=== PATIENT | female | born 1990 | race Caucasian/White ===

== ENCOUNTER 2019-04-11 22:31 | Emergency (ER) | payer BC ==
--- NOTE | 2019-04-11 22:53 | EDM.PDOC ---
ED HPI GENERAL MEDICAL PROBLEM - General Chief Complaint: ENT Problem Stated Complaint: ISSUES WITH RT EAR Time Seen by Provider: 04/11/19 22:51 Source of Information: Reports: Patient - History of Present Illness INITIAL COMMENTS - FREE TEXT/NARRATIVE: HISTORY AND PHYSICAL: History of present illness: []Patient with anxiety presents with a "whooshing sensation in her right ear ", she states that the whooshing sensation makes her panicky and then she notices that her heart rate increases when she is panicking at current she is in no distress She has a history of seasonal allergy and anxiety Review of systems: As per history of present illness and below otherwise all systems reviewed and negative. Past medical history: As per history of present illness and as reviewed below otherwise noncontributory. Surgical history: As per history of present illness and as reviewed below otherwise noncontributory. Social history: No reported history of drug or alcohol abuse. Family history: As per history of present illness and as reviewed below otherwise noncontributory. Physical exam: HEENT: Atraumatic, normocephalic, pupils reactive, negative for conjunctival pallor or scleral icterus, mucous membranes moist, throat clear, neck supple, nontender, trachea midline. Bilateral ear effusion noted Lungs: Clear to auscultation, breath sounds equal bilaterally, chest nontender. Heart: S1S2, regular, negative for clicks, rubs, or JVD. Abdomen: Soft, nondistended, nontender. Negative for masses or hepatosplenomegaly. Negative for costovertebral tenderness. Pelvis: Stable nontender. Genitourinary: Deferred. Rectal: Deferred. Extremities: Atraumatic, negative for cords or calf pain. Neurovascular unremarkable. Neuro: Awake, alert, oriented. Cranial nerves II through XII unremarkable. Cerebellum unremarkable. Motor and sensory unremarkable throughout. Exam nonfocal. Diagnostics: [Clinical ] Therapeutics: [Continue current daily medications Prednisone 10 mg by mouth daily for 5 days ] Impression: [ bilateral ear effusion Seasonal allergies Anxiety ] Definitive disposition and diagnosis as appropriate pending reevaluation and review of above. Bilateral Chest Pain Score (Numeric/FACES): 10 - Related Data Allergies Allergy/AdvReac Type Severity Reaction Status Date / Time No Known Allergies Allergy Verified 04/11/19 22:43 Home Meds: Home Meds Gabapentin [Neurontin] 800 mg PO DAILY 04/11/19 [History] Past Medical History HEENT History: Reports: Other (See Below) Other HEENT History: tinittis Psychiatric History: Reports: Anxiety Social & Family History - Tobacco Use Smoking Status *Q: Former Smoker Used Tobacco, but Quit: Yes Month/Year Tobacco Last Used: 2014 - Recreational Drug Use Recreational Drug Use: No ED ROS GENERAL - Review of Systems Review Of Systems: See Below ED EXAM, GENERAL - Physical Exam Exam: See Below Course - Vital Signs Last Recorded V/S: Last Vital Signs Temp 97.4 F 04/11/19 22:40 Pulse 124 H 04/11/19 22:40 Resp BP 124/86 04/11/19 22:40 Pulse Ox 100 04/11/19 22:40 Departure - Departure Time of Disposition: 22:52 Disposition: Home, Self-Care 01 Condition: Good Clinical Impression: Middle ear effusion - Discharge Information Referrals: PCP,None [Primary Care Provider] - Additional Instructions: The following information is given to patients seen in the emergency department who are being discharged to home. This information is to outline your options for follow-up care. We provide all patients seen in our emergency department with a follow-up referral. The need for follow-up, as well as the timing and circumstances, are variable depending upon the specifics of your emergency department visit. If you don't have a primary care physician on staff, we will provide you with a referral. We always advise you to contact your personal physician following an emergency department visit to inform them of the circumstance of the visit and for follow-up with them and/or the need for any referrals to a consulting specialist. The emergency department will also refer you to a specialist when appropriate. This referral assures that you have the opportunity for follow-up care with a specialist. All of these measure are taken in an effort to provide you with optimal care, which includes your follow-up. Under all circumstances we always encourage you to contact your private physician who remains a resource for coordinating your care. When calling for follow-up care, please make the office aware that this follow-up is from your recent emergency room visit. If for any reason you are refused follow-up, please contact the [facility] emergency department at and asked to speak to the emergency department charge nurse.
== END 2019-04-11 23:16 | disposition home or self-care (01) ==
LOC: MW.ED 22:31
DX: H74.8X3 Other specified disorders of middle ear and mastoid, bilateral (principal); F41.9 Anxiety disorder, unspecified; Z87.891 Personal history of nicotine dependence; Z79.899 Other long term (current) drug therapy
CPT/HCPCS: 99282

== ENCOUNTER 2019-04-12 04:18 | Emergency (ER) | payer BC ==
--- NOTE | 2019-04-12 05:34 | EDM.PDOC ---
ED HPI GENERAL MEDICAL PROBLEM - General Chief Complaint: General Stated Complaint: ISSUE WITH RT EAR Time Seen by Provider: 04/12/19 05:30 Source of Information: Reports: Patient - History of Present Illness INITIAL COMMENTS - FREE TEXT/NARRATIVE: HISTORY AND PHYSICAL: History of present illness: []Patient is in with various complaints, she has a known history of anxiety she is on Effexor for 8 years, over the last 12 months she has stopped some other medications including Seroquel Klonopin and Depakote, her previous provider was Dr. Connolly in [place], she is recently moved to [place] within the last week, and has been having increased symptoms of anxiety and unable to sleep, she does have a fianc at home as well as a 2-year-old child 7-year-old child. All are doing well however she has been dealing with anxiety she has no suicidal homicidal ideation She likely requires medication adjustment or addition we did discuss this in detail I have suggested she follow[facility]up with [facility] and establishing a primary care for slow subtle adjustments she stopped her previous medications that she was sleeping too much resolved on very high doses of Seroquel and Klonopin She currently has no symptoms such as fever nausea vomiting diarrhea constipation chest pain shortness breath headache dizziness or palpitation no bowel or urine symptoms Review of systems: As per history of present illness and below otherwise all systems reviewed and negative. Past medical history: As per history of present illness and as reviewed below otherwise noncontributory. Surgical history: As per history of present illness and as reviewed below otherwise noncontributory. Social history: No reported history of drug or alcohol abuse. Family history: As per history of present illness and as reviewed below otherwise noncontributory. Physical exam: HEENT: Atraumatic, normocephalic, pupils reactive, negative for conjunctival pallor or scleral icterus, mucous membranes moist, throat clear, neck supple, nontender, trachea midline. Lungs: Clear to auscultation, breath sounds equal bilaterally, chest nontender. Heart: S1S2, regular, negative for clicks, rubs, or JVD. Abdomen: Soft, nondistended, nontender. Negative for masses or hepatosplenomegaly. Negative for costovertebral tenderness. Pelvis: Stable nontender. Genitourinary: Deferred. Rectal: Deferred. Extremities: Atraumatic, negative for cords or calf pain. Neurovascular unremarkable. Neuro: Awake, alert, oriented. Cranial nerves II through XII unremarkable. Cerebellum unremarkable. Motor and sensory unremarkable throughout. Exam nonfocal. Diagnostics: [Clinical ] Therapeutics: [None ] Impression: Worried well ] anxiety about health Definitive disposition and diagnosis as appropriate pending reevaluation and review of above. Right Shoulder Pain Score (Numeric/FACES): 5 - Related Data Allergies Allergy/AdvReac Type Severity Reaction Status Date / Time No Known Allergies Allergy Verified 04/12/19 04:35 Home Meds: Home Meds Gabapentin [Neurontin] 800 mg PO DAILY 04/11/19 [History] Past Medical History HEENT History: Reports: Other (See Below) Other HEENT History: tinnitis Psychiatric History: Reports: Anxiety Social & Family History - Tobacco Use Smoking Status *Q: Former Smoker Used Tobacco, but Quit: Yes Month/Year Tobacco Last Used: 2014 - Recreational Drug Use Recreational Drug Use: No ED ROS GENERAL - Review of Systems Review Of Systems: See Below ED EXAM, GENERAL - Physical Exam Exam: See Below Course - Vital Signs Last Recorded V/S: Last Vital Signs Temp 97.9 F 04/12/19 04:26 Pulse 85 04/12/19 04:26 Resp BP 137/84 04/12/19 04:26 Pulse Ox 100 04/12/19 04:26 Departure - Departure Time of Disposition: 05:33 Disposition: Home, Self-Care 01 Condition: Good Clinical Impression: Anxiety about health - Discharge Information Referrals: PCP,None [Primary Care Provider] - Additional Instructions: Information provided for [facility] Continue current medication Follow- and establish primary care provider [facility] [address] [place] [id number] The following information is given to patients seen in the emergency department who are being discharged to home. This information is to outline your options for follow-up care. We provide all patients seen in our emergency department with a follow-up referral. The need for follow-up, as well as the timing and circumstances, are variable depending upon the specifics of your emergency department visit. If you don't have a primary care physician on staff, we will provide you with a referral. We always advise you to contact your personal physician following an emergency department visit to inform them of the circumstance of the visit and for follow-up with them and/or the need for any referrals to a consulting specialist. The emergency department will also refer you to a specialist when appropriate. This referral assures that you have the opportunity for follow-up care with a specialist. All of these measure are taken in an effort to provide you with optimal care, which includes your follow-up. Under all circumstances we always encourage you to contact your private physician who remains a resource for coordinating your care. When calling for follow-up care, please make the office aware that this follow-up is from your recent emergency room visit. If for any reason you are refused follow-up, please contact the [facility] emergency department at and asked to speak to the emergency department charge nurse.
== END 2019-04-12 05:40 | disposition home or self-care (01) ==
LOC: MW.ED 04:18
DX: F41.9 Anxiety disorder, unspecified (principal); Z79.899 Other long term (current) drug therapy; Z87.891 Personal history of nicotine dependence
CPT/HCPCS: 99282

== ENCOUNTER 2019-04-12 21:59 | Emergency (ER) | payer BC ==
--- NOTE | 2019-04-12 22:31 | EDM.PDOC ---
ED HPI GENERAL MEDICAL PROBLEM - General Chief Complaint: ENT Problem Stated Complaint: BUZZING IN EAR Time Seen by Provider: 04/12/19 22:19 - History of Present Illness INITIAL COMMENTS - FREE TEXT/NARRATIVE: HISTORY AND PHYSICAL: History of present illness: Patient is a 28-year-old female who presents with a concern of causing in her right ear she was seen yesterday for this and states she was prescribed steroids for fluid behind her ear. She is extremely anxious and denies dizziness fever chills nausea vomiting or other complaints Review of systems: As per history of present illness and below otherwise all systems reviewed and negative. Past medical history: As per history of present illness and as reviewed below otherwise noncontributory. Surgical history: As per history of present illness and as reviewed below otherwise noncontributory. Social history: No reported history of drug or alcohol abuse. Family history: As per history of present illness and as reviewed below otherwise noncontributory. Physical exam: HEENT: Atraumatic, normocephalic, pupils reactive, negative for conjunctival pallor or scleral icterus, mucous membranes moist, throat clear, neck supple, nontender, trachea midline. Lungs: Clear to auscultation, breath sounds equal bilaterally, chest nontender. Heart: S1S2, regular, negative for clicks, rubs, or JVD. Abdomen: Soft, nondistended, nontender. Negative for masses or hepatosplenomegaly. Negative for costovertebral tenderness. Pelvis: Stable nontender. Genitourinary: Deferred. Rectal: Deferred. Extremities: Atraumatic, negative for cords or calf pain. Neurovascular unremarkable. Neuro: Awake, alert, oriented. Cranial nerves II through XII unremarkable. Cerebellum unremarkable. Motor and sensory unremarkable throughout. Exam nonfocal. Diagnostics: None Therapeutics: None Impression: #1 medical screening exam Definitive disposition and diagnosis as appropriate pending reevaluation and review of above. Right Shoulder Pain Score (Numeric/FACES): 8 - Related Data Allergies Allergy/AdvReac Type Severity Reaction Status Date / Time Iodinated Contrast- Oral and Allergy Hives Verified 04/12/19 22:20 IV Dye Home Meds: Home Meds Gabapentin [Neurontin] 800 mg PO DAILY 04/11/19 [History] Past Medical History HEENT History: Reports: Other (See Below) Other HEENT History: tinnitis Psychiatric History: Reports: Anxiety Social & Family History - Tobacco Use Smoking Status *Q: Former Smoker Used Tobacco, but Quit: Yes Month/Year Tobacco Last Used: 2014 Tobacco Use Comment: pt currently wearing a nicotine patch - Recreational Drug Use Recreational Drug Use: No ED ROS GENERAL - Review of Systems Review Of Systems: ROS reveals no pertinent complaints other than HPI. ED EXAM, GENERAL - Physical Exam Exam: See Below Course - Vital Signs Last Recorded V/S: Last Vital Signs Temp 36.4 C 04/12/19 22:16 Pulse 122 H 04/12/19 22:16 Resp BP 128/89 04/12/19 22:16 Pulse Ox 100 04/12/19 22:16 Departure - Departure Time of Disposition: 22:28 Disposition: Home, Self-Care 01 Condition: Good Clinical Impression: Encounter for medical screening examination - Discharge Information Referrals: PCP,None [Primary Care Provider] - Additional Instructions: The following information is given to patients seen in the emergency department who are being discharged to home. This information is to outline your options for follow-up care. We provide all patients seen in our emergency department with a follow-up referral. The need for follow-up, as well as the timing and circumstances, are variable depending upon the specifics of your emergency department visit. If you don't have a primary care physician on staff, we will provide you with a referral. We always advise you to contact your personal physician following an emergency department visit to inform them of the circumstance of the visit and for follow-up with them and/or the need for any referrals to a consulting specialist. The emergency department will also refer you to a specialist when appropriate. This referral assures that you have the opportunity for followup care with a specialist. All of these measure are taken in an effort to provide you with optimal care, which includes your followup. Under all circumstances we always encourage you to contact your private physician who remains a resource for coordinating your care. When calling for followup care, please make the office aware that this follow-up is from your recent emergency room visit. If for any reason you are refused follow-up, please contact the [facility] emergency department at and asked to speak to the emergency department charge nurse. Follow-up primary medical doctor call ENT as referred to schedule routine appointment return as needed as discussed continue current medications
== END 2019-04-12 22:40 | disposition home or self-care (01) ==
LOC: MW.ED 21:59
DX: Z13.5 Encounter for screening for eye and ear disorders (principal); Z91.041 Radiographic dye allergy status; Z87.891 Personal history of nicotine dependence
CPT/HCPCS: 99283

== ENCOUNTER 2019-04-18 20:08 | Emergency (ER) | payer BC | END 2019-04-18 20:45 | LOC: MW.ED 20:08 | DX: Z53.21 Procedure and treatment not carried out due to patient leaving prior to being seen by health care provider (principal) ==

== ENCOUNTER 2019-05-28 14:09 | Emergency (ER) | payer SELFPAY ==
--- NOTE | 2019-05-28 15:49 | EDM.PDOC ---
ED HPI GENERAL MEDICAL PROBLEM - General Chief Complaint: General Stated Complaint: NOT FEELING WELL Time Seen by Provider: 05/28/19 15:15 Source of Information: Reports: Patient History Limitations: Reports: No Limitations - History of Present Illness INITIAL COMMENTS - FREE TEXT/NARRATIVE: Presents reporting "all over muscle weakness" she states that about 5 AM she woke up and "couldn't move my body" that went away and then she became nervous at lunch and couldn't move her body again. At night her legs twitch, she usually gets chest pain and sleep paralysis while falling asleep at night. She has not had those symptoms during the day and she was slurring her speech due to muscle weakness so she came in. She has a long history of anxiety and psychiatric problems and is been hospitalized in a psychiatric facility numerous times. She has been on Klonopin, Depakote, Seroquel, Effexor and gabapentin. Most recently she was on 3200 mg gabapentin daily and is weaned herself down to 400 mg daily. Other than psychiatric issues she has no past medical problems. She is , sexually active, and on a Mirena for control. - Related Data Allergies Allergy/AdvReac Type Severity Reaction Status Date / Time Iodinated Contrast- Oral and Allergy Hives Verified 05/28/19 14:23 IV Dye Home Meds: Home Meds Gabapentin [Neurontin] 500 mg PO DAILY 04/11/19 [History] Venlafaxine [Effexor] 150 mg PO DAILY 05/28/19 [History] Past Medical History HEENT History: Reports: Other (See Below) Other HEENT History: tinnitis Cardiovascular History: Reports: None Respiratory History: Reports: None Gastrointestinal History: Reports: None Genitourinary History: Reports: None [employer] History: Reports: None Musculoskeletal History: Reports: None Neurological History: Reports: Other (See Below) Other Neuro History: sleep paralysis Psychiatric History: Reports: Anxiety Endocrine/Metabolic History: Reports: None Hematologic History: Reports: None Immunologic History: Reports: None Oncologic (Cancer) History: Reports: None Dermatologic History: Reports: None - Past Surgical History Head Surgeries/Procedures: Reports: None HEENT Surgical History: Reports: None Cardiovascular Surgical History: Reports: None Respiratory Surgical History: Reports: None GI Surgical History: Reports: None Female Surgical History: Reports: None Endocrine Surgical History: Reports: None Neurological Surgical History: Reports: None Musculoskeletal Surgical History: Reports: None Oncologic Surgical History: Reports: None Dermatological Surgical History: Reports: None Social & Family History - Family History Family Medical History: Noncontributory - Tobacco Use Smoking Status *Q: Former Smoker Used Tobacco, but Quit: Yes Month/Year Tobacco Last Used: 3 years - Caffeine Use Caffeine Use: Reports: Coffee - Recreational Drug Use Recreational Drug Use: No ED ROS GENERAL - Review of Systems Review Of Systems: ROS reveals no pertinent complaints other than HPI. ED EXAM, GENERAL - Physical Exam Exam: See Below Exam Limited By: No Limitations General Appearance: Alert, No Apparent Distress Ears: Normal External Exam Nose: Normal Inspection Throat/Mouth: Normal Inspection Head: Atraumatic, Normocephalic Neck: Normal Inspection Respiratory/Chest: No Respiratory Distress, Lungs Clear, Normal Breath Sounds Cardiovascular: Normal Peripheral Pulses, Regular Rate, Rhythm, No Murmur Extremities: Normal Inspection Neurological: Alert, Oriented, CN II-XII Intact, Normal Cognition, Normal Gait, No Motor/Sensory Deficits Psychiatric: Normal Affect, Normal Mood Skin Exam: Warm, Dry, Intact, Normal Color, No Rash Lymphatic: No Adenopathy Course - Vital Signs Last Recorded V/S: Last Vital Signs Temp 36.6 C 05/28/19 14:21 Pulse 103 H 05/28/19 14:21 Resp 18 05/28/19 14:21 BP 131/97 H 05/28/19 14:21 Pulse Ox 100 05/28/19 14:21 Departure - Departure Time of Disposition: 15:53 Disposition: Home, Self-Care 01 Clinical Impression: Anxiety - Discharge Information Referrals: PCP,None [Primary Care Provider] - [facility] [Outside] [facility] [Outside] Additional Instructions: 1. Please follow-up in primary care for your anxiety symptoms.
== END 2019-05-28 16:20 | disposition home or self-care (01) ==
LOC: MW.ED 14:09
DX: F41.9 Anxiety disorder, unspecified (principal); Z91.041 Radiographic dye allergy status; Z79.899 Other long term (current) drug therapy; Z87.891 Personal history of nicotine dependence
CPT/HCPCS: 99283

== ENCOUNTER 2019-06-10 09:53 | Emergency (ER) | payer BC ==
[2019-06-10] MEDS ORDERED: Sodium Chloride 0.9% 1,000 ML IV ONE (10:00)
[2019-06-10] MEDS ORDERED: Sodium Chloride 0.9% 250 ML IV SCH (10:00)
--- NOTE | 2019-06-10 10:04 | EDM.PDOC ---
ED HPI GENERAL MEDICAL PROBLEM - General Chief Complaint: Cardiovascular Problem Stated Complaint: RACING HEART Time Seen by Provider: 06/10/19 09:56 Source of Information: Reports: Patient History Limitations: Reports: No Limitations - History of Present Illness INITIAL COMMENTS - FREE TEXT/NARRATIVE: History of present illness: []Patient has a history of anxiety but this morning states that she feels her heart racing but she does not feel anxious. She has generalized numbness and tingling and some mild shortness of breath which she has when she does have anxiety attacks. After arrival and workup was being processed patient realized she forgot to take her gabapentin this morning. Review of systems: As per history of present illness and below otherwise all systems reviewed and negative. Past medical history: As per history of present illness and as reviewed below otherwise noncontributory. Surgical history: As per history of present illness and as reviewed below otherwise noncontributory. Social history: No reported history of drug or alcohol abuse. Family history: As per history of present illness and as reviewed below otherwise noncontributory. Physical exam: General: Well developed, well nourished in NAD HEENT: Atraumatic, normocephalic, pupils reactive, negative for conjunctival pallor or scleral icterus, mucous membranes moist, throat clear, neck supple, nontender, trachea midline. Lungs: Clear to auscultation, breath sounds equal bilaterally, chest nontender. Heart: S1S2, regular, tachycardic negative for clicks, rubs, or JVD. Abdomen: NABS, Soft, nondistended, nontender. Negative for masses or hepatosplenomegaly. Negative for costovertebral tenderness. Pelvis: Stable nontender. Genitourinary: Deferred. Rectal: Deferred. Extremities: Atraumatic, negative for cords or calf pain. Neurovascular unremarkable. Neuro: Awake, alert, oriented. Cranial nerves II through XII unremarkable. Cerebellum unremarkable. Motor and sensory unremarkable throughout. Exam nonfocal. Skin:warm and dry Diagnostics: CBC, chemistry, TSH, drug screen Therapeutics: IV hydration ED Course: Patient remembered she forgot her Neurontin tablet this morning and took her own pill while in the ED Impression: Anxiety reaction Prescriptions: None Plan: Take meds as directed, follow up with your primary care physician, return to ER if symptoms worsen or change. Definitive disposition and diagnosis as appropriate pending reevaluation and review of above. - Related Data Allergies Allergy/AdvReac Type Severity Reaction Status Date / Time Iodinated Contrast- Oral and Allergy Hives Verified 06/10/19 10:14 IV Dye Home Meds: Home Meds Gabapentin [Neurontin] 500 mg PO DAILY 04/11/19 [History] Venlafaxine [Effexor] 150 mg PO DAILY 05/28/19 [History] Past Medical History HEENT History: Reports: Other (See Below) Other HEENT History: tinnitis Cardiovascular History: Reports: None Respiratory History: Reports: None Gastrointestinal History: Reports: None Genitourinary History: Reports: None OFFICE AIDE History: Reports: None Musculoskeletal History: Reports: None Neurological History: Reports: Other (See Below) Other Neuro History: sleep paralysis Psychiatric History: Reports: Anxiety Endocrine/Metabolic History: Reports: None Hematologic History: Reports: None Immunologic History: Reports: None Oncologic (Cancer) History: Reports: None Dermatologic History: Reports: None - Past Surgical History Head Surgeries/Procedures: Reports: None HEENT Surgical History: Reports: None Cardiovascular Surgical History: Reports: None Respiratory Surgical History: Reports: None GI Surgical History: Reports: None Female Surgical History: Reports: None Endocrine Surgical History: Reports: None Neurological Surgical History: Reports: None Musculoskeletal Surgical History: Reports: None Oncologic Surgical History: Reports: None Dermatological Surgical History: Reports: None Social & Family History - Family History Family Medical History: Noncontributory - Caffeine Use Caffeine Use: Reports: Coffee ED ROS GENERAL - Review of Systems Review Of Systems: See Below ED EXAM, GENERAL - Physical Exam Exam: See Below Course - Vital Signs Last Recorded V/S: Last Vital Signs Temp 98.3 F 06/10/19 10:12 Pulse 108 H 06/10/19 11:20 Resp 18 06/10/19 11:20 BP 124/88 06/10/19 11:20 Pulse Ox 100 06/10/19 11:20 - Orders/Labs/Meds Orders: Active Orders 24 hr Category Date Time Status EKG 12 Lead [EKG Documentation Completion] [RC] STAT Care 06/10/19 10:35 Active HCG QUALITATIVE,URINE [URCHEM] Stat Lab 06/10/19 10:48 Received Saline Lock Insert [OM.PC] Stat Oth 06/10/19 10:21 Ordered Labs: Laboratory Tests 06/10/19 06/10/19 06/10/19 Range/Units 10:05 10:05 10:48 WBC 6.91 (4.0-11.0) K/uL RBC 4.62 (4.30-5.90) M/uL Hgb 13.1 (12.0-16.0) g/dL Hct 38.9 (36.0-46.0) % MCV 84.2 (80.0-98.0) fL MCH 28.4 (27.0-32.0) pg MCHC 33.7 (31.0-37.0) g/dL RDW Std Deviation 40.6 (28.0-62.0) fl RDW Coeff of [place] 13 (11.0-15.0) % Plt Count 278 (150-400) K/uL MPV 9.40 (7.40-12.00) fL Neut % (Auto) 66.0 (48.0-80.0) % Lymph % (Auto) 22.9 (16.0-40.0) % [place] % (Auto) 7.2 (0.0-15.0) % Eos % (Auto) 3.2 (0.0-7.0) % Baso % (Auto) 0.7 (0.0-1.5) % Neut # (Auto) 4.6 (1.4-5.7) K/uL Lymph # (Auto) 1.6 (0.6-2.4) K/uL [place] # (Auto) 0.5 (0.0-0.8) K/uL Eos # (Auto) 0.2 (0.0-0.7) K/uL Baso # (Auto) 0.1 (0.0-0.1) K/uL Nucleated RBC % 0.0 /100WBC Nucleated RBCs # 0 K/uL Sodium 135 L (136-145) mmol/L Potassium 3.3 L (3.5-5.1) mmol/L Chloride 101 (98-107) mmol/L Carbon Dioxide 24.1 (21.0-32.0) mmol/L BUN 12 (7.0-18.0) mg/dL Creatinine 0.9 (0.6-1.0) mg/dL Est Cr Clr Drug Dosing 78.36 mL/min Estimated GFR (MDRD) > 60.0 ml/min Glucose 89 (74-106) mg/dL Calcium 8.9 (8.5-10.1) mg/dL Total Bilirubin 0.2 (0.2-1.0) mg/dL AST 16 (15-37) IU/L ALT 18 (14-63) IU/L Alkaline Phosphatase 79 (46-116) U/L Total Protein 7.3 (6.4-8.2) g/dL Albumin 4.0 (3.4-5.0) g/dL Globulin 3.3 (2.6-4.0) g/dL Albumin/Globulin Ratio 1.2 (0.9-1.6) TSH 3rd Generation 2.80 (0.36-3.74) uIU/mL Urine Color YELLOW Urine Appearance CLEAR Urine pH 6.0 (5.0-8.0) Ur Specific [place] <= 1.005 (1.001-1.035) Urine Protein NEGATIVE (NEGATIVE) mg/dL Urine Glucose (UA) NEGATIVE (NEGATIVE) mg/dL Urine Ketones NEGATIVE (NEGATIVE) mg/dL Urine Occult Blood NEGATIVE (NEGATIVE) Urine Nitrite NEGATIVE (NEGATIVE) Urine Bilirubin NEGATIVE (NEGATIVE) Urine Urobilinogen 0.2 (<2.0) EU/dL Ur Leukocyte Esterase NEGATIVE (NEGATIVE) Urine RBC NONE SEEN (0-2/HPF) Urine WBC 0-1 (0-5/HPF) Ur Epithelial Cells FEW (NONE-FEW) Urine Bacteria FEW (NEGATIVE) Urine Opiates Screen (NEGATIVE) Ur Oxycodone Screen (NEGATIVE) Urine Methadone Screen (NEGATIVE) Ur Barbiturates Screen (NEGATIVE) Ur Phencyclidine Scrn (NEGATIVE) Ur Amphetamine Screen (NEGATIVE) U Methamphetamines Scrn (NEGATIVE) U Benzodiazepines Scrn (NEGATIVE) U Cocaine Metab Screen (NEGATIVE) U Marijuana (THC) Screen (NEGATIVE) 06/10/19 Range/Units 10:48 WBC (4.0-11.0) K/uL RBC (4.30-5.90) M/uL Hgb (12.0-16.0) g/dL Hct (36.0-46.0) % MCV (80.0-98.0) fL MCH (27.0-32.0) pg MCHC (31.0-37.0) g/dL RDW Std Deviation (28.0-62.0) fl RDW Coeff of [place] (11.0-15.0) % Plt Count (150-400) K/uL MPV (7.40-12.00) fL Neut % (Auto) (48.0-80.0) % Lymph % (Auto) (16.0-40.0) % [place] % (Auto) (0.0-15.0) % Eos % (Auto) (0.0-7.0) % Baso % (Auto) (0.0-1.5) % Neut # (Auto) (1.4-5.7) K/uL Lymph # (Auto) (0.6-2.4) K/uL [place] # (Auto) (0.0-0.8) K/uL Eos # (Auto) (0.0-0.7) K/uL Baso # (Auto) (0.0-0.1) K/uL Nucleated RBC % /100WBC Nucleated RBCs # K/uL Sodium (136-145) mmol/L Potassium (3.5-5.1) mmol/L Chloride (98-107) mmol/L Carbon Dioxide (21.0-32.0) mmol/L BUN (7.0-18.0) mg/dL Creatinine (0.6-1.0) mg/dL Est Cr Clr Drug Dosing mL/min Estimated GFR (MDRD) ml/min Glucose (74-106) mg/dL Calcium (8.5-10.1) mg/dL Total Bilirubin (0.2-1.0) mg/dL AST (15-37) IU/L ALT (14-63) IU/L Alkaline Phosphatase (46-116) U/L Total Protein (6.4-8.2) g/dL Albumin (3.4-5.0) g/dL Globulin (2.6-4.0) g/dL Albumin/Globulin Ratio (0.9-1.6) TSH 3rd Generation (0.36-3.74) uIU/mL Urine Color Urine Appearance Urine pH (5.0-8.0) Ur Specific [place] (1.001-1.035) Urine Protein (NEGATIVE) mg/dL Urine Glucose (UA) (NEGATIVE) mg/dL Urine Ketones (NEGATIVE) mg/dL Urine Occult Blood (NEGATIVE) Urine Nitrite (NEGATIVE) Urine Bilirubin (NEGATIVE) Urine Urobilinogen (<2.0) EU/dL Ur Leukocyte Esterase (NEGATIVE) Urine RBC (0-2/HPF) Urine WBC (0-5/HPF) Ur Epithelial Cells (NONE-FEW) Urine Bacteria (NEGATIVE) Urine Opiates Screen NEGATIVE (NEGATIVE) Ur Oxycodone Screen NEGATIVE (NEGATIVE) Urine Methadone Screen NEGATIVE (NEGATIVE) Ur Barbiturates Screen NEGATIVE (NEGATIVE) Ur Phencyclidine Scrn NEGATIVE (NEGATIVE) Ur Amphetamine Screen NEGATIVE (NEGATIVE) U Methamphetamines Scrn NEGATIVE (NEGATIVE) U Benzodiazepines Scrn NEGATIVE (NEGATIVE) U Cocaine Metab Screen NEGATIVE (NEGATIVE) U Marijuana (THC) Screen NEGATIVE (NEGATIVE) Meds: Medications Discontinued Medications Generic Name Dose Route Start Last Admin Trade Name Freq PRN Reason Stop Dose Admin Sodium Chloride 1,000 mls @ 999 mls/hr 06/10/19 10:00 06/10/19 10:08 Normal Saline IV 06/10/19 11:00 999 mls/hr .Bolus ONE Administration Sodium Chloride 10 ml 06/10/19 10:21 Saline Flush FLUSH ASDIRECTED PRN Keep Vein Open Sodium Chloride 2.5 ml 06/10/19 10:21 Saline Flush FLUSH ASDIRECTED PRN Keep Vein Open Departure - Departure Time of Disposition: 11:27 Disposition: Home, Self-Care 01 Condition: Good Clinical Impression: Anxiety reaction Instructions: Generalized Anxiety Disorder, Adult Referrals: PCP,Unknown [Primary Care Provider] - Forms: ED Department Discharge Additional Instructions: The following information is given to patients seen in the emergency department who are being discharged to home. This information is to outline your options for follow-up care. We provide all patients seen in our emergency department with a follow-up referral. The need for follow-up, as well as the timing and circumstances, are variable depending upon the specifics of your emergency department visit. If you don't have a primary care physician on staff, we will provide you with a referral. We always advise you to contact your personal physician following an emergency department visit to inform them of the circumstance of the visit and for follow-up with them and/or the need for any referrals to a consulting specialist. The emergency department will also refer you to a specialist when appropriate. This referral assures that you have the opportunity for follow-up care with a specialist. All of these measure are taken in an effort to provide you with optimal care, which includes your follow-up. Under all circumstances we always encourage you to contact your private physician who remains a resource for coordinating your care. When calling for follow-up care, please make the office aware that this follow-up is from your recent emergency room visit. If for any reason you are refused follow-up, please contact the [facility] Emergency Department at and asked to speak to the emergency department charge nurse. Take meds as directed, follow up with your primary care physician, return to ER if symptoms worsen or change. [facility] [address] [place] [id number] - My Orders Last 24 Hours: My Active Orders 06/10/19 10:21 Saline Lock Insert [OM.PC] Stat 06/10/19 10:35 EKG 12 Lead [EKG Documentation Completion] [RC] STAT 06/10/19 10:48 HCG QUALITATIVE,URINE [URCHEM] Stat - Assessment/Plan Last 24 Hours: My Active Orders 06/10/19 10:21 Saline Lock Insert [OM.PC] Stat 06/10/19 10:35 EKG 12 Lead [EKG Documentation Completion] [RC] STAT 06/10/19 10:48 HCG QUALITATIVE,URINE [URCHEM] Stat
[2019-06-10] MEDS ORDERED: Sodium Chloride 0.9% 10 ML Syringe FLUSH PRN (10:21)
[2019-06-10] MEDS ORDERED: Sodium Chloride 0.9% 2.5 ML Syringe FLUSH PRN (10:21)
[2019-06-10 11:00] LABS: CHLORIDE,CL 101 mmol/L (98-107); SODIUM,NA 135 mmol/L (136-145)
== END 2019-06-10 11:20 | disposition home or self-care (01) ==
LOC: MW.ED 09:53
DX: F41.1 Generalized anxiety disorder (principal); Z91.041 Radiographic dye allergy status; Z79.899 Other long term (current) drug therapy
CPT/HCPCS: 36415; 80053; 80305; 81001; 81025; 84443; 85025; 93005; 96360; 99285; J7040

== ENCOUNTER 2019-10-14 07:08 | Emergency (ER) | payer BC ==
--- NOTE | 2019-10-14 07:26 | EDM.PDOC ---
ED HPI GENERAL MEDICAL PROBLEM - General Chief Complaint: CENTRAL SERVICE TECH Problem Stated Complaint: POSSIBLE MISCARRIAGE- 10 WEEKS Time Seen by Provider: 10/14/19 09:05 - History of Present Illness INITIAL COMMENTS - FREE TEXT/NARRATIVE: HISTORY AND PHYSICAL: History of present illness: Patient's a 28-year-old white female was approximately 10 weeks who had a documented intrauterine at 8 weeks and presents a concern of vaginal bleeding and cramping. She had no dizziness chest pain shortness breath or other concern. There's been no trauma or other reported complaints patient is unsure of her ABO Rh status Review of systems: As per history of present illness and below otherwise all systems reviewed and negative. Past medical history: As per history of present illness and as reviewed below otherwise noncontributory. Surgical history: As per history of present illness and as reviewed below otherwise noncontributory. Social history: No reported history of drug or alcohol abuse. Family history: As per history of present illness and as reviewed below otherwise noncontributory. Physical exam: HEENT: Atraumatic, normocephalic, pupils reactive, negative for conjunctival pallor or scleral icterus, mucous membranes moist, throat clear, neck supple, nontender, trachea midline. Lungs: Clear to auscultation, breath sounds equal bilaterally, chest nontender. Heart: S1S2, regular, negative for clicks, rubs, or JVD. Abdomen: Soft, nondistended, nontender. Negative for masses or hepatosplenomegaly. Negative for costovertebral tenderness. Pelvis: Stable nontender. Genitourinary: Deferred. Rectal: Deferred. Extremities: Atraumatic, negative for cords or calf pain. Neurovascular unremarkable. Neuro: Awake, alert, oriented. Cranial nerves II through XII unremarkable. Cerebellum unremarkable. Motor and sensory unremarkable throughout. Exam nonfocal. Diagnostics: CBC ABO Rh Therapeutics: None Impression: #1 threatened Definitive disposition and diagnosis as appropriate pending reevaluation and review of above. - Related Data Allergies Allergy/AdvReac Type Severity Reaction Status Date / Time Iodinated Contrast Media Allergy Hives Verified 10/14/19 07:12 [Iodinated Contrast- Oral and IV Dye] Home Meds: Home Meds 147/Iron/Folic Acid [Azesco Tablet] 1 each PO DAILY 10/14/19 [History] Past Medical History HEENT History: Reports: Other (See Below) Other HEENT History: tinnitis Cardiovascular History: Reports: None Respiratory History: Reports: None Gastrointestinal History: Reports: None Genitourinary History: Reports: None CENTRAL SERVICE TECH History: Reports: None Musculoskeletal History: Reports: None Neurological History: Reports: Other (See Below) Other Neuro History: sleep paralysis Psychiatric History: Reports: Anxiety Endocrine/Metabolic History: Reports: None Hematologic History: Reports: None Immunologic History: Reports: None Oncologic (Cancer) History: Reports: None Dermatologic History: Reports: None - Infectious Disease History Infectious Disease History: Reports: None - Past Surgical History Head Surgeries/Procedures: Reports: None HEENT Surgical History: Reports: None Cardiovascular Surgical History: Reports: None Respiratory Surgical History: Reports: None GI Surgical History: Reports: None Female Surgical History: Reports: None Endocrine Surgical History: Reports: None Neurological Surgical History: Reports: None Musculoskeletal Surgical History: Reports: None Oncologic Surgical History: Reports: None Dermatological Surgical History: Reports: None Social & Family History - Family History Family Medical History: Noncontributory - Tobacco Use Smoking Status *Q: Never Smoker - Caffeine Use Caffeine Use: Reports: Coffee - Recreational Drug Use Recreational Drug Use: No ED ROS GENERAL - Review of Systems Review Of Systems: Comprehensive ROS is negative, except as noted in HPI. ED EXAM, GENERAL - Physical Exam Exam: See Below (See dictation) Course - Vital Signs Last Recorded V/S: Last Vital Signs Temp 36.4 C 10/14/19 07:12 Pulse 97 10/14/19 07:12 Resp 18 10/14/19 07:12 BP 131/91 H 10/14/19 07:12 Pulse Ox 100 10/14/19 07:12 - Orders/Labs/Meds Labs: Laboratory Tests 10/14/19 10/14/19 10/14/19 Range/Units 07:30 07:38 07:38 WBC 7.19 (4.0-11.0) K/uL RBC 4.03 L (4.30-5.90) M/uL Hgb 11.8 L (12.0-16.0) g/dL Hct 34.6 L (36.0-46.0) % MCV 85.9 (80.0-98.0) fL MCH 29.3 (27.0-32.0) pg MCHC 34.1 (31.0-37.0) g/dL RDW Std Deviation 42.9 (28.0-62.0) fl RDW Coeff of [place] 14 (11.0-15.0) % Plt Count 265 (150-400) K/uL MPV 9.30 (7.40-12.00) fL Neut % (Auto) 69.9 (48.0-80.0) % Lymph % (Auto) 22.7 (16.0-40.0) % [place] % (Auto) 4.5 (0.0-15.0) % Eos % (Auto) 2.6 (0.0-7.0) % Baso % (Auto) 0.3 (0.0-1.5) % Neut # (Auto) 5.0 (1.4-5.7) K/uL Lymph # (Auto) 1.6 (0.6-2.4) K/uL [place] # (Auto) 0.3 (0.0-0.8) K/uL Eos # (Auto) 0.2 (0.0-0.7) K/uL Baso # (Auto) 0.0 (0.0-0.1) K/uL Nucleated RBC % 0.0 /100WBC Nucleated RBCs # 0 K/uL HCG, Quant mIU/mL Urine Color YELLOW Urine Appearance SLT CLOUDY Urine pH 6.0 (5.0-8.0) Ur Specific [place] 1.025 (1.001-1.035) Urine Protein NEGATIVE (NEGATIVE) mg/dL Urine Glucose (UA) NEGATIVE (NEGATIVE) mg/dL Urine Ketones NEGATIVE (NEGATIVE) mg/dL Urine Occult Blood LARGE H (NEGATIVE) Urine Nitrite NEGATIVE (NEGATIVE) Urine Bilirubin NEGATIVE (NEGATIVE) Urine Urobilinogen 0.2 (<2.0) EU/dL Ur Leukocyte Esterase NEGATIVE (NEGATIVE) Urine RBC 3-5 (0-2/HPF) Urine WBC 2-4 (0-5/HPF) Ur Epithelial Cells FEW (NONE-FEW) Amorphous Sediment LIGHT (NEGATIVE) Urine Bacteria 1+ H (NEGATIVE) Urine Mucus NOT SEEN (NONE-MOD) Blood Type O POSITIVE 10/14/19 Range/Units 07:38 WBC (4.0-11.0) K/uL RBC (4.30-5.90) M/uL Hgb (12.0-16.0) g/dL Hct (36.0-46.0) % MCV (80.0-98.0) fL MCH (27.0-32.0) pg MCHC (31.0-37.0) g/dL RDW Std Deviation (28.0-62.0) fl RDW Coeff of [place] (11.0-15.0) % Plt Count (150-400) K/uL MPV (7.40-12.00) fL Neut % (Auto) (48.0-80.0) % Lymph % (Auto) (16.0-40.0) % [place] % (Auto) (0.0-15.0) % Eos % (Auto) (0.0-7.0) % Baso % (Auto) (0.0-1.5) % Neut # (Auto) (1.4-5.7) K/uL Lymph # (Auto) (0.6-2.4) K/uL [place] # (Auto) (0.0-0.8) K/uL Eos # (Auto) (0.0-0.7) K/uL Baso # (Auto) (0.0-0.1) K/uL Nucleated RBC % /100WBC Nucleated RBCs # K/uL HCG, Quant 64723.0 mIU/mL Urine Color Urine Appearance Urine pH (5.0-8.0) Ur Specific [place] (1.001-1.035) Urine Protein (NEGATIVE) mg/dL Urine Glucose (UA) (NEGATIVE) mg/dL Urine Ketones (NEGATIVE) mg/dL Urine Occult Blood (NEGATIVE) Urine Nitrite (NEGATIVE) Urine Bilirubin (NEGATIVE) Urine Urobilinogen (<2.0) EU/dL Ur Leukocyte Esterase (NEGATIVE) Urine RBC (0-2/HPF) Urine WBC (0-5/HPF) Ur Epithelial Cells (NONE-FEW) Amorphous Sediment (NEGATIVE) Urine Bacteria (NEGATIVE) Urine Mucus (NONE-MOD) Blood Type Meds: Medications Discontinued Medications Generic Name Dose Route Start Last Admin Trade Name Freq PRN Reason Stop Dose Admin Acetaminophen 1,000 mg 10/14/19 08:30 10/14/19 08:37 Tylenol Extra Strength PO 10/14/19 08:31 1,000 mg ONETIME ONE Administration Departure - Departure Time of Disposition: 09:06 Disposition: Home, Self-Care 01 Condition: Good Clinical Impression: Threatened , Urinary tract infection - Discharge Information Referrals: PCP,None [Primary Care Provider] - Forms: ED Department Discharge Additional Instructions: The following information is given to patients seen in the emergency department who are being discharged to home. This information is to outline your options for follow-up care. We provide all patients seen in our emergency department with a follow-up referral. The need for follow-up, as well as the timing and circumstances, are variable depending upon the specifics of your emergency department visit. If you don't have a primary care physician on staff, we will provide you with a referral. We always advise you to contact your personal physician following an emergency department visit to inform them of the circumstance of the visit and for follow-up with them and/or the need for any referrals to a consulting specialist. The emergency department will also refer you to a specialist when appropriate. This referral assures that you have the opportunity for followup care with a specialist. All of these measure are taken in an effort to provide you with optimal care, which includes your followup. Under all circumstances we always encourage you to contact your private physician who remains a resource for coordinating your care. When calling for followup care, please make the office aware that this follow-up is from your recent emergency room visit. If for any reason you are refused follow-up, please contact the [facility] emergency department at and asked to speak to the emergency department charge nurse. Vaginal rest as discussed Keflex as prescribed follow-up CENTRAL SERVICE TECH he return as needed as discussed
[2019-10-14] MEDS ORDERED: Acetaminophen 500 MG Tab PO ONE (08:30)
== END 2019-10-14 09:35 | disposition home or self-care (01) ==
LOC: MW.ED 07:08
DX: O20.0 Threatened abortion (principal); O23.41 Unspecified infection of urinary tract in pregnancy, first trimester; Z91.041 Radiographic dye allergy status; Z3A.10 10 weeks gestation of pregnancy
CPT/HCPCS: 36415; 81001; 84702; 85025; 86900; 86901; 99284; A9270; 99283

== ENCOUNTER 2019-12-11 13:11 | Emergency (ER) | payer BC, OTHER ==
--- NOTE | 2019-12-11 14:42 | EDM.PDOC ---
ED [facility] GENERAL MEDICAL PROBLEM - General Chief Complaint: Cardiovascular Problem Stated Complaint: HEART RACING Time Seen by Provider: 12/11/19 14:43 Source of Information: Reports: Patient History Limitations: Reports: No Limitations - History of Present Illness INITIAL COMMENTS - FREE TEXT/NARRATIVE: Patient is a 29-year-old female with a past medical history of anxiety presenting with a chief complaint of feeling anxious and like her heart is racing. Patient states the symptoms have been going on all day. Patient reports life stressors such as custody issues with her current children. Patient states she is approximately 18 weeks and is having anxiety regarding the . Patient denies any physical elements during and states her is going well. Patient denies any lower pelvic pain or bleeding. In addition, patient is not having any chest pain, shortness of breath and does not have any history of pulmonary embolism or DVT. Patient states she used to take Effexor for her anxiety but stopped taking it because of the and has not been able to see a psychiatrist since she has been living out here in [place]. Patient states alleviating factors include moving around and taking her mind off of heart racing. In addition to that documented in the HPI above, the additional ROS was obtained : Constitutional: Denies fevers or chills Eyes: Denies vision changes ENMT: Denies sore throat CV: Denies chest pain Resp: Denies SOB GI: Denies vomiting or diarrhea : Denies painful urination MSK: Denies recent trauma Skin: Denies new rashes Neuro: Denies new numbness or tingling or weakness Endocrine: Denies unexpected weight loss Heme: Denies bleeding disorders I have reviewed the triage vital signs Const: Well nourished, well developed, appears stated age Eyes: PERRL, no conjunctival injection HENT: NCAT, Neck supple without meningismus CV: RRR, Warm, well-perfused extremities RESP: CTAB, Unlabored respiratory effort GI: soft, non-tender, non-distended, no masses MSK: No gross deformities appreciated Skin: Warm, dry. No rashes Neuro: Alert, english and reading instructor II-XII grossly intact. Sensation and motor function of extremities grossly intact. Psych: Appropriate mood and affect Assessment and plan: Patient is a 29-year-old female presenting with anxiety. Patient's mood is stable in the emergency department while she is slightly tearful, she does not display any evidence of psychosis or severe anxiety. Patient had an EKG performed in the emergency department which showed sinus tachycardia. Broad differential diagnosis was considered including pulmonary embolism, pericarditis , infection. However based on her symptoms and exam, it seems that anxiety is much more likely. Patient's heart rate improved to 115-120 after a period of rest and reassurance. Patient given instructions and strict return precautions. All questions addressed and answered. Patient agrees with plan. - Related Data Allergies Allergy/AdvReac Type Severity Reaction Status Date / Time Iodinated Contrast Media Allergy Hives Verified 12/11/19 13:18 [Iodinated Contrast- Oral and IV Dye] Home Meds: Home Meds 147/Iron/Folic Acid [Azesco Tablet] 1 each PO DAILY 10/14/19 [History] Past Medical History HEENT History: Reports: Other (See Below) Other HEENT History: tinnitis Cardiovascular History: Reports: None Respiratory History: Reports: None Gastrointestinal History: Reports: None Genitourinary History: Reports: None PLUG WIRER History: Reports: None Musculoskeletal History: Reports: None Neurological History: Reports: Other (See Below) Other Neuro History: sleep paralysis Psychiatric History: Reports: Anxiety Endocrine/Metabolic History: Reports: None Hematologic History: Reports: None Immunologic History: Reports: None Oncologic (Cancer) History: Reports: None Dermatologic History: Reports: None - Infectious Disease History Infectious Disease History: Reports: None - Past Surgical History Head Surgeries/Procedures: Reports: None HEENT Surgical History: Reports: None Cardiovascular Surgical History: Reports: None Respiratory Surgical History: Reports: None GI Surgical History: Reports: None Female Surgical History: Reports: None Endocrine Surgical History: Reports: None Neurological Surgical History: Reports: None Musculoskeletal Surgical History: Reports: None Oncologic Surgical History: Reports: None Dermatological Surgical History: Reports: None Social & Family History - Family History Family Medical History: Noncontributory - Tobacco Use Smoking Status *Q: Never Smoker Second Hand Smoke Exposure: No - Caffeine Use Caffeine Use: Reports: None - Recreational Drug Use Recreational Drug Use: No ED ROS GENERAL - Review of Systems Review Of Systems: See Below ED EXAM, GENERAL - Physical Exam Exam: See Below Course - Vital Signs Last Recorded V/S: Last Vital Signs Temp 36.4 C 12/11/19 13:18 Pulse 154 H 12/11/19 13:18 Resp 16 12/11/19 13:18 BP 135/81 12/11/19 13:18 Pulse Ox 100 12/11/19 13:18 - Orders/Labs/Meds Orders: Active Orders 24 hr Category Date Time Status EKG Documentation Completion [RC] STAT Care 12/11/19 13:14 Active Departure - Departure Time of Disposition: 14:41 Disposition: Home, Self-Care 01 Clinical Impression: Anxiety Instructions: Living With Anxiety Referrals: Rich Jacobson MD [Primary Care Provider] - Forms: ED Department Discharge Additional Instructions: The following information is given to patients seen in the emergency department who are being discharged to home. This information is to outline your options for follow-up care. We provide all patients seen in our emergency department with a follow-up referral. The need for follow-up, as well as the timing and circumstances, are variable depending upon the specifics of your emergency department visit. If you don't have a primary care physician on staff, we will provide you with a referral. We always advise you to contact your personal physician following an emergency department visit to inform them of the circumstance of the visit and for follow-up with them and/or the need for any referrals to a consulting specialist. The emergency department will also refer you to a specialist when appropriate. This referral assures that you have the opportunity for follow-up care with a specialist. All of these measure are taken in an effort to provide you with optimal care, which includes your follow-up. Under all circumstances we always encourage you to contact your private physician who remains a resource for coordinating your care. When calling for follow-up care, please make the office aware that this follow-up is from your recent emergency room visit. If for any reason you are refused follow-up, please contact the [facility] Emergency Department at and asked to speak to the emergency department charge nurse. Please return to the emergency department immediately if you develop any chest pain, shortness of breath, lightheadedness or if anything feels out of the ordinary for you. Please set up an appointment with your PLUG WIRER as well as with the behavioral health therapist to help discuss your anxiety medications. Sepsis Event Note - Evaluation Sepsis Screening Result: No Definite Risk - Focused Exam Vital Signs: Vital Signs Temp Pulse Resp BP Pulse Ox 12/11/19 13:18 36.4 C 154 H 16 135/81 100 Date Exam was Performed: 12/11/19 Time Exam was Performed: 14:43
== END 2019-12-11 14:58 | disposition home or self-care (01) ==
LOC: MW.ED 13:11
DX: F41.9 Anxiety disorder, unspecified (principal); Z91.041 Radiographic dye allergy status
CPT/HCPCS: 93005; 99283-25

== ENCOUNTER 2020-05-06 21:42 | Inpatient (IN) | payer BC ==
[2020-05-06] MEDS ORDERED: Sodium Chloride 0.9% 10 ML SDV IV PRN (21:51)
[2020-05-06] MEDS ORDERED: Methylergonovine 0.2 MG/1 ML Amp IM PRN (21:51)
[2020-05-06] MEDS ORDERED: Butorphanol 1 MG/ML SDV IVPUSH PRN (21:51)
[2020-05-06] MEDS ORDERED: Sodium Chloride 0.9% 2.5 ML Syringe FLUSH PRN (21:51)
[2020-05-06] MEDS ORDERED: Misoprostol 200 MCG Tab PO PRN (21:51)
[2020-05-06] MEDS ORDERED: Nalbuphine 10 MG/1 ML Vial IVPUSH PRN (21:51)
[2020-05-06] MEDS ORDERED: Tranexamic Acid 1,000 MG in Sodium Chloride 0.9% 100 ML IV PRN (21:51)
[2020-05-06] MEDS ORDERED: Water For Irrigation,Sterile 1,000 ML Container IRR PRN (21:51)
[2020-05-06] MEDS ORDERED: Sodium Chloride 0.9% 10 ML Syringe FLUSH PRN (21:51)
[2020-05-06] MEDS ORDERED: Lidocaine 1% 50 ML MDV INJECT PRN (21:51)
[2020-05-06] MEDS ORDERED: Carboprost Tromethamine 250 MCG/1 ML Amp IM PRN (21:51)
--- NOTE | 2020-05-06 21:59 | PCM.LDHP ---
L&D History of Present Illness - General Date of Service: 05/06/20 Admit Problem/Dx: Patient Status Order with Admit Dx/Problem 05/06/20 21:20 Patient Status [ADT] Routine Admission Diagnosis/Problem Admission Diagnosis/Problem 05/06/20 21:56 presenting at 39 2/7 weeks in active labor, bennett x2-3 minutes. Grossly ruptured. SVE 8 cm, soft, midposition, -1 per nurse report. O+, rubella immune, GBS negative. 05/06/20 21:57 Source of Information: Patient History Limitations: Reports: No Limitations - Related Data Allergies/Adverse Reactions: Allergies Allergy/AdvReac Type Severity Reaction Status Date / Time Iodinated Contrast Media Allergy Hives Verified 05/06/20 21:51 [Iodinated Contrast- Oral and IV Dye] Home Medications: Home Meds 147/Iron/Folic Acid [Azesco Tablet] 1 each PO DAILY 10/14/19 [History] Past Medical History HEENT History: Reports: Other (See Below) Other HEENT History: tinnitis Cardiovascular History: Reports: None Respiratory History: Reports: None Gastrointestinal History: Reports: None Genitourinary History: Reports: None [employer] LAB[employer]ER History: Reports: None Musculoskeletal History: Reports: None Neurological History: Reports: Other (See Below) Other Neuro History: sleep paralysis Psychiatric History: Reports: Anxiety Endocrine/Metabolic History: Reports: None Hematologic History: Reports: None Immunologic History: Reports: None Oncologic (Cancer) History: Reports: None Dermatologic History: Reports: None - Infectious Disease History Infectious Disease History: Reports: None - Past Surgical History Head Surgeries/Procedures: Reports: None HEENT Surgical History: Reports: None Cardiovascular Surgical History: Reports: None Respiratory Surgical History: Reports: None GI Surgical History: Reports: None Female Surgical History: Reports: None Endocrine Surgical History: Reports: None Neurological Surgical History: Reports: None Musculoskeletal Surgical History: Reports: None Oncologic Surgical History: Reports: None Dermatological Surgical History: Reports: None Social & Family History - Family History Family Medical History: Noncontributory - Caffeine Use Caffeine Use: Reports: None H&P Review of Systems - Review of Systems: Review Of Systems: See Below General: Reports: No Symptoms HEENT: Reports: No Symptoms Pulmonary: Reports: No Symptoms Cardiovascular: Reports: No Symptoms Gastrointestinal: Reports: No Symptoms Genitourinary: Reports: No Symptoms Musculoskeletal: Reports: No Symptoms Skin: Reports: No Symptoms Psychiatric: Reports: No Symptoms Neurological: Reports: No Symptoms Hematologic/Lymphatic: Reports: No Symptoms Immunologic: Reports: No Symptoms L&D Exam - Exam Exam: See Below - Vital Signs Weight: 158 lb - OB Specific Contraction Intensity: Moderate Movement: Active Heart Tones: Present Heart Rate (FHR) Variability: Moderate (6-25 bmp) - Yang Score Yang Score Cervix Position: Midposition Yang Score Consistency: Soft Yang Score Effacement: >80% Yang Score Dilation: > 5 cm Yang Score Infant's Station: -1 ,0 Yang Score Total: 11 - Exam General: Alert, Oriented, Cooperative Lungs: Normal Respiratory Effort Cardiovascular: Regular Rate, Regular Rhythm GI/Abdominal Exam: Soft, Non-Tender Rectal Exam: Deferred Genitourinary: Deferred Back Exam: Normal Inspection, Full Range of Motion Extremities: Normal Inspection, Normal Range of Motion, Non-Tender, Normal Capillary Refill Skin: Warm, Dry, Intact Psychiatric: Alert, Normal Affect, Normal Mood - Problem List (1) Supervision of normal IUP (intrauterine ) in multigravida SNOMED Code(s): 853300267, 115189103, 358185081 ICD Code: Z34.80 - ENCOUNTER FOR SUPRVSN OF NORMAL , UNSP TRIMESTER Status: Acute Priority: High Current Visit: Yes Qualifiers: Trimester: third trimester Qualified Code(s): Z34.83 - Encounter for supervision of other normal , third trimester Problem List Initiated/Reviewed/Updated: Yes Orders Last 24hrs: Active Orders 24 hr Category Date Time Status Patient Status [ADT] Routine ADT 05/06/20 21:20 Active Heart Tones [RC] CONTINUOUS Care 05/06/20 21:51 Active Non Stress Test [RC] PER UNIT ROUTINE Care 05/06/20 21:51 Active May Shower [RC] ASDIRECTED Care 05/06/20 21:51 Active Notify Provider [RC] PRN Care 05/06/20 21:51 Active Up ad Gema [RC] ASDIRECTED Care 05/06/20 21:51 Active Vaginal Exam [RC] PRN Care 05/06/20 21:51 Active Vital Signs [RC] PER UNIT ROUTINE Care 05/06/20 21:51 Active CBC W/O DIFF,HEMOGRAM [HEME] Routine Lab 05/06/20 21:51 Ordered RPR (SYPHILIS SERO) W/ RFLX [REF] Routine Lab 05/06/20 21:51 Ordered TYPE AND SCREEN [BBK] Routine Lab 05/06/20 21:51 Ordered Butorphanol [Stadol] Med 05/06/20 21:51 Ordered 1 mg IVPUSH Q1H PRN Carboprost Tromethamine [Hemabate DS] Med 05/06/20 21:51 Ordered 250 mcg IM ASDIRECTED PRN Lactated Ringers [Ringers, Lactated] 1,000 ml Med 05/06/20 22:00 Ordered IV ASDIRECTED Lidocaine 1% [Xylocaine 1%] Med 05/06/20 21:51 Ordered 50 ml INJECT ONETIME PRN Methylergonovine [Methergine] Med 05/06/20 21:51 Ordered 0.2 mg IM ASDIRECTED PRN Nalbuphine [Nubain] Med 05/06/20 21:51 Ordered 10 mg IVPUSH Q1H PRN Oxytocin/0.9 % Sodium Chloride [Oxytocin 30 Unit/500 ML Med 05/06/20 22:00 Ordered -NS] 30 unit in 500 ml IV TITRATE Sodium Chloride 0.9% [Normal Saline] Med 05/06/20 21:51 Ordered 10 ml IV ASDIRECTED PRN Sodium Chloride 0.9% [Saline Flush] Med 05/06/20 21:51 Ordered 10 ml FLUSH ASDIRECTED PRN Sodium Chloride 0.9% [Saline Flush] Med 05/06/20 21:51 Ordered 2.5 ml FLUSH ASDIRECTED PRN Tranexamic Acid [Cyklokapron] 1,000 mg Med 05/06/20 21:51 Ordered Sodium Chloride 0.9% [Normal Saline] 100 ml IV ONETIME Water For Irrigation,Sterile [Sterile Water for Med 05/06/20 21:51 Ordered Irrigation] 1,000 ml IRR ASDIRECTED PRN miSOPROStoL [Cytotec] Med 05/06/20 21:51 Ordered 200 mcg PO ONETIME PRN Scalp Electrode [WOMSER] Per Unit Routine Oth 05/06/20 21:51 Ordered Peripheral IV Insertion Adult [OM.PC] Routine Oth 05/06/20 21:51 Ordered Resuscitation Status Routine Resus Stat 05/06/20 21:51 Ordered Medication Orders Butorphanol Tartrate (Stadol) 1 mg IVPUSH Q1H PRN PRN Reason: Pain Carboprost Tromethamine (Hemabate Ds) 250 mcg IM ASDIRECTED PRN PRN Reason: Post Hemorrhage Lactated Ringer's (Ringers, Lactated) 1,000 mls @ 150 mls/hr IV ASDIRECTED MISHA Oxytocin/Sodium Chloride (Oxytocin 30 Unit/500 Ml-Ns) 30 unit in 500 mls @ 500 mls/hr IV TITRATE MISHA Tranexamic Acid 1,000 mg/ (Sodium Chloride) 110 mls @ 660 mls/hr IV ONETIME PRN PRN Reason: Bleeding Lidocaine HCl (Xylocaine 1%) 50 ml INJECT ONETIME PRN PRN Reason: Laceration repair Methylergonovine Maleate (Methergine) 0.2 mg IM ASDIRECTED PRN PRN Reason: Post Hemorrhage Misoprostol (Cytotec) 200 mcg PO ONETIME PRN PRN Reason: Post Hemorrhage Nalbuphine HCl (Nubain) 10 mg IVPUSH Q1H PRN PRN Reason: Pain (severe 7-10) Sodium Chloride (Saline Flush) 10 ml FLUSH ASDIRECTED PRN PRN Reason: Keep Vein Open Sodium Chloride (Saline Flush) 2.5 ml FLUSH ASDIRECTED PRN PRN Reason: Keep Vein Open Sodium Chloride (Normal Saline) 10 ml IV ASDIRECTED PRN PRN Reason: IV Use Sterile Water (Sterile Water For Irrigation) 1,000 ml IRR ASDIRECTED PRN PRN Reason: delivery Assessment/Plan Comment:: A: presenting at 39 2/7 weeks in active labor, bennett x2-3 minutes. SVE 8 cm, soft, midposition, -1 per nurse report. O+, rubella immune, GBS negative. P: Anticipate ; Dr. Jacobson updated.
[2020-05-06] MEDS ORDERED: Oxytocin/0.9 % Sodium Chloride 30 UNIT/500 ML BAG IV SCH (22:00)
[2020-05-06] MEDS ORDERED: Lactated Ringers 1,000 ML IV SCH (22:00)
[2020-05-06] MEDS ORDERED: Lidocaine 1% 50 ML MDV ONE (22:45)
[2020-05-07] MEDS ORDERED: Bisacodyl 10 MG Supp RECTAL PRN (00:10)
[2020-05-07] MEDS ORDERED: Lanolin 100% Cream 7 GM Tube TOP PRN (00:10)
[2020-05-07] MEDS ORDERED: Ibuprofen 400 MG Tab PO PRN (00:10)
[2020-05-07] MEDS ORDERED: Docusate Sodium 100 MG Cap PO PRN (00:10)
[2020-05-07] MEDS ORDERED: Ibuprofen 800 MG Tab PO PRN (00:10)
[2020-05-07] MEDS ORDERED: Witch Hazel Medicated Pads 40/Jar TOP PRN (00:10)
[2020-05-07] MEDS ORDERED: Acetaminophen 500 MG Tab PO PRN ×2 (00:10)
[2020-05-07] MEDS ORDERED: oxyCODONE 5 MG Tab PO PRN (00:10)
--- NOTE | 2020-05-07 00:18 | PCM.DEL ---
L & D Note - General Info Date of Service: 05/07/20 Mother's Due Date: 05/11/20 - Delivery Note Labor: Spontaneous Delivery Outcome: Livebirth Infant Delivery Method: Spontaneous Vaginal Delivery-Single Presentation: Vertex Nuchal Cord: Present, Reduced (x1) Anesthesia Type: None Amniotic Fluid Description: Clear Episiotomy Type: None Laceration: Labial (right labial laceration, not repaired) Placenta: Intact, Spontaneous Cord: 3 Vessels Resuscitation Needed: No Score 1 min: 8 Score 5 min: 9 Second Stage Interventions: Reports: Second Nurse Assessed Progress of Descent, Second Nurse Reviewed Contraction Pattern, Second Nurse Reviewed Heart Tones, Encouragement Given, Pushing Effectively Delivery Comments (Free Text/Narrative):: viable male ; head delivered with good pushing, nuchal x1, reduced easily; shoulders and body followed easily after; baby to mom's abdomen skin-to- skin for assessment, spontaneous cry; APGARs 8/9, weight pending; placenta delivered grossly intact, 3VC, EBL 250 mL; perineum intact; right labial laceration not repaired; pitocin to IVF; fundus firm; mom and baby left in stable condition with nurse at bedside for assessment - General Info Date of Service: 05/07/20 Admission Dx/Problem (Free Text): Patient Status Order with Admit Dx/Problem 05/06/20 21:20 Patient Status [ADT] Routine Admission Diagnosis/Problem Admission Diagnosis/Problem 05/06/20 21:56 presenting at 39 2/7 weeks in active labor, bennett x2-3 minutes. Grossly ruptured. SVE 8 cm, soft, midposition, -1 per nurse report. O+, rubella immune, GBS negative. 05/06/20 21:57 Functional Status: Reports: Pain Controlled - Review of Systems General: Reports: No Symptoms HEENT: Reports: No Symptoms Pulmonary: Reports: No Symptoms Cardiovascular: Reports: No Symptoms Gastrointestinal: Reports: No Symptoms Genitourinary: Reports: No Symptoms Musculoskeletal: Reports: No Symptoms Skin: Reports: No Symptoms Neurological: Reports: No Symptoms Psychiatric: Reports: No Symptoms - Patient Data Weight - Most Recent: 158 lb Lab Results Last 24 Hours: Laboratory Results - last 24 hr 05/06/20 05/06/20 Range/Units 22:05 22:05 WBC 11.16 H (4.0-11.0) K/uL RBC 3.99 L (4.30-5.90) M/uL Hgb 11.1 L (12.0-16.0) g/dL Hct 34.0 L (36.0-46.0) % MCV 85.2 (80.0-98.0) fL MCH 27.8 (27.0-32.0) pg MCHC 32.6 (31.0-37.0) g/dL RDW Std Deviation 41.1 (28.0-62.0) fl RDW Coeff of [place] 13 (11.0-15.0) % Plt Count 280 (150-400) K/uL MPV 10.00 (7.40-12.00) fL Nucleated RBC % 0.0 /100WBC Nucleated RBCs # 0 K/uL Blood Type O POSITIVE Antibody Screen NEGATIVE Med Orders - Current: Current Medications Discontinued Medications Butorphanol Tartrate (Stadol) 1 mg IVPUSH Q1H PRN PRN Reason: Pain Stop: 05/07/20 00:09 Carboprost Tromethamine (Hemabate Ds) 250 mcg IM ASDIRECTED PRN PRN Reason: Post Hemorrhage Lactated Ringer's (Ringers, Lactated) 1,000 mls @ 150 mls/hr IV ASDIRECTED [facility] Last Admin: 05/06/20 22:02 Dose: 150 mls/hr Oxytocin/Sodium Chloride (Oxytocin 30 Unit/500 Ml-Ns) 30 unit in 500 mls @ 500 mls/hr IV TITRATE [facility] Tranexamic Acid 1,000 mg/ (Sodium Chloride) 110 mls @ 660 mls/hr IV ONETIME PRN PRN Reason: Bleeding Lidocaine HCl (Xylocaine 1%) 50 ml INJECT ONETIME PRN PRN Reason: Laceration repair Lidocaine HCl (Xylocaine 1%) Confirm Administered Dose 50 ml .ROUTE .STK-MED ONE Stop: 05/06/20 22:46 Methylergonovine Maleate (Methergine) 0.2 mg IM ASDIRECTED PRN PRN Reason: Post Hemorrhage Misoprostol (Cytotec) 200 mcg PO ONETIME PRN PRN Reason: Post Hemorrhage Nalbuphine HCl (Nubain) 10 mg IVPUSH Q1H PRN PRN Reason: Pain (severe 7-10) Sodium Chloride (Saline Flush) 10 ml FLUSH ASDIRECTED PRN PRN Reason: Keep Vein Open Sodium Chloride (Saline Flush) 2.5 ml FLUSH ASDIRECTED PRN PRN Reason: Keep Vein Open Sodium Chloride (Normal Saline) 10 ml IV ASDIRECTED PRN PRN Reason: IV Use Sterile Water (Sterile Water For Irrigation) 1,000 ml IRR ASDIRECTED PRN PRN Reason: delivery - Exam General: Alert, Oriented, Cooperative, No Acute Distress Lungs: Normal Respiratory Effort Cardiovascular: Regular Rate, Regular Rhythm GI/Abdominal Exam: Soft, Non-Tender (Female) Exam: Normal External Exam (right labial laceration, not repaired) Back Exam: Normal Inspection, Full Range of Motion Extremities: Normal Inspection, Normal Range of Motion, Non-Tender, Normal Capillary Refill Skin: Warm, Dry, Intact Neurological: No New Focal Deficit, Normal Speech, Normal Tone, Sensation Intact Psy/Mental Status: Alert, Normal Affect, Normal Mood - Problem List & Annotations (1) Supervision of normal IUP (intrauterine ) in multigravida SNOMED Code(s): 337599780, 809948390, [id number] Code(s): Z34.80 - ENCOUNTER FOR SUPRVSN OF NORMAL , UNSP TRIMESTER Status: Acute Priority: High Current Visit: Yes Qualifiers: Trimester: third trimester Qualified Code(s): Z34.83 - Encounter for supervision of other normal , third trimester (2) (spontaneous vaginal delivery) SNOMED Code(s): 736650857 Code(s): O80 - ENCOUNTER FOR FULL-TERM UNCOMPLICATED DELIVERY Status: Acute Current Visit: Yes - Problem List Review Problem List Initiated/Reviewed/Updated: Yes - My Orders Last 24 Hours: My Active Orders 05/06/20 21:51 Heart Tones [RC] CONTINUOUS Non Stress Test [RC] PER UNIT ROUTINE Vaginal Exam [RC] PRN Vital Signs [RC] PER UNIT ROUTINE 05/06/20 22:05 RPR (SYPHILIS SERO) W/ RFLX [REF] Routine 05/07/20 00:10 Patient Status [ADT] Routine May Shower [RC] ASDIRECTED Up ad Gema [RC] ASDIRECTED Vital Signs [RC] PER UNIT ROUTINE Acetaminophen [Tylenol Extra Strength] 1,000 mg PO Q4H PRN Acetaminophen [Tylenol Extra Strength] 500 mg PO Q4H PRN Benzocaine/Menthol [Dermoplast Pain Relief 20%-0.5% [place]] 78 gm TOP ASDIRECTED PRN Docusate Sodium [Colace] 100 mg PO BID PRN Ibuprofen [Motrin] 400 mg PO Q4H PRN Ibuprofen [Motrin] 800 mg PO Q6H PRN Lanolin [Lansinoh HPA] See Dose Instructions TOP ASDIRECTED PRN bisacodyL [Dulcolax] 10 mg RECTAL ONETIME PRN oxyCODONE 5 mg PO Q2H PRN witch Gene [Tucks] 1 pad TOP ASDIRECTED PRN Assess Lochia [WOMSER] Per Unit Routine Assess Uterine Involution [WOMSER] Per Unit Routine Peripheral IV Discontinue [OM.PC] Routine Resuscitation Status Routine 05/08/20 05:11 HEMOGLOBIN/HEMATOCRIT,HH [HEME] Timed - Plan Plan:: Admit A: presenting at 39 2/7 weeks in active labor, bennett x2-3 minutes. SVE 8 cm, soft, midposition, -1 per nurse report. O+, rubella immune, GBS negative. P: Anticipate ; Dr. Jacobson updated. Delivery A: viable male ; nuchal x1, reduced easily; shoulders and body followed easily after; baby to mom's abdomen [id number] for assessment, spontaneous cry; APGARs 8/9, weight pending; placenta delivered grossly intact, 3VC, EBL 250 mL; perineum intact; right labial laceration not repaired; pitocin to IVF; fundus firm; mom and baby left in stable condition with nurse at bedside for assessmen P: Routine plan of care; Dr. Jacobson updated.
[2020-05-07] MEDS: Benzocaine/Menthol 20%-0.5% Spray 78 GM Cannister TOP PRN (00:27)
--- NOTE | 2020-05-08 08:50 | PCM.PNPP ---
- General Info Date of Service: 05/07/20 Admission Dx/Problem (Free Text): Patient Status Order with Admit Dx/Problem 05/06/20 21:20 Patient Status [ADT] Routine Admission Diagnosis/Problem Admission Diagnosis/Problem 05/06/20 21:56 presenting at 39 2/7 weeks in active labor, bennett x2-3 minutes. Grossly ruptured. SVE 8 cm, soft, midposition, -1 per nurse report. O+, rubella immune, GBS negative. 05/06/20 21:57 Functional Status: Reports: Pain Controlled - Review of Systems General: Reports: No Symptoms HEENT: Reports: No Symptoms Pulmonary: Reports: No Symptoms Cardiovascular: Reports: No Symptoms Gastrointestinal: Reports: No Symptoms Genitourinary: Reports: Pain (Intermittent moderate uterine cramping), Other ( rubra lochia, no clots. Uterus firm @ U) Musculoskeletal: Reports: No Symptoms Skin: Reports: No Symptoms Neurological: Reports: No Symptoms Psychiatric: Reports: No Symptoms - General Info Date of Service: 05/07/20 - Patient Data Vital Signs - Most Recent: Last Vital Signs Temp 97.7 F 05/08/20 04:55 Pulse 70 05/08/20 04:55 Resp 16 05/08/20 04:55 BP 106/60 05/08/20 04:55 Pulse Ox 98 05/08/20 04:55 Weight - Most Recent: 158 lb Lab Results - Last 24 Hours: Laboratory Results - last 24 hr 05/08/20 Range/Units 05:53 Hgb 10.4 L (12.0-16.0) g/dL Hct 32.0 L (36.0-46.0) % Med Orders - Current: Current Medications Acetaminophen (Tylenol Extra Strength) 500 mg PO Q4H PRN PRN Reason: Pain Acetaminophen (Tylenol Extra Strength) 1,000 mg PO Q4H PRN PRN Reason: Pain Benzocaine/Menthol (Dermoplast Pain Relief 20%-0.5% [place]) 78 gm TOP ASDIRECTED PRN PRN Reason: Perineal Comfort Measure Last Admin: 05/07/20 00:27 Dose: 1 canister Bisacodyl (Dulcolax) 10 mg RECTAL ONETIME PRN PRN Reason: Constipation Docusate Sodium (Colace) 100 mg PO BID PRN PRN Reason: Constipation Emollient Ointment (Lansinoh Hpa) 0 gm TOP ASDIRECTED PRN PRN Reason: Sore Nipples Last Admin: 05/07/20 08:15 Dose: 2 tube Ibuprofen (Motrin) 400 mg PO Q4H PRN PRN Reason: Pain Ibuprofen (Motrin) 800 mg PO Q6H PRN PRN Reason: Pain Oxycodone HCl (Oxycodone) 5 mg PO Q2H PRN PRN Reason: Pain Witch Ruth Ann (Tucks) 1 pad TOP ASDIRECTED PRN PRN Reason: comfort care Last Admin: 05/07/20 00:26 Dose: 1 tub Discontinued Medications Butorphanol Tartrate (Stadol) 1 mg IVPUSH Q1H PRN PRN Reason: Pain Stop: 05/07/20 00:09 Carboprost Tromethamine (Hemabate Ds) 250 mcg IM ASDIRECTED PRN PRN Reason: Post Hemorrhage Lactated Ringer's (Ringers, Lactated) 1,000 mls @ 150 mls/hr IV ASDIRECTED MISHA Last Admin: 05/06/20 22:02 Dose: 150 mls/hr Oxytocin/Sodium Chloride (Oxytocin 30 Unit/500 Ml-Ns) 30 unit in 500 mls @ 500 mls/hr IV TITRATE MISHA Tranexamic Acid 1,000 mg/ (Sodium Chloride) 110 mls @ 660 mls/hr IV ONETIME PRN PRN Reason: Bleeding Lidocaine HCl (Xylocaine 1%) 50 ml INJECT ONETIME PRN PRN Reason: Laceration repair Lidocaine HCl (Xylocaine 1%) Confirm Administered Dose 50 ml .ROUTE .[facility] Stop: 05/06/20 22:46 Methylergonovine Maleate (Methergine) 0.2 mg IM ASDIRECTED PRN PRN Reason: Post Hemorrhage Misoprostol (Cytotec) 200 mcg PO ONETIME PRN PRN Reason: Post Hemorrhage Nalbuphine HCl (Nubain) 10 mg IVPUSH Q1H PRN PRN Reason: Pain (severe 7-10) Sodium Chloride (Saline Flush) 10 ml FLUSH ASDIRECTED PRN PRN Reason: Keep Vein Open Sodium Chloride (Saline Flush) 2.5 ml FLUSH ASDIRECTED PRN PRN Reason: Keep Vein Open Sodium Chloride (Normal Saline) 10 ml IV ASDIRECTED PRN PRN Reason: IV Use Sterile Water (Sterile Water For Irrigation) 1,000 ml IRR ASDIRECTED PRN PRN Reason: delivery - Infant Interaction Disposition, : in Room with Family Infant Interaction: Other (see below) ([place] in bassinet at bedside) Infant Feeding: Breastfed ; Nursed Well, Continues to Breastfeed, Encouraged to Breastfeed Support Person: - Recovery Exam Fundal Tone: Firm Fundal Level: At Umbilicus Fundal Placement: Midline Lochia Amount: Small, Moderate Lochia Color: Rubra/Red Perineum Description: Intact, Minimal Bruising/Swelling Episiotomy/Laceration: None Bladder Status: Voiding Urinary Elimination: Voided - Exam General: Alert, Oriented, Cooperative, No Acute Distress HEENT: Pupils Equal, Pupils Reactive, Mucous Membr. Moist/[place] Neck: Supple Lungs: Clear to Auscultation, Normal Respiratory Effort Cardiovascular: Regular Rate, Regular Rhythm GI/Abdominal Exam: Normal Bowel Sounds, Soft, Non-Tender, No Organomegaly Extremities: Normal Inspection, Normal Range of Motion, Non-Tender, No Pedal Edema, Normal Capillary Refill Skin: Warm, Dry, Intact Wound/Incisions: Healing Well Neurological: No New Focal Deficit Psy/Mental Status: Alert, Normal Affect, Normal Mood - Problem List & Annotations (1) (spontaneous vaginal delivery) SNOMED Code(s): 540369811 Code(s): O80 - ENCOUNTER FOR FULL-TERM UNCOMPLICATED DELIVERY Status: Acute Priority: High Current Visit: Yes (2) Lactating mother SNOMED Code(s): 108319015, 514171187 Code(s): Z39.1 - ENCOUNTER FOR CARE AND EXAMINATION OF LACTATING MOTHER Status: Acute Priority: High Current Visit: Yes - Problem List Review Problem List Initiated/Reviewed/Updated: Yes - Plan Plan:: Priya is a 29 yo PPD0 S/P uncomplicated to term NBF, seen 05/07/2020. O pos, RI, GBS negative. Hemodynamically stable, afebrile. Patient is exclusively well, resting comfortably in bed with in bassinet at the bedside. Patient reports she is eating, voiding, ambulating independently and without difficulty. Patient denies any problems or concerns at this time except moderate intermittent uterine cramping relieved with Tylenol and Ibuprofen. Patient reports moderate rubra lochia with no clots. Continue vaginal plan of care, plan to D/C home in the AM.
--- NOTE | 2020-05-08 08:55 | PCM.DCSUM1 ---
Discharge Summary - Hospital Course Free Text/Narrative:: Priya is a 32 yo PPD1 S/P uncomplicated to term NBM. O pos, RI, GBS negative. Patient is exclusively well, resting comfortably in bed with sleeping quietly in the bassinet. Patient reports she is eating, voiding, ambulating independently and without difficulty. Patient denies any problems or concerns at this time except mild-moderate intermittent uterine cramping, no pain medication necessary for management. Patient reports small rubra lochia with passage of one small clot upon first void after waking, no more clots since then. Patient verbalizes her readiness to be discharged home. Diagnosis: Stroke: No - Discharge Data Discharge Date: 05/08/20 Discharge Disposition: Home, Self-Care 01 Condition: Good - Referral to Home Health Primary Care Physician: PCP None - Discharge Diagnosis/Problem(s) (1) (spontaneous vaginal delivery) SNOMED Code(s): 169697821 ICD Code: O80 - ENCOUNTER FOR FULL-TERM UNCOMPLICATED DELIVERY Status: Acute Priority: High Current Visit: Yes (2) Lactating mother SNOMED Code(s): 093807828, [id number] ICD Code: Z39.1 - ENCOUNTER FOR CARE AND EXAMINATION OF LACTATING MOTHER Status: Acute Priority: High Current Visit: Yes - Patient Instructions Diet: Usual Diet as Tolerated, Regular Diet as Tolerated, Drink 8-10+ Glasses/ Day Activity: As Tolerated, Rest and Relax Today Driving: May Drive Today Showering/Bathing: May Shower Showering/Bathing, Other: May utilize sitz baths for comfort of the perineum Notify Provider of: Fever, Increased Pain, Swelling and Redness, Drainage, Nausea and/or Vomiting - Discharge Plan *PRESCRIPTION DRUG MONITORING PROGRAM REVIEWED*: No *COPY OF PRESCRIPTION DRUG MONITORING REPORT IN PATIENT HEENA: No Home Medications: Home Meds 147/Iron/Folic Acid [Azesco Tablet] 1 each PO DAILY 10/14/19 [History] Acetaminophen [Tylenol Extra Strength] 1,000 mg PO Q4H PRN tablet 05/08/20 [Rx] Ibuprofen [Motrin] 800 mg PO Q6H PRN tablet 05/08/20 [Rx] Oxygen Therapy Mode: Room Air Referrals: [facility] [Outside] Consuelo Man CNM [Mid-] - 06/18/20 1:30 pm (For 6 week follow-up) - Discharge Summary/Plan Comment DC Time >30 min.: Yes Discharge Summary/Plan Comment: Priya is a 32 yo PPD1 S/P uncomplicated to term NBM. O pos, RI, GBS negative. Hemodynamically stable, afebrile. Patient is exclusively well, resting comfortably in bed with sleeping quietly in the bassinet. Patient reports she is eating, voiding, ambulating independently and without difficulty. Patient denies any problems or concerns at this time except mild-moderate intermittent uterine cramping, no pain medication necessary for management, plans to take OTC ibuprofen and acetaminophen as needed, does not desires prescription at this time. Patient reports small rubra lochia with passage of one small clot upon first void after waking, no more clots since then. Patient verbalizes her readiness to be discharged home. OK to D/C home today. See discharge plan and new orders. - General Info Date of Service: 05/08/20 Admission Dx/Problem (Free Text: Patient Status Order with Admit Dx/Problem 05/06/20 21:20 Patient Status [ADT] Routine Admission Diagnosis/Problem Admission Diagnosis/Problem 05/06/20 21:56 presenting at 39 2/7 weeks in active labor, bennett x2-3 minutes. Grossly ruptured. SVE 8 cm, soft, midposition, -1 per nurse report. O+, rubella immune, GBS negative. 05/06/20 21:57 Functional Status: Reports: Pain Controlled - Review of Systems General: Reports: No Symptoms HEENT: Reports: No Symptoms Pulmonary: Reports: No Symptoms Cardiovascular: Reports: No Symptoms Gastrointestinal: Reports: No Symptoms Genitourinary: Reports: Pain (Intermittent mild to moderate uterine cramping), Other (Small rubra lochia, no clots currently.) Musculoskeletal: Reports: No Symptoms Skin: Reports: No Symptoms Neurological: Reports: No Symptoms Psychiatric: Reports: No Symptoms - Patient Data Vitals - Most Recent: Last Vital Signs Temp 97.7 F 05/08/20 04:55 Pulse 70 05/08/20 04:55 Resp 16 05/08/20 04:55 BP 106/60 05/08/20 04:55 Pulse Ox 98 05/08/20 04:55 Weight - Most Recent: 158 lb Lab Results - Last 24 hrs: Laboratory Results - last 24 hr 05/08/20 Range/Units 05:53 Hgb 10.4 L (12.0-16.0) g/dL Hct 32.0 L (36.0-46.0) % Med Orders - Current: Current Medications Acetaminophen (Tylenol Extra Strength) 500 mg PO Q4H PRN PRN Reason: Pain Acetaminophen (Tylenol Extra Strength) 1,000 mg PO Q4H PRN PRN Reason: Pain Benzocaine/Menthol (Dermoplast Pain Relief 20%-0.5% [place]) 78 gm TOP ASDIRECTED PRN PRN Reason: Perineal Comfort Measure Last Admin: 05/07/20 00:27 Dose: 1 canister Bisacodyl (Dulcolax) 10 mg RECTAL ONETIME PRN PRN Reason: Constipation Docusate Sodium (Colace) 100 mg PO BID PRN PRN Reason: Constipation Emollient Ointment (Lansinoh Hpa) 0 gm TOP ASDIRECTED PRN PRN Reason: Sore Nipples Last Admin: 05/07/20 08:15 Dose: 2 tube Ibuprofen (Motrin) 400 mg PO Q4H PRN PRN Reason: Pain Ibuprofen (Motrin) 800 mg PO Q6H PRN PRN Reason: Pain Oxycodone HCl (Oxycodone) 5 mg PO Q2H PRN PRN Reason: Pain Witch Ruth Ann (Tucks) 1 pad TOP ASDIRECTED PRN PRN Reason: comfort care Last Admin: 05/07/20 00:26 Dose: 1 tub Discontinued Medications Butorphanol Tartrate (Stadol) 1 mg IVPUSH Q1H PRN PRN Reason: Pain Stop: 05/07/20 00:09 Carboprost Tromethamine (Hemabate Ds) 250 mcg IM ASDIRECTED PRN PRN Reason: Post Hemorrhage Lactated Ringer's (Ringers, Lactated) 1,000 mls @ 150 mls/hr IV ASDIRECTED MISHA Last Admin: 05/06/20 22:02 Dose: 150 mls/hr Oxytocin/Sodium Chloride (Oxytocin 30 Unit/500 Ml-Ns) 30 unit in 500 mls @ 500 mls/hr IV TITRATE MISHA Tranexamic Acid 1,000 mg/ (Sodium Chloride) 110 mls @ 660 mls/hr IV ONETIME PRN PRN Reason: Bleeding Lidocaine HCl (Xylocaine 1%) 50 ml INJECT ONETIME PRN PRN Reason: Laceration repair Lidocaine HCl (Xylocaine 1%) Confirm Administered Dose 50 ml .ROUTE .[facility] ONE Stop: 05/06/20 22:46 Methylergonovine Maleate (Methergine) 0.2 mg IM ASDIRECTED PRN PRN Reason: Post Hemorrhage Misoprostol (Cytotec) 200 mcg PO ONETIME PRN PRN Reason: Post Hemorrhage Nalbuphine HCl (Nubain) 10 mg IVPUSH Q1H PRN PRN Reason: Pain (severe 7-10) Sodium Chloride (Saline Flush) 10 ml FLUSH ASDIRECTED PRN PRN Reason: Keep Vein Open Sodium Chloride (Saline Flush) 2.5 ml FLUSH ASDIRECTED PRN PRN Reason: Keep Vein Open Sodium Chloride (Normal Saline) 10 ml IV ASDIRECTED PRN PRN Reason: IV Use Sterile Water (Sterile Water For Irrigation) 1,000 ml IRR ASDIRECTED PRN PRN Reason: delivery - Exam General: Reports: Alert, Oriented, Cooperative, No Acute Distress HEENT: Reports: Pupils Equal, Pupils Reactive, Mucous Membr. Moist/[place] Neck: Reports: Supple Lungs: Reports: Clear to Auscultation, Normal Respiratory Effort Cardiovascular: Reports: Regular Rate, Regular Rhythm GI/Abdominal Exam: Normal Bowel Sounds, Soft, Non-Tender, No Organomegaly, No Distention (Female) Exam: Normal External Exam, Enlarged Uterus ( uterus, firm @ U), Vaginal Bleeding (Scant rubra lochia, no clots) Rectal (Female) Exam: Deferred Back Exam: Reports: Normal Inspection, Full Range of Motion Extremities: Normal Inspection, Normal Range of Motion, Non-Tender, No Pedal Edema, Normal Capillary Refill Skin: Reports: Warm, Dry, Intact Neurological: Reports: No New Focal Deficit Psy/Mental Status: Reports: Alert, Normal Affect, Normal Mood
[2020-05-08] MEDS: Benzocaine/Menthol 20%-0.5% Spray 78 GM Cannister TOP PRN (13:29)
== END 2020-05-08 13:35 | disposition home or self-care (01) | DRG 560 ==
LOC: MW.OBCHECK 21:42 → MW.OB 21:46 → MW.OBCHECK 21:51 → MW.OB 21:51 → OBSVTOIN 05-07 00:10 → MW.OB 05-07 02:48
PROVIDERS: ADMIT Obstetrics & Gynecology; ATTEND Obstetrics & Gynecology
PROC: 10E0XZZ Delivery of Products of Conception, External Approach (ICD-10-PCS; principal; 2020-05-07)
DX: O69.81X0 Labor and delivery complicated by cord around neck, without compression, not applicable or unspecified (principal); Z3A.39 39 weeks gestation of pregnancy; Z37.0 Single live birth
CPT/HCPCS: 36415; 59025; 59409; 85014; 85018; 85027; 86592; 86593; 86850; 86900; 86901; A9270-GY; J7120

== ENCOUNTER 2020-06-18 22:46 | Emergency (ER) | payer BC ==
[2020-06-18] MEDS ORDERED: Sodium Chloride 0.9% 2.5 ML Syringe FLUSH PRN (23:15)
[2020-06-18] MEDS ORDERED: Sodium Chloride 0.9% 10 ML Syringe FLUSH PRN (23:15)
[2020-06-18] MEDS ORDERED: Metoprolol Tartrate 5 MG/5 ML SDV IVPUSH ONE (23:17)
--- NOTE | 2020-06-18 23:46 | EDM.PDOC ---
ED HPI GENERAL MEDICAL PROBLEM - General Chief Complaint: Cardiovascular Problem Stated Complaint: SPOKE WITH NURSE/anxiety Time Seen by Provider: 06/18/20 23:03 - History of Present Illness INITIAL COMMENTS - FREE TEXT/NARRATIVE: History of present illness: [] Patient presents with concerns for palpitations and a fast heart rate. She states that she has had this in the past with multiple palpitations had undergone Holter monitoring but had not been diagnosed with any sort of dysrhythmia. She has been told that this is anxiety related. She denies having any recent energy drinks supplements or caffeine several days ago when she had drank some caffeine she did have an increase in her PVCs but she stopped because of this. Today she felt her heart do what she calls a flip-flop and then had a sustained fast heart rate which made her uncomfortable she denies any chest pain no shortness of breath there is been no fever or chills no leg pain or leg swelling nothing seems to make this better or worse. Review of systems: As per history of present illness and below otherwise all systems reviewed and negative. Past medical history: As per history of present illness and as reviewed below otherwise noncontributory. Surgical history: As per history of present illness and as reviewed below otherwise noncontributory. Social history: No reported history of drug or alcohol abuse. Family history: As per history of present illness and as reviewed below otherwise noncontributory. Physical exam: HEENT: Atraumatic, normocephalic, pupils reactive, negative for conjunctival pallor or scleral icterus, mucous membranes moist, throat clear, neck supple, nontender, trachea midline. Lungs: Clear to auscultation, breath sounds equal bilaterally, chest nontender. Heart: S1S2, regular, negative for clicks, rubs, or JVD. Tachycardic in the 140s. Abdomen: Soft, nondistended, nontender. Negative for masses or hepatosplenomegaly. Negative for costovertebral tenderness. Pelvis: Stable nontender. Genitourinary: Deferred. Rectal: Deferred. Extremities: Atraumatic, negative for cords or calf pain. Neurovascular unremarkable. Neuro: Awake, alert, oriented. Cranial nerves II through XII unremarkable. Cerebellum unremarkable. Motor and sensory unremarkable throughout. Exam nonfocal. Psych: She is anxious and squirming in her chair Diagnostics: [] Therapeutics: [] Impression: Sinus tachycardia versus atrial fibrillation with RVR [] Plan: EKG cardiac work-up metoprolol reassess the patient. [] Definitive disposition and diagnosis as appropriate pending reevaluation and review of above. - Related Data Allergies Allergy/AdvReac Type Severity Reaction Status Date / Time Iodinated Contrast Media Allergy Hives Verified 06/18/20 23:07 [Iodinated Contrast- Oral and IV Dye] Home Meds: Home Meds 147/Iron/Folic Acid [Azesco Tablet] 1 each PO DAILY 10/14/19 [History] Acetaminophen [Tylenol Extra Strength] 1,000 mg PO Q4H PRN tablet 05/08/20 [Rx] Ibuprofen [Motrin] 800 mg PO Q6H PRN tablet 05/08/20 [Rx] levonorgestreL [Mirena] 1 insert VAG ASDIRECTED 06/18/20 [History] Propranolol HCl [Propranolol HCl ER] 120 mg PO DAILY #30 cap.sa.24h 06/19/20 [Rx] Past Medical History - Past Health History Medical/Surgical History: Denies Medical/Surgical History HEENT History: Reports: Other (See Below) Other HEENT History: tinnitis Cardiovascular History: Reports: None Respiratory History: Reports: None Gastrointestinal History: Reports: None Genitourinary History: Reports: None CAN CAPPER History: Reports: None Musculoskeletal History: Reports: None Neurological History: Reports: Other (See Below) Other Neuro History: sleep paralysis Psychiatric History: Reports: Anxiety Endocrine/Metabolic History: Reports: None Hematologic History: Reports: None Immunologic History: Reports: None Oncologic (Cancer) History: Reports: None Dermatologic History: Reports: None - Infectious Disease History Infectious Disease History: Reports: None - Past Surgical History Head Surgeries/Procedures: Reports: None HEENT Surgical History: Reports: None Cardiovascular Surgical History: Reports: None Respiratory Surgical History: Reports: None GI Surgical History: Reports: None Female Surgical History: Reports: None Endocrine Surgical History: Reports: None Neurological Surgical History: Reports: None Musculoskeletal Surgical History: Reports: None Oncologic Surgical History: Reports: None Dermatological Surgical History: Reports: None Social & Family History - Family History Family Medical History: Noncontributory - Caffeine Use Caffeine Use: Reports: None ED ROS GENERAL - Review of Systems Review Of Systems: See Below ED EXAM, GENERAL - Physical Exam Exam: See Below Course - Vital Signs Text/Narrative:: One-view portable chest read and interpreted by me no acute cardiopulmonary pathology is evident. Patient responded well to metoprolol there is no major abnormalities on her labs she has a normal TSH we will discharge her home on propranolol and have her follow-up with cardiology. Last Recorded V/S: Last Vital Signs Temp 35.8 C L 06/18/20 23:01 Pulse 86 06/18/20 23:51 Resp 16 06/18/20 23:51 BP 134/72 06/18/20 23:51 Pulse Ox 100 06/18/20 23:51 - Orders/Labs/Meds Orders: Active Orders 24 hr Category Date Time Status EKG 12 Lead [EKG Documentation Completion] [RC] STAT Care 06/18/20 22:54 Active Potassium Chloride Med 06/19/20 00:31 Once 40 meq PO ONETIME ONE Sodium Chloride 0.9% [Saline Flush] Med 06/18/20 23:15 Active 10 ml FLUSH ASDIRECTED PRN Sodium Chloride 0.9% [Saline Flush] Med 06/18/20 23:15 Active 2.5 ml FLUSH ASDIRECTED PRN Saline Lock Insert [OM.PC] Stat Oth 06/18/20 23:15 Ordered Medication Orders Sodium Chloride (Saline Flush) 10 ml FLUSH ASDIRECTED PRN PRN Reason: Keep Vein Open Sodium Chloride (Saline Flush) 2.5 ml FLUSH ASDIRECTED PRN PRN Reason: Keep Vein Open Labs: Laboratory Tests 06/18/20 06/18/20 06/18/20 Range/Units 23:20 23:20 23:38 WBC 9.12 (4.0-11.0) K/uL RBC 4.27 L (4.30-5.90) M/uL Hgb 11.6 L (12.0-16.0) g/dL Hct 35.9 L (36.0-46.0) % MCV 84.1 (80.0-98.0) fL MCH 27.2 (27.0-32.0) pg MCHC 32.3 (31.0-37.0) g/dL RDW Std Deviation 40.2 (28.0-62.0) fl RDW Coeff of [place] 13 (11.0-15.0) % Plt Count 310 (150-400) K/uL MPV 9.00 (7.40-12.00) fL Neut % (Auto) 58.7 (48.0-80.0) % Lymph % (Auto) 30.5 (16.0-40.0) % [place] % (Auto) 5.3 (0.0-15.0) % Eos % (Auto) 5.3 (0.0-7.0) % Baso % (Auto) 0.2 (0.0-1.5) % Neut # (Auto) 5.4 (1.4-5.7) K/uL Lymph # (Auto) 2.8 H (0.6-2.4) K/uL [place] # (Auto) 0.5 (0.0-0.8) K/uL Eos # (Auto) 0.5 (0.0-0.7) K/uL Baso # (Auto) 0.0 (0.0-0.1) K/uL Nucleated RBC % 0.0 /100WBC Nucleated RBCs # 0 K/uL Sodium (136-145) mmol/L Potassium (3.5-5.1) mmol/L Chloride (98-107) mmol/L Carbon Dioxide (21.0-32.0) mmol/L BUN (7.0-18.0) mg/dL Creatinine (0.6-1.0) mg/dL Est Cr Clr Drug Dosing mL/min Estimated GFR (MDRD) ml/min Glucose (74-106) mg/dL Calcium (8.5-10.1) mg/dL Total Bilirubin (0.2-1.0) mg/dL AST (15-37) IU/L ALT (14-63) IU/L Alkaline Phosphatase (46-116) U/L Troponin I (0.000-0.056) ng/mL Total Protein (6.4-8.2) g/dL Albumin (3.4-5.0) g/dL Globulin (2.6-4.0) g/dL Albumin/Globulin Ratio (0.9-1.6) TSH 3rd Generation (0.36-3.74) uIU/mL Urine HCG, Qual NEGATIVE (NEGATIVE) Urine Opiates Screen NEGATIVE (NEGATIVE) Ur Oxycodone Screen NEGATIVE (NEGATIVE) Urine Methadone Screen NEGATIVE (NEGATIVE) Ur Barbiturates Screen NEGATIVE (NEGATIVE) Ur Phencyclidine Scrn NEGATIVE (NEGATIVE) Ur Amphetamine Screen NEGATIVE (NEGATIVE) U Methamphetamines Scrn NEGATIVE (NEGATIVE) U Benzodiazepines Scrn NEGATIVE (NEGATIVE) U Cocaine Metab Screen NEGATIVE (NEGATIVE) U Marijuana (THC) Screen NEGATIVE (NEGATIVE) 06/18/20 Range/Units 23:38 WBC (4.0-11.0) K/uL RBC (4.30-5.90) M/uL Hgb (12.0-16.0) g/dL Hct (36.0-46.0) % MCV (80.0-98.0) fL MCH (27.0-32.0) pg MCHC (31.0-37.0) g/dL RDW Std Deviation (28.0-62.0) fl RDW Coeff of [place] (11.0-15.0) % Plt Count (150-400) K/uL MPV (7.40-12.00) fL Neut % (Auto) (48.0-80.0) % Lymph % (Auto) (16.0-40.0) % [place] % (Auto) (0.0-15.0) % Eos % (Auto) (0.0-7.0) % Baso % (Auto) (0.0-1.5) % Neut # (Auto) (1.4-5.7) K/uL Lymph # (Auto) (0.6-2.4) K/uL [place] # (Auto) (0.0-0.8) K/uL Eos # (Auto) (0.0-0.7) K/uL Baso # (Auto) (0.0-0.1) K/uL Nucleated RBC % /100WBC Nucleated RBCs # K/uL Sodium 138 (136-145) mmol/L Potassium 3.2 L (3.5-5.1) mmol/L Chloride 102 (98-107) mmol/L Carbon Dioxide 26.5 (21.0-32.0) mmol/L BUN 16 (7.0-18.0) mg/dL Creatinine 1.0 (0.6-1.0) mg/dL Est Cr Clr Drug Dosing 69.90 mL/min Estimated GFR (MDRD) > 60.0 ml/min Glucose 126 H (74-106) mg/dL Calcium 8.2 L (8.5-10.1) mg/dL Total Bilirubin 0.2 (0.2-1.0) mg/dL AST 16 (15-37) IU/L ALT 18 (14-63) IU/L Alkaline Phosphatase 125 H (46-116) U/L Troponin I < 0.050 (0.000-0.056) ng/mL Total Protein 7.4 (6.4-8.2) g/dL Albumin 3.7 (3.4-5.0) g/dL Globulin 3.7 (2.6-4.0) g/dL Albumin/Globulin Ratio 1.0 (0.9-1.6) TSH 3rd Generation 4.04 H (0.36-3.74) uIU/mL Urine HCG, Qual (NEGATIVE) Urine Opiates Screen (NEGATIVE) Ur Oxycodone Screen (NEGATIVE) Urine Methadone Screen (NEGATIVE) Ur Barbiturates Screen (NEGATIVE) Ur Phencyclidine Scrn (NEGATIVE) Ur Amphetamine Screen (NEGATIVE) U Methamphetamines Scrn (NEGATIVE) U Benzodiazepines Scrn (NEGATIVE) U Cocaine Metab Screen (NEGATIVE) U Marijuana (THC) Screen (NEGATIVE) Meds: Medications Generic Name Dose Route Start Last Admin Trade Name Freq PRN Reason Stop Dose Admin Sodium Chloride 10 ml 06/18/20 23:15 Saline Flush FLUSH ASDIRECTED PRN Keep Vein Open Sodium Chloride 2.5 ml 06/18/20 23:15 Saline Flush FLUSH ASDIRECTED PRN Keep Vein Open Discontinued Medications Generic Name Dose Route Start Last Admin Trade Name Freq PRN Reason Stop Dose Admin Metoprolol Tartrate 5 mg 06/18/20 23:17 06/18/20 23:35 Lopressor IVPUSH 06/18/20 23:18 5 mg ONETIME ONE Administration Departure - Departure Time of Disposition: 00:32 Disposition: Home, Self-Care 01 Condition: Good Clinical Impression: Palpitations, Tachycardia Instructions: Sinus Tachycardia, Palpitations, [id number] Referrals: PCP,None [Primary Care Provider] - Vickie Gage MD [Physician] - Forms: ED Department Discharge Additional Instructions: The following information is given to patients seen in the emergency department who are being discharged to home. This information is to outline your options for follow-up care. We provide all patients seen in our emergency department with a follow-up referral. The need for follow-up, as well as the timing and circumstances, are variable depending upon the specifics of your emergency department visit. If you don't have a primary care physician on staff, we will provide you with a referral. We always advise you to contact your personal physician following an emergency department visit to inform them of the circumstance of the visit and for follow-up with them and/or the need for any referrals to a consulting specialist. The emergency department will also refer you to a specialist when appropriate. This referral assures that you have the opportunity for follow-up care with a specialist. All of these measure are taken in an effort to provide you with optimal care, which includes your follow-up. Under all circumstances we always encourage you to contact your private physician who remains a resource for coordinating your care. When calling for follow-up care, please make the office aware that this follow-up is from your recent emergency room visit. If for any reason you are refused follow-up, please contact the [facility] Emergency Department at and asked to speak to the emergency department charge nurse. [facility] [address] [place] [address] [address] Sepsis Event Note (ED) - Evaluation Sepsis Screening Result: No Definite Risk - Focused Exam Vital Signs: Vital Signs Temp Pulse Pulse Resp BP BP Pulse Ox 06/18/20 23:51 86 16 134/72 100 06/18/20 23:35 138 H 134/84 06/18/20 23:01 35.8 C L 162 H 21 H 138/77 100 - My Orders Last 24 Hours: My Active Orders 06/18/20 22:54 EKG 12 Lead [EKG Documentation Completion] [RC] STAT 06/18/20 23:15 Sodium Chloride 0.9% [Saline Flush] 10 ml FLUSH ASDIRECTED PRN Sodium Chloride 0.9% [Saline Flush] 2.5 ml FLUSH ASDIRECTED PRN Saline Lock Insert [OM.PC] Stat 06/19/20 00:31 Potassium Chloride 40 meq PO ONETIME ONE - Assessment/Plan Last 24 Hours: My Active Orders 06/18/20 22:54 EKG 12 Lead [EKG Documentation Completion] [RC] STAT 06/18/20 23:15 Sodium Chloride 0.9% [Saline Flush] 10 ml FLUSH ASDIRECTED PRN Sodium Chloride 0.9% [Saline Flush] 2.5 ml FLUSH ASDIRECTED PRN Saline Lock Insert [OM.PC] Stat 06/19/20 00:31 Potassium Chloride 40 meq PO ONETIME ONE
--- NOTE | 2020-06-18 23:57 | CR ---
INDICATION: Tachycardia COMPARISON: None available. FINDINGS: An erect single view of the chest was obtained at 2340 hours. The lungs are clear. No focal or diffuse infiltrates are present. The heart is normal in size. The mediastinum is normal in appearance. The osseous structures are normal in appearance for the patient`s age. IMPRESSION: Normal chest single view. Dictated by Allen Montana MD @ Jun 18 2020 11:53PM Signed by Dr. Allen Montana @ Jun 18 2020 11:56PM
[2020-06-19 00:14] LABS: BLOOD UREA NITROGEN,BUN 16 mg/dL (7.0-18.0); CARBON DIOXIDE,CO2 26.5 mmol/L (21.0-32.0); CHLORIDE,CL 102 mmol/L (98-107); GLUCOSE RANDOM 126 mg/dL (74-106); POTASSIUM,K 3.2 mmol/L (3.5-5.1); SODIUM,NA 138 mmol/L (136-145)
[2020-06-19] MEDS ORDERED: Potassium Chloride 10% 20 MEQ/15 ML Soln 30 ML UD Cup PO ONE (00:31)
== END 2020-06-19 00:52 | disposition home or self-care (01) ==
LOC: MW.ED 22:46
DX: R00.2 Palpitations (principal); R00.0 Tachycardia, unspecified; Z91.041 Radiographic dye allergy status; Z79.899 Other long term (current) drug therapy
CPT/HCPCS: 36415; 71045; 80053; 80305; 81025; 84443; 84484; 85025; 93005; 96374; 99285; A9270; J3490; 99284

== ENCOUNTER 2020-06-20 13:08 | Emergency (ER) | payer BC ==
--- NOTE | 2020-06-20 13:43 | EDM.PDOC ---
ED HPI GENERAL MEDICAL PROBLEM - General Chief Complaint: Medication Administration Time Seen by Provider: 06/20/20 13:26 Source of Information: Reports: Patient History Limitations: Reports: No Limitations - History of Present Illness INITIAL COMMENTS - FREE TEXT/NARRATIVE: HISTORY AND PHYSICAL: History of present illness: Patient is a 29-year-old female who presents to the emergency room requesting a djustment of her new medication. She states 2 days ago she was started on propranolol for tachycardia. She was seen in our emergency room for SVT and her primary care provider had placed a ZIO patch and started her on propranolol ER 120 mg daily. She states she is "very sensitive to medication" and since starting the propranolol yesterday she feels slightly dizzy and "drunk". She is requesting to have this medication decreased until she can get a hold of the phonograph cartridge assembler/primary care provider as she was directed. Patient denies any fever, chills, headache, change in vision, syncope or near syncope. Denies any chest pain, back pain, shortness of breath or cough. Denies any abdominal pain, nausea, vomiting, diarrhea, constipation or dysuria. Has not noted any blood in urine or stool. Patient has been eating and drinking appropriately. Review of systems: As per history of present illness and below otherwise all systems reviewed and negative. Past medical history: As per history of present illness and as reviewed below otherwise noncontributory. Surgical history: As per history of present illness and as reviewed below otherwise noncontributory. Social history: See social history for further information Family history: As per history of present illness and as reviewed below otherwise noncontributory. Physical exam: General: Well-developed and well-nourished 29-year-old female. Alert and oriented. Nontoxic-appearing and in no acute distress. All signs are stable and have been reviewed by me. HEENT: Atraumatic, normocephalic, pupils equal and reactive bilaterally, negative for conjunctival pallor or scleral icterus, mucous membranes moist, TMs normal bilaterally, throat clear, neck supple, nontender, trachea midline. No drooling or trismus noted. No meningeal signs. No hot potato voice noted. Lungs: Clear to auscultation, breath sounds equal bilaterally, chest nontender. Heart: S1S2, regular rate and rhythm without overt murmur Abdomen: Soft, nondistended, nontender. Negative for masses or costovertebral tenderness. Skin: Intact, warm, dry. No lesions or rashes noted. Extremities: Atraumatic, moves all extremities per self without difficulty or deficits, negative for cords or calf pain. Neurovascular unremarkable. Neuro: Awake, alert, oriented. Cranial nerves II through XII unremarkable. Cerebellum unremarkable. Motor and sensory unremarkable throughout. Exam nonfocal. Notes: My physical exam is within normal limits. She states that she has been monitoring her heart rate at home and it has been normal. She has a difficult time describing the "drunk feeling" but believes it is to the high dose of propranolol. She states she did talk with the pharmacist who recommended she lower her dose. I did talk with patient about doing lab work today, she declined stating that she just had lab work done a few days ago. We discussed the need for close follow-up with her primary care provider and phonograph cartridge assembler regarding the medication change. Also reviewed signs and symptoms that would prompt her to return to the emergency room. Supportive care measures were reviewed and discussed. Voices understanding and is agreeable to plan of care. Denies any further questions or concerns at this time. Diagnostics: Declines Therapeutics: None Prescription: Propranolol 80 mg extended release daily Impression: Medication adverse effects Plan: 1. Please talk to your phonograph cartridge assembler on Monday about your concerns with the medication you been prescribed. I will prescribe you a limited amount of propranolol, please take as directed. 2. As we discussed, if you should have worsening symptoms or new symptoms that develop please return to the emergency room for evaluation. 3. Follow-up with your PUMP MACHINE OPERATOR as we discussed. Definitive disposition and diagnosis as appropriate pending reevaluation and review of above. - Related Data Allergies Allergy/AdvReac Type Severity Reaction Status Date / Time Iodinated Contrast Media Allergy Hives Verified 06/20/20 13:25 [Iodinated Contrast- Oral and IV Dye] Home Meds: Home Meds Propranolol HCl [Propranolol HCl ER] 120 mg PO DAILY #30 cap.sa.24h 06/19/20 [Rx] Propranolol [Inderal] 40 mg PO BID 15 Days #30 tab 06/20/20 [Rx] Past Medical History - Past Health History Medical/Surgical History: Denies Medical/Surgical History HEENT History: Reports: Other (See Below) Other HEENT History: tinnitis Cardiovascular History: Reports: Hypertension Other Cardiovascular History: Wearing heart monitor beginning 06/19 Respiratory History: Reports: None Gastrointestinal History: Reports: None Genitourinary History: Reports: None PUMP MACHINE OPERATOR History: Reports: None Musculoskeletal History: Reports: None Neurological History: Reports: Other (See Below) Other Neuro History: sleep paralysis Psychiatric History: Reports: Anxiety Endocrine/Metabolic History: Reports: None Hematologic History: Reports: None Immunologic History: Reports: None Oncologic (Cancer) History: Reports: None Dermatologic History: Reports: None - Infectious Disease History Infectious Disease History: Reports: None - Past Surgical History Head Surgeries/Procedures: Reports: None HEENT Surgical History: Reports: None Cardiovascular Surgical History: Reports: None Respiratory Surgical History: Reports: None GI Surgical History: Reports: None Female Surgical History: Reports: None Endocrine Surgical History: Reports: None Neurological Surgical History: Reports: None Musculoskeletal Surgical History: Reports: None Oncologic Surgical History: Reports: None Dermatological Surgical History: Reports: None Social & Family History - Family History Family Medical History: Noncontributory - Tobacco Use Smoking Status *Q: Never Smoker - Caffeine Use Caffeine Use: Reports: None - Recreational Drug Use Recreational Drug Use: No ED ROS GENERAL - Review of Systems Review Of Systems: Comprehensive ROS is negative, except as noted in HPI. ED EXAM, GENERAL - Physical Exam Exam: See Below (See dictation) Course - Vital Signs Last Recorded V/S: Last Vital Signs Temp 97.6 F 06/20/20 13:25 Pulse 70 06/20/20 13:25 Resp 18 06/20/20 13:25 BP 133/86 06/20/20 13:25 Pulse Ox 98 06/20/20 13:25 Departure - Departure Time of Disposition: 13:42 Disposition: Home, Self-Care 01 Clinical Impression: Medication adverse effect Qualifiers: Encounter type: initial encounter Qualified Code(s): T50.905A - Adverse effect of unspecified drugs, medicaments and biological substances, initial encounter - Discharge Information Prescriptions: Propranolol [Inderal] 40 mg PO BID 15 Days #30 tab Instructions: Propranolol tablets Referrals: PCP,None [Primary Care Provider] - Forms: ED Department Discharge Additional Instructions: The following information is given to patients seen in the emergency department who are being discharged to home. This information is to outline your options for follow-up care. We provide all patients seen in our emergency department with a follow-up referral. The need for follow-up, as well as the timing and circumstances, are variable depending upon the specifics of your emergency department visit. If you don't have a primary care physician on staff, we will provide you with a referral. We always advise you to contact your personal physician following an emergency department visit to inform them of the circumstance of the visit and for follow-up with them and/or the need for any referrals to a consulting specialist. The emergency department will also refer you to a specialist when appropriate. This referral assures that you have the opportunity for follow-up care with a sp ecialist. All of these measure are taken in an effort to provide you with optimal care, which includes your follow-up. Under all circumstances we always encourage you to contact your private physicia n who remains a resource for coordinating your care. When calling for follow-up care, please make the office aware that this follow-up is from your recent emergency room visit. If for any reason you are refused follow-up, please contact the [facility] Emergency Department at and asked to speak to the emergency department charge nurse. [facility] [address] [place] [address] [place] [address] Thank you for choosing the [facility] emergency department in [place] for your medical needs today. It was a pleasure caring for you. You were seen in the emergency department for adverse medication effects. 1. Please talk to your phonograph cartridge assembler on Monday about your concerns with the medication you been prescribed. I will prescribe you a limited amount of propranolol, please take as directed. 2. As we discussed, if you should have worsening symptoms or new symptoms that develop please return to the emergency room for evaluation. 3. Follow-up with your PUMP MACHINE OPERATOR as we discussed. Sepsis Event Note (ED) - Evaluation Sepsis Screening Result: No Definite Risk - Focused Exam Vital Signs: Vital Signs Temp Pulse Resp BP Pulse Ox 06/20/20 13:25 97.6 F 70 18 133/86 98
== END 2020-06-20 13:49 | disposition home or self-care (01) ==
LOC: MW.ED 13:08
DX: R42 Dizziness and giddiness (principal); T39.315A Adverse effect of propionic acid derivatives, initial encounter; I10 Essential (primary) hypertension; Z91.041 Radiographic dye allergy status
CPT/HCPCS: 99283

== ENCOUNTER 2020-06-28 18:58 | Emergency (ER) | payer BC ==
[2020-06-28] MEDS ORDERED: Sodium Chloride 0.9% 2.5 ML Syringe FLUSH PRN (19:21)
[2020-06-28] MEDS ORDERED: Sodium Chloride 0.9% 10 ML Syringe FLUSH PRN (19:21)
--- NOTE | 2020-06-28 19:30 | EDM.PDOC ---
ED HPI GENERAL MEDICAL PROBLEM - General Chief Complaint: Allergic Reaction Stated Complaint: MEDICATION REACTION Time Seen by Provider: 06/28/20 19:05 - History of Present Illness INITIAL COMMENTS - FREE TEXT/NARRATIVE: History of present illness: [] She feels weak. She is lightheaded when she stands. She has vertigo with things seeming to spin when she moves her head. Vomited 30 times today according to her. She has a slow heart rate around 50. Said that the baby on the of this month. Came in for feeling stoned and palpitations on the of this month and her heart rate was 150. She was started on propanolol ER 120 mg a day. The next day she came in and said she was having a reaction - felt weak - this was converted to 60 mg of ER once a day. At times she has felt better and felt worse. She has not had the extreme fast heart rate since. She has been alternating holding her propanolol with taking the 60 mg. She also has a couple of days and last few days taken the 120 mg because she was told the parking meter attendant recommended that dose. She began to have lightheadedness, weakness, dizziness, and vomiting 30 timestoday. She also reports loose stool, no abdominal or chest. Her lips feel cold. Her heart rates have been 50. Was here 18 June 2020 and the emergency physician documented her palpitations and started her on the propanolol. She came back 19 June 2020. Her dose was changed. threego she felt stoned and she took a full dose of propanolol that day and the next day. Then her heart rate was down to 60 but she felt better yesterday at the full 120 mg of the ER and at 9 AM she took that again today. Then at 2 p.m. she began to have her symptoms today. They are constant since. The patient had a percutaneous heart monitor patch placed which she kept for 4 days before she began to have some skin burning in the area and blistering. She took the patch off and it has not been sent in for reading. She has had a total of 3 episodes of tachycardia with palpitations that she knows of. One was last summer when she stopped gabapentin. 1 was also last summer before she began to have a fever while she was . The other one was on the of this month. Patient stopped smoking 5 years ago. She had a Mirena needed IUD placed the morning before heart rate jumped up to 150. Review of systems: As per history of present illness and below otherwise all systems reviewed and negative. Past medical history: As per history of present illness and as reviewed below otherwise noncontributory. Surgical history: As per history of present illness and as reviewed below otherwise noncontributory. Social history: No reported history of drug or alcohol abuse. Family history: As per history of present illness and as reviewed below otherwise noncontributory. Physical exam: Constitutional - well developed, well-nourished and in no acute distress HEENT - normocephalic, no evidence of trauma - external nose and mouth normal - no mass in neck and no JVD - mucosae moist but slightly pale EYES - full EOM, PERRL, no icterus - no evidence of inflammation, injection, or drainage Respiratory - no respiratory distress, equal bilateral expansion, lungs clear to auscultation and no abnormal lung sounds Cardiovascular - Regular Rhythm with S1 and S2 appreciated and no murmur, gallop or rub. GI - abdomen soft without distension or organomegaly - normal bowel sounds - no guard or rebound Musculoskeletal no gross deformity of long bones or joints - no tenderness, swelling or edema Neurologic - Alert and oriented times four - CN II-XII grossly intact - motor sensory and coordination symmetrically normal Psychiatric - appropriate mood and affect with normal thought content Hematologic - No petechiae or purpura - mucosa appropriate color and sclera not pale - normal nail bed color and refill Integument -pale no rash or evidence of trauma - normal turgor Diagnostics: [] EKG, laboratory, fluid challenge Therapeutics: [] Impression: [] Wave inversions that are new, hyponatremia, potassium is normalized. Plan: Observation and cardiology consult for echocardiogram. Our parking meter attendant is not available for several days. Discussed with Dr. Thomas in [place]. He wanted an echocardiogram and said the patient should be sent up after rule out pulmonary embolus. Discussed with Dr. Su and he agreed most graciously to accept the patient to the emergency department and arrange for the observation. [] Definitive disposition and diagnosis as appropriate pending reevaluation and review of above. - Related Data Allergies Allergy/AdvReac Type Severity Reaction Status Date / Time Iodinated Contrast Media Allergy Hives Verified 06/28/20 19:49 [Iodinated Contrast- Oral and IV Dye] Home Meds: Home Meds Propranolol HCl [Propranolol HCl ER] 120 mg PO DAILY #30 cap.sa.24h 06/19/20 [Rx] Propranolol [Inderal] 40 mg PO BID 15 Days #30 tab 06/20/20 [Rx] Past Medical History - Past Health History Medical/Surgical History: Denies Medical/Surgical History HEENT History: Reports: Other (See Below) Other HEENT History: tinnitis Cardiovascular History: Reports: Hypertension Other Cardiovascular History: Wearing heart monitor beginning 06/19 Respiratory History: Reports: None Gastrointestinal History: Reports: None Genitourinary History: Reports: None ORTHO NURSE History: Reports: None Musculoskeletal History: Reports: None Neurological History: Reports: Other (See Below) Other Neuro History: sleep paralysis Psychiatric History: Reports: Anxiety Endocrine/Metabolic History: Reports: None Hematologic History: Reports: None Immunologic History: Reports: None Oncologic (Cancer) History: Reports: None Dermatologic History: Reports: None - Infectious Disease History Infectious Disease History: Reports: None - Past Surgical History Head Surgeries/Procedures: Reports: None HEENT Surgical History: Reports: None Cardiovascular Surgical History: Reports: None Respiratory Surgical History: Reports: None GI Surgical History: Reports: None Female Surgical History: Reports: None Endocrine Surgical History: Reports: None Neurological Surgical History: Reports: None Musculoskeletal Surgical History: Reports: None Oncologic Surgical History: Reports: None Dermatological Surgical History: Reports: None Social & Family History - Family History Family Medical History: Noncontributory - Caffeine Use Caffeine Use: Reports: None ED ROS ALLERGIC REACTION - Review of Systems Review Of Systems: Comprehensive ROS is negative, except as noted in HPI. ED EXAM GENERAL NO PERIP PULSE - Physical Exam Exam: See Below Text/Narrative:: My physical exam is in the HPI EKG INTERPRETATION EKG Date: 06/28/20 Rhythm: Other (Bradycardia) P-Wave: Present QRS: Normal ST-T: Depressed (Depression with T wave inversion in V1 V2 V3 with a flat T wave in V4 and flat T wave in aVL.) Comparison: Change From Previous EKG (Wave inversions are new when compared to 18 June 2020) EKG Interpretation Comments: Wave inversions which could represent electrolyte imbalance or rate related ischemia. Course - Vital Signs Last Recorded V/S: Last Vital Signs Temp 98.1 F 06/28/20 20:50 Pulse 64 06/28/20 21:09 Resp 18 06/28/20 21:09 BP 127/70 06/28/20 21:09 Pulse Ox 100 06/28/20 21:09 - Orders/Labs/Meds Orders: Active Orders 24 hr Category Date Time Status Cardiac Monitoring [RC] . DIRECTED Care 06/28/20 19:21 Active Sodium Chloride 0.9% [Saline Flush] Med 06/28/20 19:21 Active 10 ml FLUSH ASDIRECTED PRN Sodium Chloride 0.9% [Saline Flush] Med 06/28/20 19:21 Active 2.5 ml FLUSH ASDIRECTED PRN Saline Lock Insert [OM.PC] Stat Oth 06/28/20 19:21 Ordered Medication Orders Sodium Chloride (Saline Flush) 10 ml FLUSH ASDIRECTED PRN PRN Reason: Keep Vein Open Sodium Chloride (Saline Flush) 2.5 ml FLUSH ASDIRECTED PRN PRN Reason: Keep Vein Open Labs: Laboratory Tests 06/28/20 06/28/20 06/28/20 Range/Units 19:27 19:27 19:29 WBC 13.40 H (4.0-11.0) K/uL RBC 4.26 L (4.30-5.90) M/uL Hgb 11.5 L (12.0-16.0) g/dL Hct 35.4 L (36.0-46.0) % MCV 83.1 (80.0-98.0) fL MCH 27.0 (27.0-32.0) pg MCHC 32.5 (31.0-37.0) g/dL RDW Std Deviation 38.6 (28.0-62.0) fl RDW Coeff of [place] 13 (11.0-15.0) % Plt Count 351 (150-400) K/uL MPV 9.30 (7.40-12.00) fL Neut % (Auto) 81.2 H (48.0-80.0) % Lymph % (Auto) 14.0 L (16.0-40.0) % Ware % (Auto) 2.8 (0.0-15.0) % Eos % (Auto) 1.8 (0.0-7.0) % Baso % (Auto) 0.2 (0.0-1.5) % Neut # (Auto) 10.9 H (1.4-5.7) K/uL Lymph # (Auto) 1.9 (0.6-2.4) K/uL Ware # (Auto) 0.4 (0.0-0.8) K/uL Eos # (Auto) 0.2 (0.0-0.7) K/uL Baso # (Auto) 0.0 (0.0-0.1) K/uL Nucleated RBC % 0.0 /100WBC Nucleated RBCs # 0 K/uL D-Dimer, Quantitative 0.25 (0.0-0.50) mg/L FEU Sodium 130 L (136-145) mmol/L Potassium 3.8 (3.5-5.1) mmol/L Chloride 96 L (98-107) mmol/L Carbon Dioxide 21.7 (21.0-32.0) mmol/L BUN 11 (7.0-18.0) mg/dL Creatinine 1.2 H (0.6-1.0) mg/dL Est Cr Clr Drug Dosing 58.25 mL/min Estimated GFR (MDRD) 53.9 ml/min Glucose 130 H (74-106) mg/dL Calcium 8.1 L (8.5-10.1) mg/dL Magnesium 1.9 (1.8-2.4) mg/dL Total Bilirubin 0.3 (0.2-1.0) mg/dL AST 18 (15-37) IU/L ALT 19 (14-63) IU/L Alkaline Phosphatase 114 (46-116) U/L Troponin I < 0.050 (0.000-0.056) ng/mL Total Protein 7.2 (6.4-8.2) g/dL Albumin 3.8 (3.4-5.0) g/dL Globulin 3.4 (2.6-4.0) g/dL Albumin/Globulin Ratio 1.1 (0.9-1.6) Meds: Medications Generic Name Dose Route Start Last Admin Trade Name Freq PRN Reason Stop Dose Admin Sodium Chloride 10 ml 06/28/20 19:21 Saline Flush FLUSH ASDIRECTED PRN Keep Vein Open Sodium Chloride 2.5 ml 06/28/20 19:21 Saline Flush FLUSH ASDIRECTED PRN Keep Vein Open Discontinued Medications Generic Name Dose Route Start Last Admin Trade Name Freq PRN Reason Stop Dose Admin Lactated Ringer's 1,000 mls @ 999 mls/hr 06/28/20 19:31 06/28/20 19:34 Ringers, Lactated IV 06/28/20 20:31 999 mls/hr .BOLUS ONE Administration Departure - Departure Time of Disposition: 21:45 Disposition: DC/Tfer to Acute Hospital 02 Condition: Good Clinical Impression: Palpitations, Vomiting, Hyponatremia, Sinus bradycardia, Adverse reaction to beta-jarett - Discharge Information Referrals: Consuelo Man CNM [Primary Care Provider] - Vickie Gage MD [Physician] - Care Plan Goals: Plan is to have an echocardiogram and cardiology consult which can only be obtained expeditiously if I transfer the patient. Sepsis Event Note (ED) - Focused Exam Vital Signs: Vital Signs Temp Pulse Resp BP Pulse Ox 06/28/20 21:09 64 18 127/70 100 06/28/20 20:50 98.1 F 62 16 118/64 100 06/28/20 20:18 58 L 16 126/83 100 06/28/20 19:49 97.2 F 67 16 134/64 100 06/28/20 19:34 65 14 124/67 100 - My Orders Last 24 Hours: My Active Orders 06/28/20 19:21 Cardiac Monitoring [RC] . DIRECTED Sodium Chloride 0.9% [Saline Flush] 10 ml FLUSH ASDIRECTED PRN Sodium Chloride 0.9% [Saline Flush] 2.5 ml FLUSH ASDIRECTED PRN Saline Lock Insert [OM.PC] Stat - Assessment/Plan Last 24 Hours: My Active Orders 06/28/20 19:21 Cardiac Monitoring [RC] . DIRECTED Sodium Chloride 0.9% [Saline Flush] 10 ml FLUSH ASDIRECTED PRN Sodium Chloride 0.9% [Saline Flush] 2.5 ml FLUSH ASDIRECTED PRN Saline Lock Insert [OM.PC] Stat
[2020-06-28] MEDS ORDERED: Lactated Ringers 1,000 ML IV ONE (19:31)
[2020-06-28 19:58] LABS: BLOOD UREA NITROGEN,BUN 11 mg/dL (7.0-18.0); CARBON DIOXIDE,CO2 21.7 mmol/L (21.0-32.0); CHLORIDE,CL 96 mmol/L (98-107); GLUCOSE RANDOM 130 mg/dL (74-106); POTASSIUM,K 3.8 mmol/L (3.5-5.1); SODIUM,NA 130 mmol/L (136-145)
== END 2020-06-28 22:50 ==
LOC: MW.ED 18:58
DX: R00.1 Bradycardia, unspecified (principal); R00.2 Palpitations; R11.10 Vomiting, unspecified; T44.7X5A Adverse effect of beta-adrenoreceptor antagonists, initial encounter; E87.1 Hypo-osmolality and hyponatremia; I10 Essential (primary) hypertension; Z91.041 Radiographic dye allergy status; Z79.899 Other long term (current) drug therapy
CPT/HCPCS: 36415; 80053; 83735; 84484; 85025; 85379; 93005; 96360; 99285; J7120

== ENCOUNTER 2020-07-07 17:19 | Emergency (ER) | payer BC ==
--- NOTE | 2020-07-07 20:08 | PCM.SN.2 ---
- Free Text/Narrative Note: No physician-patient contact. Refer to relay assembler. Patient did not want to be seen.
== END 2020-07-07 17:33 | disposition left against medical advice (07) ==
LOC: MW.ED 17:19
DX: Z53.21 Procedure and treatment not carried out due to patient leaving prior to being seen by health care provider (principal)

== ENCOUNTER 2020-07-08 03:35 | Emergency (ER) | payer BC ==
[2020-07-08] MEDS ORDERED: Sodium Chloride 0.9% 1,000 ML IV ONE ×2 (03:52→04:49)
[2020-07-08] MEDS ORDERED: Sodium Chloride 0.9% 2.5 ML Syringe FLUSH PRN (03:52)
[2020-07-08] MEDS ORDERED: Sodium Chloride 0.9% 10 ML Syringe FLUSH PRN (03:52)
[2020-07-08] MEDS ORDERED: Ondansetron 4 MG/2 ML SDV IVPUSH ONE (03:54)
[2020-07-08 04:28] LABS: BLOOD UREA NITROGEN,BUN 8 mg/dL (7.0-18.0); CARBON DIOXIDE,CO2 21.6 mmol/L (21.0-32.0); CHLORIDE,CL 92 mmol/L (98-107); GLUCOSE RANDOM 122 mg/dL (74-106); LIPASE 172 U/L (73-393); POTASSIUM,K 3.1 mmol/L (3.5-5.1); SODIUM,NA 127 mmol/L (136-145)
[2020-07-08] MEDS ORDERED: Potassium Chloride 20 MEQ Tab.ER PO ONE (04:50)
[2020-07-08] MEDS ORDERED: metroNIDAZOLE 250 MG Tab PO ONE (06:49)
[2020-07-08] MEDS: Ondansetron 4 MG/2 ML SDV IVPUSH ONE ×2 (06:58→07:07)
--- NOTE | 2020-07-08 07:03 | EDM.PDOC ---
ED HPI GENERAL MEDICAL PROBLEM - General Chief Complaint: Gastrointestinal Problem Stated Complaint: DIARRHEA, VOMITING, C-DIFF SYMPTOMS Time Seen by Provider: 07/08/20 03:47 - History of Present Illness INITIAL COMMENTS - FREE TEXT/NARRATIVE: HISTORY AND PHYSICAL: History of present illness: This is a 29-year-old female who presents the ER today secondary to nausea vomiting and diarrhea for 1 day. Patient reports over the last 24 hours she has had approximately 20 episodes of diarrhea and 15 episodes of emesis. Patient reports that she had low-grade fevers to 100. Patient reports that she took Tylenol approximate 1 hour prior to arrival today. Patient denies any dysuria frequency urgency, cough, URI symptoms. Patient has any melena or bright red blood per rectum. Patient denies any prior sick contacts. Patient reports she recently gave and she has had her first period 1 week ago. Patient reports no other sick family contacts. Patient is not breast-feeding at this time. Patient denies any history of hypertension, diabetes, liver, lung, kidney problems. Patient denies any abdominal or chest surgeries. Patient is 1 para 0. Patient denies any tobacco alcohol or drugs. Patient reports she had a recent admission approximately 1 week ago up at [facility] secondary to a bad reaction to propranolol. Review of systems: As per history of present illness and below otherwise all systems reviewed and negative. Past medical history: As per history of present illness and as reviewed below otherwise noncontributory. Surgical history: As per history of present illness and as reviewed below otherwise noncontributory. Social history: No reported history of drug or alcohol abuse. Family history: As per history of present illness and as reviewed below otherwise noncontributory. Physical exam: Constitutional: Patient is oriented to person, place, and time. Appears well- developed and well-nourished. No distress. HEENT: Dry mucous membranes Head: Normocephalic and atraumatic Eyes: Right eye exhibits no discharge. Left eye exhibits no discharge. No scleral icterus Neck: Normal range of motion. No tracheal deviation present. Cardiovascular: Normal rate and regular rhythm. Pulmonary: Effort normal, no respiratory distress. Abd abd: Soft, nondistended, no rebound/guarding, no psoas or obturator signs, no tenderness at Mcberney's point, no Rodriguez's sign. Pt does not present with an exam that would be consistent with an acute surgical abdomen at this time, nontender to palpation. Musculoskeletal: Normal range of motion Neurologic: Alert and oriented to person, place and time. Skin: [place], warm and dry. Psychiatric: Normal mood and affect. Behavior is normal. Judgment and thought content normal. Nursing note and vital signs have been reviewed Diagnostics: CBC, CMP, urinalysis all within normal limits. Therapeutics: 2 L NSS, Zofran 4 mg IV x2. Flagyl 500 mg p.o. Patient reevaluated multiple times throughout her ER visit. Patient reports t hat she does feel much improved after the IV fluids and Zofran. Assessment and plan: 29-year-old female who presents to the ER today secondary to nausea vomiting diarrhea x1 day. Patient is concerned because she was recently at [facility] and was admitted and had a roommate with an older lady and is concerned that she might have contracted an infection. This occurred approximately 1 week ago. I have discussed with the patient this is unlikely since it is 1 week ago. Given the amount of diarrhea that she has been experiencing and her concerns with recent hospitalizations I have offered to start her on Flagyl 500 mg 3 times daily to empirically treat her for bacterial sources of diarrhea. Patient be discharged home with Zofran. Patient appears clinically euvolemic at this time. Reassessment at the time of disposition demonstrates that the patient is in no acute distress. The patient has remained stable throughout the entire ED visit and is without objective evidence for acute process requiring urgent intervention or hospitalization. The patient is stable for discharge, counseling is provided as documented above, discussed symptomatic treatment and specific conditions for return. I have spoken with the patient/caregive and discussed todays findings, in addition to providing specific details for the plan of care. Questions are answered and there is agreement with the plan. Definitive disposition and diagnosis as appropriate pending reevaluation and review of above. Treatments [employer]FF [employer] OFFICER: Reports: Acetaminophen - Related Data Allergies Allergy/AdvReac Type Severity Reaction Status Date / Time Iodinated Contrast Media Allergy Hives Verified 07/08/20 03:45 [Iodinated Contrast- Oral and IV Dye] Home Meds: Home Meds Ondansetron [Zofran ODT] 4 mg PO Q6H PRN 07/08/20 [History] Ondansetron [Zofran ODT] 4 mg PO Q6H PRN #12 tab.dis 07/08/20 [Rx] metroNIDAZOLE [Flagyl] 500 mg PO Q8H #21 tab 07/08/20 [Rx] Past Medical History - Past Health History Medical/Surgical History: Denies Medical/Surgical History HEENT History: Reports: Other (See Below) Other HEENT History: tinnitis Cardiovascular History: Reports: Hypertension Other Cardiovascular History: Wearing heart monitor beginning 06/19 Respiratory History: Reports: None Gastrointestinal History: Reports: None Genitourinary History: Reports: None PLAN REP History: Reports: None Musculoskeletal History: Reports: None Neurological History: Reports: Other (See Below) Other Neuro History: sleep paralysis Psychiatric History: Reports: Anxiety Endocrine/Metabolic History: Reports: None Insulin Pump Model and House Moving Supervisor: None Hematologic History: Reports: None Immunologic History: Reports: None Oncologic (Cancer) History: Reports: None Dermatologic History: Reports: None - Infectious Disease History Infectious Disease History: Reports: None - Past Surgical History Head Surgeries/Procedures: Reports: None HEENT Surgical History: Reports: None Cardiovascular Surgical History: Reports: None Respiratory Surgical History: Reports: None GI Surgical History: Reports: None Female Surgical History: Reports: None Endocrine Surgical History: Reports: None Neurological Surgical History: Reports: None Musculoskeletal Surgical History: Reports: None Oncologic Surgical History: Reports: None Dermatological Surgical History: Reports: None Social & Family History - Family History Family Medical History: Noncontributory - Tobacco Use Smoking Status *Q: Former Smoker Used Tobacco, but Quit: No - Caffeine Use Caffeine Use: Reports: None - Recreational Drug Use Recreational Drug Use: No ED ROS GENERAL - Review of Systems Review Of Systems: Comprehensive ROS is negative, except as noted in HPI. ED EXAM, GENERAL - Physical Exam Exam: See Below Course - Vital Signs Last Recorded V/S: Last Vital Signs Temp 97.3 F 07/08/20 03:47 Pulse 89 07/08/20 05:44 Resp 19 07/08/20 05:44 BP 116/78 07/08/20 05:44 Pulse Ox 99 07/08/20 05:44 - Orders/Labs/Meds Orders: Active Orders 24 hr Category Date Time Status Ondansetron [Zofran] Med 07/08/20 06:52 Once 4 mg IVPUSH ONETIME ONE Sodium Chloride 0.9% [Saline Flush] Med 07/08/20 03:52 Active 10 ml FLUSH ASDIRECTED PRN Sodium Chloride 0.9% [Saline Flush] Med 07/08/20 03:52 Active 2.5 ml FLUSH ASDIRECTED PRN Saline Lock Insert [OM.PC] Stat Oth 07/08/20 03:52 Ordered Medication Orders Sodium Chloride (Saline Flush) 10 ml FLUSH ASDIRECTED PRN PRN Reason: Keep Vein Open Last Admin: 07/08/20 03:58 Dose: 10 ml Documented by: DELILAH Sodium Chloride (Saline Flush) 2.5 ml FLUSH ASDIRECTED PRN PRN Reason: Keep Vein Open Last Admin: 07/08/20 03:58 Dose: 2.5 ml Documented by: DELILAH Labs: Laboratory Tests 07/08/20 07/08/20 07/08/20 Range/Units 03:58 03:58 05:15 WBC 9.54 (4.0-11.0) K/uL RBC 4.57 (4.30-5.90) M/uL Hgb 12.6 (12.0-16.0) g/dL Hct 37.3 (36.0-46.0) % MCV 81.6 (80.0-98.0) fL MCH 27.6 (27.0-32.0) pg MCHC 33.8 (31.0-37.0) g/dL RDW Std Deviation 38.8 (28.0-62.0) fl RDW Coeff of [place] 13 (11.0-15.0) % Plt Count 281 (150-400) K/uL MPV 9.40 (7.40-12.00) fL Neut % (Auto) 85.8 H (48.0-80.0) % Lymph % (Auto) 6.7 L (16.0-40.0) % Lane % (Auto) 6.9 (0.0-15.0) % Eos % (Auto) 0.4 (0.0-7.0) % Baso % (Auto) 0.2 (0.0-1.5) % Neut # (Auto) 8.2 H (1.4-5.7) K/uL Lymph # (Auto) 0.6 (0.6-2.4) K/uL Lane # (Auto) 0.7 (0.0-0.8) K/uL Eos # (Auto) 0.0 (0.0-0.7) K/uL Baso # (Auto) 0.0 (0.0-0.1) K/uL Nucleated RBC % 0.0 /100WBC Nucleated RBCs # 0 K/uL Sodium 127 L (136-145) mmol/L Potassium 3.1 L (3.5-5.1) mmol/L Chloride 92 L (98-107) mmol/L Carbon Dioxide 21.6 (21.0-32.0) mmol/L BUN 8 (7.0-18.0) mg/dL Creatinine 1.0 (0.6-1.0) mg/dL Est Cr Clr Drug Dosing TNP Estimated GFR (MDRD) > 60.0 ml/min Glucose 122 H (74-106) mg/dL Calcium 7.9 L (8.5-10.1) mg/dL Total Bilirubin 0.4 (0.2-1.0) mg/dL AST 25 (15-37) IU/L ALT 26 (14-63) IU/L Alkaline Phosphatase 122 H (46-116) U/L Total Protein 7.6 (6.4-8.2) g/dL Albumin 4.0 (3.4-5.0) g/dL Globulin 3.6 (2.6-4.0) g/dL Albumin/Globulin Ratio 1.1 (0.9-1.6) Lipase 172 (73-393) U/L Urine Color YELLOW Urine Appearance CLEAR Urine pH 5.0 (5.0-8.0) Ur Specific [place] <= 1.005 (1.001-1.035) Urine Protein NEGATIVE (NEGATIVE) mg/dL Urine Glucose (UA) NEGATIVE (NEGATIVE) mg/dL Urine Ketones NEGATIVE (NEGATIVE) mg/dL Urine Occult Blood NEGATIVE (NEGATIVE) Urine Nitrite NEGATIVE (NEGATIVE) Urine Bilirubin NEGATIVE (NEGATIVE) Urine Urobilinogen 0.2 (<2.0) EU/dL Ur Leukocyte Esterase NEGATIVE (NEGATIVE) Urine HCG, Qual (NEGATIVE) 07/08/20 Range/Units 05:15 WBC (4.0-11.0) K/uL RBC (4.30-5.90) M/uL Hgb (12.0-16.0) g/dL Hct (36.0-46.0) % MCV (80.0-98.0) fL MCH (27.0-32.0) pg MCHC (31.0-37.0) g/dL RDW Std Deviation (28.0-62.0) fl RDW Coeff of [place] (11.0-15.0) % Plt Count (150-400) K/uL MPV (7.40-12.00) fL Neut % (Auto) (48.0-80.0) % Lymph % (Auto) (16.0-40.0) % Lane % (Auto) (0.0-15.0) % Eos % (Auto) (0.0-7.0) % Baso % (Auto) (0.0-1.5) % Neut # (Auto) (1.4-5.7) K/uL Lymph # (Auto) (0.6-2.4) K/uL Lane # (Auto) (0.0-0.8) K/uL Eos # (Auto) (0.0-0.7) K/uL Baso # (Auto) (0.0-0.1) K/uL Nucleated RBC % /100WBC Nucleated RBCs # K/uL Sodium (136-145) mmol/L Potassium (3.5-5.1) mmol/L Chloride (98-107) mmol/L Carbon Dioxide (21.0-32.0) mmol/L BUN (7.0-18.0) mg/dL Creatinine (0.6-1.0) mg/dL Est Cr Clr Drug Dosing Estimated GFR (MDRD) ml/min Glucose (74-106) mg/dL Calcium (8.5-10.1) mg/dL Total Bilirubin (0.2-1.0) mg/dL AST (15-37) IU/L ALT (14-63) IU/L Alkaline Phosphatase (46-116) U/L Total Protein (6.4-8.2) g/dL Albumin (3.4-5.0) g/dL Globulin (2.6-4.0) g/dL Albumin/Globulin Ratio (0.9-1.6) Lipase (73-393) U/L Urine Color Urine Appearance Urine pH (5.0-8.0) Ur Specific [place] (1.001-1.035) Urine Protein (NEGATIVE) mg/dL Urine Glucose (UA) (NEGATIVE) mg/dL Urine Ketones (NEGATIVE) mg/dL Urine Occult Blood (NEGATIVE) Urine Nitrite (NEGATIVE) Urine Bilirubin (NEGATIVE) Urine Urobilinogen (<2.0) EU/dL Ur Leukocyte Esterase (NEGATIVE) Urine HCG, Qual NEGATIVE (NEGATIVE) Meds: Medications Generic Name Dose Route Start Last Admin Trade Name Freq PRN Reason Stop Dose Admin Sodium Chloride 10 ml 07/08/20 03:52 07/08/20 03:58 Saline Flush FLUSH 10 ml ASDIRECTED PRN Administration Keep Vein Open Sodium Chloride 2.5 ml 07/08/20 03:52 07/08/20 03:58 Saline Flush FLUSH 2.5 ml ASDIRECTED PRN Administration Keep Vein Open Discontinued Medications Generic Name Dose Route Start Last Admin Trade Name Freq PRN Reason Stop Dose Admin Sodium Chloride 1,000 mls @ 999 mls/hr 07/08/20 03:52 07/08/20 03:58 Normal Saline IV 07/08/20 04:52 999 mls/hr .Bolus ONE Administration Sodium Chloride 1,000 mls @ 999 mls/hr 07/08/20 04:49 07/08/20 04:57 Normal Saline IV 07/08/20 05:49 999 mls/hr .Bolus ONE Administration Metronidazole 500 mg 07/08/20 06:49 Metronidazole PO 07/08/20 06:50 ONETIME ONE Ondansetron HCl 4 mg 07/08/20 03:54 07/08/20 03:58 Zofran IVPUSH 07/08/20 03:55 4 mg ONETIME ONE Administration Potassium Chloride 40 meq 07/08/20 04:50 07/08/20 04:56 Klor-Con M20 PO 07/08/20 04:51 40 meq ONETIME ONE Administration Departure - Departure Time of Disposition: 06:52 Disposition: Home, Self-Care 01 Condition: Good Clinical Impression: Gastroenteritis, Dehydration - Discharge Information Instructions: Dehydration, Adult, [id number], Nausea and Vomiting, Adult, [id number] Referrals: PCP,None [Primary Care Provider] - Additional Instructions: Your seen and evaluated today secondary to your vomiting and diarrhea. Your blood tests revealed that you had dehydration. You were given 2 L of normal saline here in the ED. You will be started on Zofran to assist you with your nausea and vomiting however this will not stop your diarrhea. You will be started on an antibiotic called Flagyl which is to be taking 3 times a day for 7 days to assist with your diarrhea. Please return the ER if you start developing high fevers worsening abdominal pain or any other new or concerning symptoms. Please make an appointment to see your family doctor within 2 to 3 days if your symptoms are not improving. The following information is given to patients seen in the emergency department who are being discharged to home. This information is to outline your options for follow-up care. We provide all patients seen in our emergency department with a follow-up referral. The need for follow-up, as well as the timing and circumstances, are variable depending upon the specifics of your emergency department visit. If you don't have a primary care physician on staff, we will provide you with a referral. We always advise you to contact your personal physician following an emergency department visit to inform them of the circumstance of the visit and for follow-up with them and/or the need for any referrals to a consulting specialist. The emergency department will also refer you to a specialist when appropriate. This referral assures that you have the opportunity for follow-up care with a specialist. All of these measure are taken in an effort to provide you with optimal care, which includes your follow-up. Under all circumstances we always encourage you to contact your private physician who remains a resource for coordinating your care. When calling for follow-up care, please make the office aware that this follow-up is from your recent emergency room visit. If for any reason you are refused follow-up, please contact the Emergency Department at and asked to speak to the emergency department charge nurse. [facility] - Internal Medicine [address] [place] [id number] Sepsis Event Note (ED) - Evaluation Sepsis Screening Result: No Definite Risk - Focused Exam Vital Signs: Vital Signs Temp Pulse Resp BP Pulse Ox 07/08/20 05:44 89 19 116/78 99 07/08/20 05:00 98 19 97 07/08/20 04:44 107 H 18 108/79 98 07/08/20 04:14 102 H 122/74 99 07/08/20 03:47 97.3 F 112 H 18 132/89 98 - My Orders Last 24 Hours: My Active Orders 07/08/20 03:52 Sodium Chloride 0.9% [Saline Flush] 10 ml FLUSH ASDIRECTED PRN Sodium Chloride 0.9% [Saline Flush] 2.5 ml FLUSH ASDIRECTED PRN Saline Lock Insert [OM.PC] Stat 07/08/20 06:52 Ondansetron [Zofran] 4 mg IVPUSH ONETIME ONE - Assessment/Plan Last 24 Hours: My Active Orders 07/08/20 03:52 Sodium Chloride 0.9% [Saline Flush] 10 ml FLUSH ASDIRECTED PRN Sodium Chloride 0.9% [Saline Flush] 2.5 ml FLUSH ASDIRECTED PRN Saline Lock Insert [OM.PC] Stat 07/08/20 06:52 Ondansetron [Zofran] 4 mg IVPUSH ONETIME ONE
== END 2020-07-08 07:14 | disposition home or self-care (01) ==
LOC: MW.ED 03:35
DX: K52.9 Noninfective gastroenteritis and colitis, unspecified (principal); E86.0 Dehydration; I10 Essential (primary) hypertension; Z87.891 Personal history of nicotine dependence; Z91.041 Radiographic dye allergy status
CPT/HCPCS: 36415; 80053; 81003; 81025; 83690; 85025; 96361; 96374; 96376; 99284; A9270; J2405; J7030; 99283

== ENCOUNTER 2020-07-09 02:36 | Emergency (ER) | payer BC ==
[2020-07-09] MEDS ORDERED: Sodium Chloride 0.9% 2.5 ML Syringe FLUSH PRN (03:00)
[2020-07-09] MEDS ORDERED: Sodium Chloride 0.9% 10 ML Syringe FLUSH PRN (03:00)
[2020-07-09] MEDS ORDERED: Sodium Chloride 0.9% 1,000 ML IV ONE (03:00)
[2020-07-09] MEDS ORDERED: metroNIDAZOLE 250 MG Tab PO ONE (03:08)
[2020-07-09 03:43] LABS: CARBON DIOXIDE,CO2 20.9 mmol/L (21.0-32.0); POTASSIUM,K 3.3 mmol/L (3.5-5.1)
--- NOTE | 2020-07-09 05:37 | EDM.PDOC ---
ED HPI GENERAL MEDICAL PROBLEM - General Chief Complaint: Gastrointestinal Problem Stated Complaint: DEHYDRATION, VOMITING, DIARRHEA Time Seen by Provider: 07/09/20 02:45 History Limitations: Reports: Respiratory Distress - History of Present Illness INITIAL COMMENTS - FREE TEXT/NARRATIVE: HISTORY AND PHYSICAL: History of present illness: This is a 29-year-old female who presents the ER today secondary to persistent diarrhea. Patient was seen in the ER yesterday's secondary to the same I was given IV fluids and potassium repletion. Patient was discharged with a prescription for Flagyl secondary to the amount of diarrhea that she was having. Patient was concerned that she might have C. difficile. Patient reports that she had gone to the COVID clinic and had a COVID test and stool tests but has not gotten the results as of yet. She was told he would take 48 hours and today would be the end of the 48-hour period. Patient reports that she is returning to the ER secondary to continuing diarrhea. Patient reports that she was drinking blue Gatorade and blue stool was coming out of her shortly thereafter. Patient reports her vomiting has resolved with the Zofran and is doing much better tolerating p.o.'s. Patient reports that she has had tactile fevers, nausea with no vomiting, no dysuria, frequency, urgency. Mild abdominal cramping. No melena/bright red blood per rectum. No prior episodes of similar bouts of diarrhea. Patient reports that she has not taken the prescription of Flagyl that was prescribed to her because she wanted to wait until she got the stool culture results. Review of systems: As per history of present illness and below otherwise all systems reviewed and negative. Past medical history: As per history of present illness and as reviewed below otherwise noncontributory. Surgical history: As per history of present illness and as reviewed below otherwise noncontributory. Social history: No reported history of drug or alcohol abuse. Family history: As per history of present illness and as reviewed below otherwise noncontributory. Physical exam: Constitutional: Patient is oriented to person, place, and time. Appears well- developed and well-nourished. No distress. HEENT: Moist mucous membranes Head: Normocephalic and atraumatic Eyes: Right eye exhibits no discharge. Left eye exhibits no discharge. No scleral icterus Neck: Normal range of motion. No tracheal deviation present. Cardiovascular: Normal rate and regular rhythm. Pulmonary: Effort normal, no respiratory distress. Abd: Soft, nondistended, no rebound/guarding, no psoas or obturator signs, no tenderness at Mcberney's point, no Rodriguez's sign. Pt does not present with an exam that would be consistent with an acute surgical abdomen at this time. Minimal tenderness to palpation diffusely. Musculoskeletal: Normal range of motion Neurologic: Alert and oriented to person, place and time. Skin: [place], warm and dry. Psychiatric: Normal mood and affect. Behavior is normal. Judgment and thought content normal. Nursing note and vital signs have been reviewed Diagnostics: CBC/CMP within normal limits. Patient's sodium was slightly low. Patient potassium 3.3. Stool cultures and C. difficile ordered and sent. Therapeutics: 1 L NSS Zofran Assessment and plan 29-year-old female who presents the ER today secondary to persistent diarrhea. Patient reports that her nausea and vomiting has resolved but her diarrhea has continued. Patient was concerned about dehydration. Given the amount of diarrhea that she is having, patient was given 1 L of NSS. Patient's labs are unremarkable. Patient exhibits slight hyponatremia. While in the ED, the patient reports that she feels significant improved and that her diarrhea has slowed down significantly. Stool cultures have been sent as well as C. difficile. Patient was encouraged to start her Flagyl as soon as possible. Patient was instructed to follow-up with her primary care physician in 1 to 2 days for reevaluation Reassessment at the time of disposition demonstrates that the patient is in no acute distress. The patient has remained stable throughout the entire ED visit and is without objective evidence for acute process requiring urgent intervention or hospitalization. The patient is stable for discharge, counseling is provided as documented above, discussed symptomatic treatment and specific conditions for return. I have spoken with the patient/caregive and discussed todays findings, in addition to providing specific details for the plan of care. Questions are answered and there is agreement with the plan. abdomen Pain Score (Numeric/FACES): 2 - Related Data Allergies Allergy/AdvReac Type Severity Reaction Status Date / Time Iodinated Contrast Media Allergy Hives Verified 07/09/20 02:58 [Iodinated Contrast- Oral and IV Dye] Home Meds: Home Meds Ondansetron [Zofran ODT] 4 mg PO Q6H PRN 07/08/20 [History] Ondansetron [Zofran ODT] 4 mg PO Q6H PRN #12 tab.dis 07/08/20 [Rx] metroNIDAZOLE [Flagyl] 500 mg PO Q8H #21 tab 07/08/20 [Rx] Past Medical History - Past Health History Medical/Surgical History: Denies Medical/Surgical History HEENT History: Reports: Other (See Below) Other HEENT History: tinnitis Cardiovascular History: Reports: Hypertension Other Cardiovascular History: Wearing heart monitor beginning 06/19 Respiratory History: Reports: None Gastrointestinal History: Reports: None Genitourinary History: Reports: None [employer] History: Reports: Musculoskeletal History: Reports: None Neurological History: Reports: Other (See Below) Other Neuro History: sleep paralysis Psychiatric History: Reports: Anxiety Endocrine/Metabolic History: Reports: None Insulin Pump Model and Belt Line Feeder: None Hematologic History: Reports: None Immunologic History: Reports: None Oncologic (Cancer) History: Reports: None Dermatologic History: Reports: None - Infectious Disease History Infectious Disease History: Reports: None - Past Surgical History Head Surgeries/Procedures: Reports: None HEENT Surgical History: Reports: None Cardiovascular Surgical History: Reports: None Respiratory Surgical History: Reports: None GI Surgical History: Reports: None Female Surgical History: Reports: None Endocrine Surgical History: Reports: None Neurological Surgical History: Reports: None Musculoskeletal Surgical History: Reports: None Oncologic Surgical History: Reports: None Dermatological Surgical History: Reports: None Social & Family History - Family History Family Medical History: Noncontributory - Tobacco Use Smoking Status *Q: Never Smoker Second Hand Smoke Exposure: No - Caffeine Use Caffeine Use: Reports: None - Recreational Drug Use Recreational Drug Use: No ED ROS GENERAL - Review of Systems Review Of Systems: Comprehensive ROS is negative, except as noted in HPI. ED EXAM, GENERAL - Physical Exam Exam: See Below Course - Vital Signs Last Recorded V/S: Last Vital Signs Temp 97.6 F 07/09/20 02:38 Pulse 82 07/09/20 05:00 Resp 17 07/09/20 05:00 BP 104/72 07/09/20 05:00 Pulse Ox 98 07/09/20 05:00 - Orders/Labs/Meds Orders: Active Orders 24 hr Category Date Time Status STOOL CULTURE/SHIGA TOXIN [MREF] Stat Lab 07/09/20 03:10 Received Sodium Chloride 0.9% [Saline Flush] Med 07/09/20 03:00 Active 10 ml FLUSH ASDIRECTED PRN Sodium Chloride 0.9% [Saline Flush] Med 07/09/20 03:00 Active 2.5 ml FLUSH ASDIRECTED PRN Saline Lock Insert [OM.PC] Stat Oth 07/09/20 03:00 Ordered Medication Orders Sodium Chloride (Saline Flush) 10 ml FLUSH ASDIRECTED PRN PRN Reason: Keep Vein Open Last Admin: 07/09/20 03:27 Dose: 10 ml Documented by: CHIP Sodium Chloride (Saline Flush) 2.5 ml FLUSH ASDIRECTED PRN PRN Reason: Keep Vein Open Last Admin: 07/09/20 03:27 Dose: 2.5 ml Documented by: CHIP Labs: Laboratory Tests 07/09/20 07/09/20 Range/Units 03:15 03:15 WBC 10.97 (4.0-11.0) K/uL RBC 4.32 (4.30-5.90) M/uL Hgb 11.9 L (12.0-16.0) g/dL Hct 35.4 L (36.0-46.0) % MCV 81.9 (80.0-98.0) fL MCH 27.5 (27.0-32.0) pg MCHC 33.6 (31.0-37.0) g/dL RDW Std Deviation 37.7 (28.0-62.0) fl RDW Coeff of [place] 13 (11.0-15.0) % Plt Count 241 (150-400) K/uL MPV 9.20 (7.40-12.00) fL Neut % (Auto) 85.6 H (48.0-80.0) % Lymph % (Auto) 5.5 L (16.0-40.0) % [place] % (Auto) 8.0 (0.0-15.0) % Eos % (Auto) 0.7 (0.0-7.0) % Baso % (Auto) 0.2 (0.0-1.5) % Neut # (Auto) 9.4 H (1.4-5.7) K/uL Lymph # (Auto) 0.6 (0.6-2.4) K/uL [place] # (Auto) 0.9 H (0.0-0.8) K/uL Eos # (Auto) 0.1 (0.0-0.7) K/uL Baso # (Auto) 0.0 (0.0-0.1) K/uL Sodium 127 L (136-145) mmol/L Potassium 3.3 L (3.5-5.1) mmol/L Chloride 94 L (98-107) mmol/L Carbon Dioxide 20.9 L (21.0-32.0) mmol/L BUN 4 L (7.0-18.0) mg/dL Creatinine 1.1 H (0.6-1.0) mg/dL Est Cr Clr Drug Dosing 63.55 mL/min Estimated GFR (MDRD) 59.6 ml/min Glucose 115 H (74-106) mg/dL Calcium 8.0 L (8.5-10.1) mg/dL Total Bilirubin 0.2 (0.2-1.0) mg/dL AST 30 (15-37) IU/L ALT 33 (14-63) IU/L Alkaline Phosphatase 110 (46-116) U/L Total Protein 7.3 (6.4-8.2) g/dL Albumin 3.8 (3.4-5.0) g/dL Globulin 3.5 (2.6-4.0) g/dL Albumin/Globulin Ratio 1.1 (0.9-1.6) Meds: Medications Generic Name Dose Route Start Last Admin Trade Name Freq PRN Reason Stop Dose Admin Sodium Chloride 10 ml 07/09/20 03:00 07/09/20 03:27 Saline Flush FLUSH 10 ml ASDIRECTED PRN Administration Keep Vein Open Sodium Chloride 2.5 ml 07/09/20 03:00 07/09/20 03:27 Saline Flush FLUSH 2.5 ml ASDIRECTED PRN Administration Keep Vein Open Discontinued Medications Generic Name Dose Route Start Last Admin Trade Name Freq PRN Reason Stop Dose Admin Sodium Chloride 1,000 mls @ 999 mls/hr 07/09/20 03:00 07/09/20 03:23 Normal Saline IV 07/09/20 04:00 999 mls/hr .Bolus ONE Administration Metronidazole 500 mg 07/09/20 03:08 07/09/20 03:23 Metronidazole PO 07/09/20 03:09 500 mg ONETIME ONE Administration Departure - Departure Time of Disposition: 05:37 Disposition: Home, Self-Care 01 Condition: Good Clinical Impression: Gastroenteritis, Dehydration, Hyponatremia - Discharge Information Instructions: Dehydration, Adult, [id number], Viral Gastroenteritis, Adult, [id number] Referrals: PCP,None [Primary Care Provider] - Additional Instructions: Please start taking the prescription of Flagyl that was prescribed for you yesterday. Please make an appointment to see your family doctor in 1 to 2 days for reevaluation. The following information is given to patients seen in the emergency department who are being discharged to home. This information is to outline your options for follow-up care. We provide all patients seen in our emergency department with a follow-up referral. The need for follow-up, as well as the timing and circumstances, are variable de pending upon the specifics of your emergency department visit. If you don't have a primary care physician on staff, we will provide you with a referral. We always advise you to contact your personal physician following an emergency department visit to inform them of the circumstance of the visit and for follow-up with them and/or the need for any referrals to a consulting specialist. The emergency department will also refer you to a specialist when appropriate. This referral assures that you have the opportunity for follow-up care with a specialist. All of these measure are taken in an effort to provide you with optimal care, which includes your follow-up. Under all circumstances we always encourage you to contact your private physician who remains a resource for coordinating your care. When calling for follow-up care, please make the office aware that this follow-up is from your recent emergency room visit. If for any reason you are refused follow-up, please contact the [facility] Emergency Department at and asked to speak to the emergency department charge nurse. Sepsis Event Note (ED) - Evaluation Sepsis Screening Result: No Definite Risk - Focused Exam Vital Signs: Vital Signs Temp Pulse Resp BP Pulse Ox 07/09/20 05:00 82 17 104/72 98 07/09/20 03:00 105 H 17 129/91 H 97 07/09/20 02:38 97.6 F 126 H 18 93/62 98 - My Orders Last 24 Hours: My Active Orders 07/09/20 03:00 Sodium Chloride 0.9% [Saline Flush] 10 ml FLUSH ASDIRECTED PRN Sodium Chloride 0.9% [Saline Flush] 2.5 ml FLUSH ASDIRECTED PRN Saline Lock Insert [OM.PC] Stat 07/09/20 03:10 STOOL CULTURE/SHIGA TOXIN [MREF] Stat - Assessment/Plan Last 24 Hours: My Active Orders 07/09/20 03:00 Sodium Chloride 0.9% [Saline Flush] 10 ml FLUSH ASDIRECTED PRN Sodium Chloride 0.9% [Saline Flush] 2.5 ml FLUSH ASDIRECTED PRN Saline Lock Insert [OM.PC] Stat 07/09/20 03:10 STOOL CULTURE/SHIGA TOXIN [MREF] Stat
== END 2020-07-09 05:54 | disposition home or self-care (01) ==
LOC: MW.ED 02:36
DX: K52.9 Noninfective gastroenteritis and colitis, unspecified (principal); E87.1 Hypo-osmolality and hyponatremia; E86.0 Dehydration; I10 Essential (primary) hypertension; Z91.041 Radiographic dye allergy status
CPT/HCPCS: 36415; 80053; 85025; 87045; 87046; 87324; 87449; 87899; 96360; 99284; A9270; J7030

== ENCOUNTER 2020-07-17 17:51 | Emergency (ER) | payer BC ==
--- NOTE | 2020-07-17 18:08 | EDM.PDOC ---
ED HPI GENERAL MEDICAL PROBLEM - General Stated Complaint: EKG ABNORMAL NOT FEELING WELL Time Seen by Provider: 07/17/20 18:05 Source of Information: Reports: Patient History Limitations: Reports: No Limitations - History of Present Illness INITIAL COMMENTS - FREE TEXT/NARRATIVE: HISTORY AND PHYSICAL: History of present illness: Patient is a 29-year-old female who presents to the emergency room with multiple vague complaints. Patient has been seen a handful of times over the past 1 month for tachycardia, medication reaction and recently persistent diarrhea (see NOTE section for details). This afternoon she she went to her primary care provider for continuing to not feel well, ongoing for the past 2 to 3 weeks. They had performed basic lab work and and EKG. The EKG was reported to be "abnormal". Per the patient the provider told her this was likely due to electrolyte abnormalities from her diarrhea. Discharged home after labs had been drawn. About an hour ago, she received a phone call stating that her electrolytes were fine but her kidney function was "off". Patient is tearful and upset that she had been sent home with an abnormal EKG and concerned about her kidneys. She states she continues to have diarrhea over the past 2 to 3 weeks, loss of appetite, generalized abdominal pain without tenderness. She states "I think I have some weird virus" as she has been seen multiple times without any direct answers. Patient denies any fever, chills, headache, change in vision, syncope or near syncope. Denies any chest pain, back pain, shortness of breath or cough. Denies any nausea, vomiting, constipation or dysuria. Has not noted any blood in urine or stool. Patient has not been eating and drinking appropriately, due to lack of appetite. Review of systems: As per history of present illness and below otherwise all systems reviewed and negative. Past medical history: As per history of present illness and as reviewed below otherwise noncontributory. Surgical history: As per history of present illness and as reviewed below otherwise noncontributory. Social history: See social history for further information Family history: As per history of present illness and as reviewed below otherwise noncontributory. Physical exam: General: Well developed and well nourished 29-year-old female. Alert and orientated x 3. Nontoxic in appearance and in no acute distress. Vital signs are stable and have been reviewed by me. Nursing notes were reviewed. HEENT: Atraumatic, normocephalic, pupils equal and reactive bilaterally, negative for conjunctival pallor or scleral icterus, mucous membranes moist, TMs normal bilaterally, throat clear, neck supple, nontender, trachea midline. No drooling or trismus noted. No meningeal signs. No hot potato voice noted. Lungs: Clear to auscultation, breath sounds equal bilaterally, chest nontender. Normal work of breathing, no accessory muscles used. Heart: S1S2, regular rate and rhythm without overt murmur Abdomen: Soft, nondistended, nontender. No rebound tenderness. No CVA tenderness. Skin: Intact, warm, dry. No lesions or rashes noted. Hematologic: No petechiae or purpra. Mucosa appropriate color and normal nail bed color and refill. Extremities: Atraumatic, moves all extremities per self without difficulty or deficits, negative for cords or calf pain. Neurovascular unremarkable. Neuro: Awake, alert, oriented. Cranial nerves II through XII unremarkable. Cerebellum unremarkable. Motor and sensory unremarkable throughout. Exam nonfocal. Psychiatric: Mood and affect are appropriate. Normal thought process. Answering questions appropriately. Notes: 06/18/20: Patient initially was seen in the emergency room for an episode of palpitations and tachycardia. At this time she was started on propranolol and recommended to follow-up with cardiology. Cardiology/her PCP put her on a ZIO patch. 06/20/20: Patient complaining of needing her medications adjusted as she felt she was "sensitive" to the dosing. Requesting it to be lowered 06/28/20: Patient was transferred to [facility] in [place] for cardiology. At this time she was seen by Dr. Thomas and an echocardiogram was done. They took her off the propranolol feeling that her symptoms were related to an allergic reaction. : Was seen in the emergency room for frequent diarrhea. She took a one- week regiment of Flagyl. Later found out her stool studies were negative for culture/Campylobacter, ova and parasite. Recent COVID-19 screening (results = negative). Patient's lab work is unremarkable. Initial EKG done at 1837 shows sinus tachycardia with a rate of 113, she does have some borderline T abnormalities. A d-dimer has been added on as the patient states she just had a CTA while at [facility] in [place] (last week) and was normal. Troponin and d-dimer are normal. I did a repeat EKG which shows a sinus rhythm with a rate of 72 (I had Dr Green review #1 and #2 along with previous EKGs done in the ER). No STEMI or acute concerns. Upon reevaluation she is appropriate for discharge. She remains very anxious, stating she is wondering if she needs to be back on a medication like propranolol for her intermittent elevated heart rate. As the patient has been seen by a display screen fabricator and her primary care provider for these symptoms I encouraged her to follow-up with them again so they can come up with a medication plan suited for her. Today there is nothing life threatening which would prompt me to place her on any medications for the tachycardia which is now resolved. Vital signs remained stable. We discussed signs and symptoms that would prompt them to return to the Emergency Department. Medication, follow up and supportive care measures were reviewed and discussed. Voices understanding and is agreeable to plan of care. Denies any further questions or concerns at this time. Diagnostics: CBC, CMP, Troponin, EKG x 2, Abd/Pelvis CT, UA, HCGU Therapeutics: IV fluids Prescription: None Impression: Tachycardia Persistent diarrhea Plan: 1. Today your physical exam was normal with the exception of intermittent tachycardia. Your lab work, CT of abdomen/pelvis were normal. Please start to introduce solids into your diet (bananas, rice toast, etc...) to bulk up your stools. I would like you to be re-seen by your primary care provider, as I feel there is some component of anxiety related to your symptoms. The EKG showed some T abnormalities, which are not life threatening, but should be further monitored by a display screen fabricator. You can either be seen here in [place] by Dr Diaz or return to [facility] in [place]. 2. Try to decrease your stress. Increase your fluids. Alternate Tylenol and Ibuprofen as needed. 3. We always encourage you to follow up with your primary care provider or recommended specialist in the next few days for re-evaluation and further care/management. If your symptoms should worsen, new symptoms develop or any of the signs and symptoms we discussed should arise please return to the emergency room or call 911 (if needed). Definitive disposition and diagnosis as appropriate pending reevaluation and review of above. - Related Data Allergies Allergy/AdvReac Type Severity Reaction Status Date / Time Iodinated Contrast Media Allergy Hives Verified 07/17/20 18:20 [Iodinated Contrast- Oral and IV Dye] propranolol Allergy Cannot Verified 07/17/20 18:20 Remember Home Meds: Home Meds . [No Known Home Meds] 07/17/20 [History] Past Medical History - Past Health History Medical/Surgical History: Denies Medical/Surgical History HEENT History: Reports: Other (See Below) Other HEENT History: tinnitis Cardiovascular History: Reports: Hypertension Other Cardiovascular History: Wearing heart monitor beginning 06/19 Respiratory History: Reports: None Gastrointestinal History: Reports: None Genitourinary History: Reports: None VENEER LAYER History: Reports: Musculoskeletal History: Reports: None Neurological History: Reports: Other (See Below) Other Neuro History: sleep paralysis Psychiatric History: Reports: Anxiety Endocrine/Metabolic History: Reports: None Insulin Pump Model and Print Support Specialist: None Hematologic History: Reports: None Immunologic History: Reports: None Oncologic (Cancer) History: Reports: None Dermatologic History: Reports: None - Infectious Disease History Infectious Disease History: Reports: None - Past Surgical History Head Surgeries/Procedures: Reports: None HEENT Surgical History: Reports: None Cardiovascular Surgical History: Reports: None Respiratory Surgical History: Reports: None GI Surgical History: Reports: None Female Surgical History: Reports: None Endocrine Surgical History: Reports: None Neurological Surgical History: Reports: None Musculoskeletal Surgical History: Reports: None Oncologic Surgical History: Reports: None Dermatological Surgical History: Reports: None Social & Family History - Family History Family Medical History: Noncontributory - Caffeine Use Caffeine Use: Reports: None ED ROS GENERAL - Review of Systems Review Of Systems: Comprehensive ROS is negative, except as noted in HPI. ED EXAM, GENERAL - Physical Exam Exam: See Below (See dictation) Course - Vital Signs Last Recorded V/S: Last Vital Signs Temp 97.9 F 07/17/20 20:34 Pulse 79 07/17/20 21:09 Resp 20 07/17/20 21:09 BP 109/78 07/17/20 21:09 Pulse Ox 99 07/17/20 21:09 - Orders/Labs/Meds Orders: Active Orders 24 hr Category Date Time Status EKG 12 Lead [EKG Documentation Completion] [RC] STAT Care 07/17/20 20:37 Active EKG Documentation Completion [RC] STAT Care 07/17/20 18:21 Active Sodium Chloride 0.9% [Normal Saline] 1,000 ml Med 07/17/20 18:30 Active IV ASDIRECTED Medication Orders Sodium Chloride (Normal Saline) 1,000 mls @ 999 mls/hr IV ASDIRECTED MISHA Last Admin: 07/17/20 19:03 Dose: 999 mls/hr Documented by: [id number] Labs: Laboratory Tests 07/17/20 07/17/20 07/17/20 Range/Units 18:50 18:50 18:56 WBC 7.63 (4.0-11.0) K/uL RBC 4.40 (4.30-5.90) M/uL Hgb 11.9 L (12.0-16.0) g/dL Hct 36.6 (36.0-46.0) % MCV 83.2 (80.0-98.0) fL MCH 27.0 (27.0-32.0) pg MCHC 32.5 (31.0-37.0) g/dL RDW Std Deviation 40.8 (28.0-62.0) fl RDW Coeff of [place] 13 (11.0-15.0) % Plt Count 369 (150-400) K/uL MPV 8.80 (7.40-12.00) fL Neut % (Auto) 72.7 (48.0-80.0) % Lymph % (Auto) 20.2 (16.0-40.0) % Williamson % (Auto) 5.6 (0.0-15.0) % Eos % (Auto) 1.0 (0.0-7.0) % Baso % (Auto) 0.5 (0.0-1.5) % Neut # (Auto) 5.5 (1.4-5.7) K/uL Lymph # (Auto) 1.5 (0.6-2.4) K/uL Williamson # (Auto) 0.4 (0.0-0.8) K/uL Eos # (Auto) 0.1 (0.0-0.7) K/uL Baso # (Auto) 0.0 (0.0-0.1) K/uL Nucleated RBC % 0.0 /100WBC Nucleated RBCs # 0 K/uL D-Dimer, Quantitative (0.0-0.50) mg/L FEU Sodium 139 (136-145) mmol/L Potassium 3.8 (3.5-5.1) mmol/L Chloride 103 (98-107) mmol/L Carbon Dioxide 23.5 (21.0-32.0) mmol/L BUN 4 L (7.0-18.0) mg/dL Creatinine 0.8 (0.6-1.0) mg/dL Est Cr Clr Drug Dosing 87.38 mL/min Estimated GFR (MDRD) > 60.0 ml/min Glucose 117 H (74-106) mg/dL Calcium 9.1 (8.5-10.1) mg/dL Total Bilirubin 0.1 L (0.2-1.0) mg/dL AST 31 (15-37) IU/L ALT 60 (14-63) IU/L Alkaline Phosphatase 85 (46-116) U/L Troponin I (0.000-0.056) ng/mL Total Protein 7.4 (6.4-8.2) g/dL Albumin 3.8 (3.4-5.0) g/dL Globulin 3.6 (2.6-4.0) g/dL Albumin/Globulin Ratio 1.1 (0.9-1.6) Urine Color YELLOW Urine Appearance CLEAR Urine pH 7.0 (5.0-8.0) Ur Specific Calvin <= 1.005 (1.001-1.035) Urine Protein NEGATIVE (NEGATIVE) mg/dL Urine Glucose (UA) NEGATIVE (NEGATIVE) mg/dL Urine Ketones NEGATIVE (NEGATIVE) mg/dL Urine Occult Blood SMALL H (NEGATIVE) Urine Nitrite NEGATIVE (NEGATIVE) Urine Bilirubin NEGATIVE (NEGATIVE) Urine Urobilinogen 0.2 (<2.0) EU/dL Ur Leukocyte Esterase NEGATIVE (NEGATIVE) Urine RBC 1-2 (0-2/HPF) Urine WBC 0-1 (0-5/HPF) Ur Epithelial Cells RARE (NONE-FEW) Urine Bacteria RARE (NEGATIVE) Urine HCG, Qual (NEGATIVE) Urine Opiates Screen (NEGATIVE) Ur Oxycodone Screen (NEGATIVE) Urine Methadone Screen (NEGATIVE) Ur Barbiturates Screen (NEGATIVE) Ur Phencyclidine Scrn (NEGATIVE) Ur Amphetamine Screen (NEGATIVE) U Methamphetamines Scrn (NEGATIVE) U Benzodiazepines Scrn (NEGATIVE) U Cocaine Metab Screen (NEGATIVE) U Marijuana (THC) Screen (NEGATIVE) 07/17/20 07/17/20 07/17/20 Range/Units 18:56 18:56 20:47 WBC (4.0-11.0) K/uL RBC (4.30-5.90) M/uL Hgb (12.0-16.0) g/dL Hct (36.0-46.0) % MCV (80.0-98.0) fL MCH (27.0-32.0) pg MCHC (31.0-37.0) g/dL RDW Std Deviation (28.0-62.0) fl RDW Coeff of [place] (11.0-15.0) % Plt Count (150-400) K/uL MPV (7.40-12.00) fL Neut % (Auto) (48.0-80.0) % Lymph % (Auto) (16.0-40.0) % Williamson % (Auto) (0.0-15.0) % Eos % (Auto) (0.0-7.0) % Baso % (Auto) (0.0-1.5) % Neut # (Auto) (1.4-5.7) K/uL Lymph # (Auto) (0.6-2.4) K/uL Williamson # (Auto) (0.0-0.8) K/uL Eos # (Auto) (0.0-0.7) K/uL Baso # (Auto) (0.0-0.1) K/uL Nucleated RBC % /100WBC Nucleated RBCs # K/uL D-Dimer, Quantitative 0.24 (0.0-0.50) mg/L FEU Sodium (136-145) mmol/L Potassium (3.5-5.1) mmol/L Chloride (98-107) mmol/L Carbon Dioxide (21.0-32.0) mmol/L BUN (7.0-18.0) mg/dL Creatinine (0.6-1.0) mg/dL Est Cr Clr Drug Dosing mL/min Estimated GFR (MDRD) ml/min Glucose (74-106) mg/dL Calcium (8.5-10.1) mg/dL Total Bilirubin (0.2-1.0) mg/dL AST (15-37) IU/L ALT (14-63) IU/L Alkaline Phosphatase (46-116) U/L Troponin I (0.000-0.056) ng/mL Total Protein (6.4-8.2) g/dL Albumin (3.4-5.0) g/dL Globulin (2.6-4.0) g/dL Albumin/Globulin Ratio (0.9-1.6) Urine Color Urine Appearance Urine pH (5.0-8.0) Ur Specific Calvin (1.001-1.035) Urine Protein (NEGATIVE) mg/dL Urine Glucose (UA) (NEGATIVE) mg/dL Urine Ketones (NEGATIVE) mg/dL Urine Occult Blood (NEGATIVE) Urine Nitrite (NEGATIVE) Urine Bilirubin (NEGATIVE) Urine Urobilinogen (<2.0) EU/dL Ur Leukocyte Esterase (NEGATIVE) Urine RBC (0-2/HPF) Urine WBC (0-5/HPF) Ur Epithelial Cells (NONE-FEW) Urine Bacteria (NEGATIVE) Urine HCG, Qual NEGATIVE (NEGATIVE) Urine Opiates Screen NEGATIVE (NEGATIVE) Ur Oxycodone Screen NEGATIVE (NEGATIVE) Urine Methadone Screen NEGATIVE (NEGATIVE) Ur Barbiturates Screen NEGATIVE (NEGATIVE) Ur Phencyclidine Scrn NEGATIVE (NEGATIVE) Ur Amphetamine Screen NEGATIVE (NEGATIVE) U Methamphetamines Scrn NEGATIVE (NEGATIVE) U Benzodiazepines Scrn NEGATIVE (NEGATIVE) U Cocaine Metab Screen NEGATIVE (NEGATIVE) U Marijuana (THC) Screen NEGATIVE (NEGATIVE) 07/17/20 Range/Units 20:47 WBC (4.0-11.0) K/uL RBC (4.30-5.90) M/uL Hgb (12.0-16.0) g/dL Hct (36.0-46.0) % MCV (80.0-98.0) fL MCH (27.0-32.0) pg MCHC (31.0-37.0) g/dL RDW Std Deviation (28.0-62.0) fl RDW Coeff of [place] (11.0-15.0) % Plt Count (150-400) K/uL MPV (7.40-12.00) fL Neut % (Auto) (48.0-80.0) % Lymph % (Auto) (16.0-40.0) % Williamson % (Auto) (0.0-15.0) % Eos % (Auto) (0.0-7.0) % Baso % (Auto) (0.0-1.5) % Neut # (Auto) (1.4-5.7) K/uL Lymph # (Auto) (0.6-2.4) K/uL Williamson # (Auto) (0.0-0.8) K/uL Eos # (Auto) (0.0-0.7) K/uL Baso # (Auto) (0.0-0.1) K/uL Nucleated RBC % /100WBC Nucleated RBCs # K/uL D-Dimer, Quantitative (0.0-0.50) mg/L FEU Sodium (136-145) mmol/L Potassium (3.5-5.1) mmol/L Chloride (98-107) mmol/L Carbon Dioxide (21.0-32.0) mmol/L BUN (7.0-18.0) mg/dL Creatinine (0.6-1.0) mg/dL Est Cr Clr Drug Dosing mL/min Estimated GFR (MDRD) ml/min Glucose (74-106) mg/dL Calcium (8.5-10.1) mg/dL Total Bilirubin (0.2-1.0) mg/dL AST (15-37) IU/L ALT (14-63) IU/L Alkaline Phosphatase (46-116) U/L Troponin I < 0.050 (0.000-0.056) ng/mL Total Protein (6.4-8.2) g/dL Albumin (3.4-5.0) g/dL Globulin (2.6-4.0) g/dL Albumin/Globulin Ratio (0.9-1.6) Urine Color Urine Appearance Urine pH (5.0-8.0) Ur Specific Calvin (1.001-1.035) Urine Protein (NEGATIVE) mg/dL Urine Glucose (UA) (NEGATIVE) mg/dL Urine Ketones (NEGATIVE) mg/dL Urine Occult Blood (NEGATIVE) Urine Nitrite (NEGATIVE) Urine Bilirubin (NEGATIVE) Urine Urobilinogen (<2.0) EU/dL Ur Leukocyte Esterase (NEGATIVE) Urine RBC (0-2/HPF) Urine WBC (0-5/HPF) Ur Epithelial Cells (NONE-FEW) Urine Bacteria (NEGATIVE) Urine HCG, Qual (NEGATIVE) Urine Opiates Screen (NEGATIVE) Ur Oxycodone Screen (NEGATIVE) Urine Methadone Screen (NEGATIVE) Ur Barbiturates Screen (NEGATIVE) Ur Phencyclidine Scrn (NEGATIVE) Ur Amphetamine Screen (NEGATIVE) U Methamphetamines Scrn (NEGATIVE) U Benzodiazepines Scrn (NEGATIVE) U Cocaine Metab Screen (NEGATIVE) U Marijuana (THC) Screen (NEGATIVE) Meds: Medications Generic Name Dose Route Start Last Admin Trade Name Freq PRN Reason Stop Dose Admin Sodium Chloride 1,000 mls @ 999 mls/hr 07/17/20 18:30 07/17/20 19:03 Normal Saline IV 999 mls/hr ASDIRECTED MISHA Administration Departure - Departure Time of Disposition: 21:37 Disposition: Home, Self-Care 01 Clinical Impression: Tachycardia Diarrhea Qualifiers: Diarrhea type: unspecified type Qualified Code(s): R19.7 - Diarrhea, unspecified - Discharge Information Instructions: Sinus Tachycardia Referrals: Consuelo Man CNM [Primary Care Provider] - Forms: ED Department Discharge Additional Instructions: The following information is given to patients seen in the emergency department who are being discharged to home. This information is to outline your options for follow-up care. We provide all patients seen in our emergency department with a follow-up referral. The need for follow-up, as well as the timing and circumstances, are variable depending upon the specifics of your emergency department visit. If you don't have a primary care physician on staff, we will provide you with a referral. We always advise you to contact your personal physician following an emergency department visit to inform them of the circumstance of the visit and for follow-up with them and/or the need for any referrals to a consulting specialist. The emergency department will also refer you to a specialist when appropriate. This referral assures that you have the opportunity for follow-up care with a specialist. All of these measure are taken in an effort to provide you with optimal care, which includes your follow-up. Under all circumstances we always encourage you to contact your private physician who remains a resource for coordinating your care. When calling for follow-up care, please make the office aware that this follow-up is from your recent emergency room visit. If for any reason you are refused follow-up, please contact the [facility] Emergency Department at and asked to speak to the emergency department charge nurse. [facility] [address] [place] [address] [facility] [address] [place] [address] Thank you for choosing the [facility] emergency department in [place] for your medical needs today. It was a pleasure caring for you. Today you were seen in the emergency department for EKG evaluation, persistent diarrhea, and tachycardia. 1. Today your physical exam was normal with the exception of intermittent tachycardia. Your lab work, CT of abdomen/pelvis were normal. Please start to introduce solids into your diet (bananas, rice toast, etc...) to bulk up your stools. I would like you to be re-seen by your primary care provider, as I feel there is some component of anxiety related to your symptoms. The EKG showed some T abnormalities, which are not life threatening, but should be further monitored by a display screen fabricator. You can either be seen here in [place] by Dr Diaz or return to [facility] in [place]. 2. Try to decrease your stress. Increase your fluids. Alternate Tylenol and Ibuprofen as needed. 3. We always encourage you to follow up with your primary care provider or recommended specialist in the next few days for re-evaluation and further care/management. If your symptoms should worsen, new symptoms develop or any of the signs and symptoms we discussed should arise please return to the emergency room or call 911 (if needed). Sepsis Event Note (ED) - Focused Exam Vital Signs: Vital Signs Temp Pulse Resp BP Pulse Ox 07/17/20 21:09 79 20 109/78 99 07/17/20 20:34 97.9 F 68 14 98/67 99 07/17/20 18:20 98.8 F 130 H 17 128/92 H 96 - My Orders Last 24 Hours: My Active Orders 07/17/20 18:21 EKG Documentation Completion [RC] STAT 07/17/20 18:30 Sodium Chloride 0.9% [Normal Saline] 1,000 ml IV ASDIRECTED 07/17/20 20:37 EKG 12 Lead [EKG Documentation Completion] [RC] STAT - Assessment/Plan Last 24 Hours: My Active Orders 07/17/20 18:21 EKG Documentation Completion [RC] STAT 07/17/20 18:30 Sodium Chloride 0.9% [Normal Saline] 1,000 ml IV ASDIRECTED 07/17/20 20:37 EKG 12 Lead [EKG Documentation Completion] [RC] STAT
[2020-07-17] MEDS ORDERED: Sodium Chloride 0.9% 1,000 ML IV SCH (18:30)
[2020-07-17 19:16] LABS: BLOOD UREA NITROGEN,BUN 4 mg/dL (7.0-18.0); CARBON DIOXIDE,CO2 23.5 mmol/L (21.0-32.0); CHLORIDE,CL 103 mmol/L (98-107); GLUCOSE RANDOM 117 mg/dL (74-106); POTASSIUM,K 3.8 mmol/L (3.5-5.1); SODIUM,NA 139 mmol/L (136-145)
--- NOTE | 2020-07-17 20:02 | CT ---
CT abdomen and pelvis Technique: Multiple axial sections were obtained from above the dome of the diaphragm inferiorly through the pubic symphysis. Intravenous and oral contrast not utilized. Comparison: No prior abdominal imaging is available. Findings: Visualized lung bases show nothing acute. Noncontrast appearance of the liver shows no discrete abnormality. Spleen appears normal in size. Kidneys show no abnormal calcifications. Ureters showed no dilatation or abnormal calcifications. Pancreas shows no discrete abnormality. Gallbladder contains no calcified gallstones. Adrenal glands show no nodule. Aorta shows no aneurysm. No retroperitoneal adenopathy or mesenteric abnormalities are seen. No pelvic mass or adenopathy is seen. No free fluid or inflammatory change is appreciated. Bone window settings were reviewed which appear within normal limits for the patient's age. Impression: 1. No discrete abnormality is appreciated on noncontrast CT study of the abdomen and pelvis. Diagnostic code #1 This report was dictated in MDT
== END 2020-07-17 21:56 | disposition home or self-care (01) ==
LOC: MW.ED 17:51
DX: R00.0 Tachycardia, unspecified (principal); R19.7 Diarrhea, unspecified; I10 Essential (primary) hypertension; Z91.041 Radiographic dye allergy status; Z88.8 Allergy status to other drugs, medicaments and biological substances
CPT/HCPCS: 36415; 74176; 80053; 80305; 81001; 81025; 84484; 85025; 85379; 93005; 96360; 99285; J7030; 99284

== ENCOUNTER 2020-07-19 09:13 | Emergency (ER) | payer BC, OTHER ==
[2020-07-19] MEDS ORDERED: Sodium Chloride 0.9% 2.5 ML Syringe FLUSH PRN (09:55)
[2020-07-19] MEDS ORDERED: Ondansetron 4 MG/2 ML SDV IVPUSH ONE (09:55)
[2020-07-19] MEDS ORDERED: Lactated Ringers 1,000 ML IV ONE (09:55)
[2020-07-19] MEDS ORDERED: Sodium Chloride 0.9% 10 ML Syringe FLUSH PRN (09:55)
--- NOTE | 2020-07-19 10:18 | EDM.PDOC ---
ED HPI GENERAL MEDICAL PROBLEM - General Chief Complaint: Gastrointestinal Problem Stated Complaint: PERSISTANT ZARINA Time Seen by Provider: 07/19/20 09:15 - History of Present Illness INITIAL COMMENTS - FREE TEXT/NARRATIVE: History of present illness: Patient presents with continued diarrhea. She has had diarrhea for 3 weeks apparently she was placed on propranolol for tachycardia had a bradycardic reaction was transferred to [place] and then discharged after a few days from her discharge she developed clear watery diarrhea and has had it ever since she states she is vomiting and cannot hold food down she has had multiple ED visits for this she is tested negative for C. difficile she has not been on any antibiotics prior to the initial onset she was treated with a course of Flagyl that seemed to help but the diarrhea return immediately when it was completed she has not had any foreign travel or untreated water she delivered a baby a couple months ago and was initially treated with propranolol for tachycardia re lated to supposed anxiety. Review of systems: As per history of present illness and below otherwise all systems reviewed and negative. Past medical history: As per history of present illness and as reviewed below otherwise noncontributory. Surgical history: As per history of present illness and as reviewed below otherwise noncontributory. Social history: No reported history of drug or alcohol abuse. Family history: As per history of present illness and as reviewed below otherwise noncontributory. Physical exam: HEENT: Atraumatic, normocephalic, pupils reactive, negative for conjunctival pallor or scleral icterus, mucous membranes moist, throat clear, neck supple, nontender, trachea midline. Lungs: Clear to auscultation, breath sounds equal bilaterally, chest nontender. Heart: S1S2, regular, negative for clicks, rubs, or JVD. Abdomen: Soft, nondistended, nontender. Negative for masses or hepatosplenomegaly. Negative for costovertebral tenderness. Pelvis: Stable nontender. Genitourinary: Deferred. Rectal: Deferred. Extremities: Atraumatic, negative for cords or calf pain. Neurovascular unremarkable. Neuro: Awake, alert, oriented. Cranial nerves II through XII unremarkable. Cerebellum unremarkable. Motor and sensory unremarkable throughout. Exam nonfocal. Psych: Patient is extremely anxious and tremulous. Diagnostics: [] Therapeutics: [] Impression: Anxiety, diarrhea [] Plan: Patient has had multiple ED visits for this she will be evaluated lab studies given Gracy and fluids and reassess. [] Definitive disposition and diagnosis as appropriate pending reevaluation and review of above. Abdomen Pain Score (Numeric/FACES): 3 - Related Data Allergies Allergy/AdvReac Type Severity Reaction Status Date / Time Iodinated Contrast Media Allergy Hives Verified 07/17/20 18:20 [Iodinated Contrast- Oral and IV Dye] propranolol Allergy Cannot Verified 07/17/20 18:20 Remember Home Meds: Home Meds Ondansetron [Zofran ODT] 4 mg PO Q6H PRN 7 Days #20 tab.dis 07/19/20 [Rx] Past Medical History - Past Health History Medical/Surgical History: Denies Medical/Surgical History HEENT History: Reports: Other (See Below) Other HEENT History: tinnitis Cardiovascular History: Reports: Hypertension, Other (See Below) Other Cardiovascular History: Wearing heart monitor beginning 06/19, tachycardia, was on propanolol for tachycardia and had a rx and was sent to [place]. Respiratory History: Reports: None Gastrointestinal History: Reports: Chronic Diarrhea, Other (See Below) Other Gastrointestinal History: past 2 months Genitourinary History: Reports: None OPAL POLISHER History: Reports: , Other (See Below) Other OPAL POLISHER History: Baby born 05/06/2018 Musculoskeletal History: Reports: None Neurological History: Reports: Other (See Below) Other Neuro History: sleep paralysis Psychiatric History: Reports: Anxiety Endocrine/Metabolic History: Reports: None Insulin Pump Model and Programmer Analyst Consultant: None Hematologic History: Reports: None Immunologic History: Reports: None Oncologic (Cancer) History: Reports: None Dermatologic History: Reports: None - Infectious Disease History Infectious Disease History: Reports: Influenza - Past Surgical History Head Surgeries/Procedures: Reports: None HEENT Surgical History: Reports: None Cardiovascular Surgical History: Reports: None Respiratory Surgical History: Reports: None GI Surgical History: Reports: None Female Surgical History: Reports: None Endocrine Surgical History: Reports: None Neurological Surgical History: Reports: None Musculoskeletal Surgical History: Reports: None Oncologic Surgical History: Reports: None Dermatological Surgical History: Reports: None Social & Family History - Family History Family Medical History: Noncontributory - Tobacco Use Smoking Status *Q: Never Smoker Second Hand Smoke Exposure: No - Caffeine Use Caffeine Use: Reports: None - Recreational Drug Use Recreational Drug Use: No ED ROS GENERAL - Review of Systems Review Of Systems: See Below ED EXAM, GENERAL - Physical Exam Exam: See Below Course - Vital Signs Text/Narrative:: Patient is feeling better now labs are unremarkable tachycardia is resolved to be discharged home with Zofran as recommended she follow-up with primary care doctor if she continues to have diarrhea it will be important for her to see primary care for a GI referral. Last Recorded V/S: Last Vital Signs Temp 36.6 C 07/19/20 09:40 Pulse 86 07/19/20 09:40 Resp 20 07/19/20 09:40 BP 121/90 07/19/20 09:40 Pulse Ox 100 07/19/20 09:40 - Orders/Labs/Meds Orders: Active Orders 24 hr Category Date Time Status Sodium Chloride 0.9% [Saline Flush] Med 07/19/20 09:55 Active 10 ml FLUSH ASDIRECTED PRN Sodium Chloride 0.9% [Saline Flush] Med 07/19/20 09:55 Active 2.5 ml FLUSH ASDIRECTED PRN Saline Lock Insert [OM.PC] Stat Oth 07/19/20 09:55 Ordered Medication Orders Sodium Chloride (Saline Flush) 10 ml FLUSH ASDIRECTED PRN PRN Reason: Keep Vein Open Last Admin: 07/19/20 10:12 Dose: 10 ml Documented by: GISEL Sodium Chloride (Saline Flush) 2.5 ml FLUSH ASDIRECTED PRN PRN Reason: Keep Vein Open Last Admin: 07/19/20 10:12 Dose: 2.5 ml Documented by: GISEL Labs: Laboratory Tests 07/19/20 07/19/20 07/19/20 Range/Units 10:00 10:00 10:16 WBC 7.26 (4.0-11.0) K/uL RBC 4.49 (4.30-5.90) M/uL Hgb 12.0 (12.0-16.0) g/dL Hct 37.9 (36.0-46.0) % MCV 84.4 (80.0-98.0) fL MCH 26.7 L (27.0-32.0) pg MCHC 31.7 (31.0-37.0) g/dL RDW Std Deviation 42.2 (28.0-62.0) fl RDW Coeff of [place] 14 (11.0-15.0) % Plt Count 337 (150-400) K/uL MPV 9.10 (7.40-12.00) fL Neut % (Auto) 68.1 (48.0-80.0) % Lymph % (Auto) 22.5 (16.0-40.0) % [place] % (Auto) 6.2 (0.0-15.0) % Eos % (Auto) 2.6 (0.0-7.0) % Baso % (Auto) 0.6 (0.0-1.5) % Neut # (Auto) 5.0 (1.4-5.7) K/uL Lymph # (Auto) 1.6 (0.6-2.4) K/uL [place] # (Auto) 0.5 (0.0-0.8) K/uL Eos # (Auto) 0.2 (0.0-0.7) K/uL Baso # (Auto) 0.0 (0.0-0.1) K/uL Nucleated RBC % 0.0 /100WBC Nucleated RBCs # 0 K/uL Sodium 137 (136-145) mmol/L Potassium 3.8 (3.5-5.1) mmol/L Chloride 104 (98-107) mmol/L Carbon Dioxide 21.9 (21.0-32.0) mmol/L BUN 6 L (7.0-18.0) mg/dL Creatinine 1.0 (0.6-1.0) mg/dL Est Cr Clr Drug Dosing 69.90 mL/min Estimated GFR (MDRD) > 60.0 ml/min Glucose 131 H (74-106) mg/dL Calcium 8.6 (8.5-10.1) mg/dL Total Bilirubin 0.2 (0.2-1.0) mg/dL AST 31 (15-37) IU/L ALT 57 (14-63) IU/L Alkaline Phosphatase 84 (46-116) U/L Total Protein 6.9 (6.4-8.2) g/dL Albumin 3.8 (3.4-5.0) g/dL Globulin 3.1 (2.6-4.0) g/dL Albumin/Globulin Ratio 1.2 (0.9-1.6) TSH 3rd Generation 1.54 (0.36-3.74) uIU/mL Urine Color SNEHA Urine Appearance SLT CLOUDY Urine pH 5.5 (5.0-8.0) Ur Specific [place] 1.015 (1.001-1.035) Urine Protein 100 H (NEGATIVE) mg/dL Urine Glucose (UA) NEGATIVE (NEGATIVE) mg/dL Urine Ketones NEGATIVE (NEGATIVE) mg/dL Urine Occult Blood LARGE H (NEGATIVE) Urine Nitrite NEGATIVE (NEGATIVE) Urine Bilirubin NEGATIVE (NEGATIVE) Urine Urobilinogen 0.2 (<2.0) EU/dL Ur Leukocyte Esterase NEGATIVE (NEGATIVE) Urine RBC TOO ROSANNA (0-2/HPF) Urine WBC 2-4 (0-5/HPF) Ur Epithelial Cells FEW (NONE-FEW) Urine Bacteria FEW (NEGATIVE) Urine HCG, Qual (NEGATIVE) 07/19/20 Range/Units 10:16 WBC (4.0-11.0) K/uL RBC (4.30-5.90) M/uL Hgb (12.0-16.0) g/dL Hct (36.0-46.0) % MCV (80.0-98.0) fL MCH (27.0-32.0) pg MCHC (31.0-37.0) g/dL RDW Std Deviation (28.0-62.0) fl RDW Coeff of [place] (11.0-15.0) % Plt Count (150-400) K/uL MPV (7.40-12.00) fL Neut % (Auto) (48.0-80.0) % Lymph % (Auto) (16.0-40.0) % Carson % (Auto) (0.0-15.0) % Eos % (Auto) (0.0-7.0) % Baso % (Auto) (0.0-1.5) % Neut # (Auto) (1.4-5.7) K/uL Lymph # (Auto) (0.6-2.4) K/uL Carson # (Auto) (0.0-0.8) K/uL Eos # (Auto) (0.0-0.7) K/uL Baso # (Auto) (0.0-0.1) K/uL Nucleated RBC % /100WBC Nucleated RBCs # K/uL Sodium (136-145) mmol/L Potassium (3.5-5.1) mmol/L Chloride (98-107) mmol/L Carbon Dioxide (21.0-32.0) mmol/L BUN (7.0-18.0) mg/dL Creatinine (0.6-1.0) mg/dL Est Cr Clr Drug Dosing mL/min Estimated GFR (MDRD) ml/min Glucose (74-106) mg/dL Calcium (8.5-10.1) mg/dL Total Bilirubin (0.2-1.0) mg/dL AST (15-37) IU/L ALT (14-63) IU/L Alkaline Phosphatase (46-116) U/L Total Protein (6.4-8.2) g/dL Albumin (3.4-5.0) g/dL Globulin (2.6-4.0) g/dL Albumin/Globulin Ratio (0.9-1.6) TSH 3rd Generation (0.36-3.74) uIU/mL Urine Color Urine Appearance Urine pH (5.0-8.0) Ur Specific [place] (1.001-1.035) Urine Protein (NEGATIVE) mg/dL Urine Glucose (UA) (NEGATIVE) mg/dL Urine Ketones (NEGATIVE) mg/dL Urine Occult Blood (NEGATIVE) Urine Nitrite (NEGATIVE) Urine Bilirubin (NEGATIVE) Urine Urobilinogen (<2.0) EU/dL Ur Leukocyte Esterase (NEGATIVE) Urine RBC (0-2/HPF) Urine WBC (0-5/HPF) Ur Epithelial Cells (NONE-FEW) Urine Bacteria (NEGATIVE) Urine HCG, Qual NEGATIVE (NEGATIVE) Meds: Medications Generic Name Dose Route Start Last Admin Trade Name Freq PRN Reason Stop Dose Admin Sodium Chloride 10 ml 07/19/20 09:55 07/19/20 10:12 Saline Flush FLUSH 10 ml ASDIRECTED PRN Administration Keep Vein Open Sodium Chloride 2.5 ml 07/19/20 09:55 07/19/20 10:12 Saline Flush FLUSH 2.5 ml ASDIRECTED PRN Administration Keep Vein Open Discontinued Medications Generic Name Dose Route Start Last Admin Trade Name Freq PRN Reason Stop Dose Admin Lactated Ringer's 1,000 mls @ 999 mls/hr 07/19/20 09:55 07/19/20 10:12 Ringers, Lactated IV 07/19/20 10:55 999 mls/hr .BOLUS ONE Administration Ondansetron HCl 4 mg 07/19/20 09:55 07/19/20 10:12 Zofran IVPUSH 07/19/20 09:56 4 mg ONETIME ONE Administration Departure - Departure Time of Disposition: 11:39 Disposition: Home, Self-Care 01 Condition: Good Clinical Impression: Diarrhea, Anxiety Diarrhea Qualifiers: Diarrhea type: unspecified type Qualified Code(s): R19.7 - Diarrhea, unspecified - Discharge Information *PRESCRIPTION DRUG MONITORING PROGRAM REVIEWED*: Not Applicable *COPY OF PRESCRIPTION DRUG MONITORING REPORT IN PATIENT HEENA: Not Applicable Prescriptions: Ondansetron [Zofran ODT] 4 mg PO Q6H PRN 7 Days #20 tab.dis PRN Reason: Nausea/Vomiting Referrals: Consuelo Man CNM [Primary Care Provider] - Forms: ED Department Discharge Additional Instructions: The following information is given to patients seen in the emergency department who are being discharged to home. This information is to outline your options for follow-up care. We provide all patients seen in our emergency department with a follow-up referral. The need for follow-up, as well as the timing and circumstances, are variable depending upon the specifics of your emergency department visit. If you don't have a primary care physician on staff, we will provide you with a referral. We always advise you to contact your personal physician following an emergency department visit to inform them of the circumstance of the visit and for follow-up with them and/or the need for any referrals to a consulting specialist. The emergency department will also refer you to a specialist when appropriate. This referral assures that you have the opportunity for follow-up care with a specialist. All of these measure are taken in an effort to provide you with optimal care, which includes your follow-up. Under all circumstances we always encourage you to contact your private physician who remains a resource for coordinating your care. When calling for follow-up care, please make the office aware that this follow-up is from your recent emergency room visit. If for any reason you are refused follow-up, please contact the [facility] Emergency Department at and asked to speak to the emergency department charge nurse. Sepsis Event Note (ED) - Evaluation Sepsis Screening Result: No Definite Risk - Focused Exam Vital Signs: Vital Signs Temp Pulse Resp BP Pulse Ox 07/19/20 09:40 36.6 C 86 20 121/90 100 - My Orders Last 24 Hours: My Active Orders 07/19/20 09:55 Sodium Chloride 0.9% [Saline Flush] 10 ml FLUSH ASDIRECTED PRN Sodium Chloride 0.9% [Saline Flush] 2.5 ml FLUSH ASDIRECTED PRN Saline Lock Insert [OM.PC] Stat - Assessment/Plan Last 24 Hours: My Active Orders 07/19/20 09:55 Sodium Chloride 0.9% [Saline Flush] 10 ml FLUSH ASDIRECTED PRN Sodium Chloride 0.9% [Saline Flush] 2.5 ml FLUSH ASDIRECTED PRN Saline Lock Insert [OM.PC] Stat
[2020-07-19 10:36] LABS: BLOOD UREA NITROGEN,BUN 6 mg/dL (7.0-18.0); CARBON DIOXIDE,CO2 21.9 mmol/L (21.0-32.0); CHLORIDE,CL 104 mmol/L (98-107); GLUCOSE RANDOM 131 mg/dL (74-106); POTASSIUM,K 3.8 mmol/L (3.5-5.1); SODIUM,NA 137 mmol/L (136-145)
[2020-07-19] MEDS ORDERED: Dicyclomine 10 MG Cap PO ONE (12:15)
== END 2020-07-19 12:13 | disposition home or self-care (01) ==
LOC: MW.ED 09:13
DX: R19.7 Diarrhea, unspecified (principal); F41.9 Anxiety disorder, unspecified; I10 Essential (primary) hypertension; Z88.8 Allergy status to other drugs, medicaments and biological substances; Z91.041 Radiographic dye allergy status
CPT/HCPCS: 36415; 80053; 81001; 81025; 84443; 85025; 87324; 96361; 96374; 99284; J2405; J7120; 99283

== ENCOUNTER 2021-04-25 09:31 | Emergency (ER) | payer MEDICAID ==
--- NOTE | 2021-04-25 09:36 | EDM.PDOC ---
ED HPI GENERAL MEDICAL PROBLEM - General Stated Complaint: UTI Time Seen by Provider: 04/25/21 09:34 Source of Information: Reports: Patient History Limitations: Reports: No Limitations - History of Present Illness INITIAL COMMENTS - FREE TEXT/NARRATIVE: 22-year-old female past medical history recurrent urinary tract infections presents for concern for urinary tract infection. Patient notes that 2 weeks ago she was experiencing some dysuria and pelvic pressure with frequent urination. She went to an outside clinic and was given a prescription for Macrobid which she finished. It did not seem to help. She went to her [facility]ING [facility] and had another urinalysis which was normal and was not put on any additional antibiotics. She was that she is still having symptoms and starting to feel some nausea without vomiting. No CVA pain. No fevers. general Pain Score (Numeric/FACES): 3 - Related Data Allergies Allergy/AdvReac Type Severity Reaction Status Date / Time Iodinated Contrast Media Allergy Hives Verified 04/25/21 09:52 [Iodinated Contrast- Oral and IV Dye] propranolol Allergy Cannot Verified 04/25/21 09:52 Remember Home Meds: Home Meds Sulfamethoxazole/Trimethoprim [Bactrim Ds Tablet] 1 each PO BID 10 Days #20 tablet 04/25/21 [Rx] Past Medical History - Past Health History Medical/Surgical History: Denies Medical/Surgical History HEENT History: Reports: Other (See Below) Other HEENT History: tinnitis Cardiovascular History: Reports: Hypertension, Other (See Below) Other Cardiovascular History: Wearing heart monitor beginning 06/19, tachycardia, was on propanolol for tachycardia and had a rx and was sent to [place]. Respiratory History: Reports: None Gastrointestinal History: Reports: Chronic Diarrhea, Other (See Below) Other Gastrointestinal History: past 2 months Genitourinary History: Reports: None TOE LINING CLOSER History: Reports: , Other (See Below) Other TOE LINING CLOSER History: Baby born 05/06/2018 Musculoskeletal History: Reports: None Neurological History: Reports: Other (See Below) Other Neuro History: sleep paralysis Psychiatric History: Reports: Anxiety Endocrine/Metabolic History: Reports: None Insulin Pump Model and Cyber Transport Systems Specialist: None Hematologic History: Reports: None Immunologic History: Reports: None Oncologic (Cancer) History: Reports: None Dermatologic History: Reports: None - Infectious Disease History Infectious Disease History: Reports: Influenza - Past Surgical History Head Surgeries/Procedures: Reports: None HEENT Surgical History: Reports: None Cardiovascular Surgical History: Reports: None Respiratory Surgical History: Reports: None GI Surgical History: Reports: None Female Surgical History: Reports: None Endocrine Surgical History: Reports: None Neurological Surgical History: Reports: None Musculoskeletal Surgical History: Reports: None Oncologic Surgical History: Reports: None Dermatological Surgical History: Reports: None Social & Family History - Family History Family Medical History: No Pertinent Family History - Caffeine Use Caffeine Use: Reports: None ED ROS GENERAL - Review of Systems Review Of Systems: Comprehensive ROS is negative, except as noted in HPI. ED EXAM, GENERAL - Physical Exam Exam: See Below Exam Limited By: No Limitations General Appearance: Alert, WD/WN, No Apparent Distress Throat/Mouth: Normal Voice, No Airway Compromise Head: Atraumatic, Normocephalic Neck: Normal Inspection Respiratory/Chest: No Respiratory Distress, Lungs Clear, Normal Breath Sounds, No Accessory Muscle Use Cardiovascular: Normal Peripheral Pulses, Regular Rate, Rhythm GI/Abdominal: Soft, Non-Tender Back Exam: No: CVA Tenderness (L), CVA Tenderness (R) Extremities: Normal Inspection Neurological: Alert, Normal Cognition, Normal Gait Psychiatric: Normal Affect, Normal Mood Skin Exam: Warm, Dry, Intact, Normal Color Course - Vital Signs Last Recorded V/S: Last Vital Signs Temp 97.6 F 04/25/21 09:50 Pulse 85 04/25/21 09:50 Resp BP 128/77 04/25/21 09:50 Pulse Ox 99 04/25/21 09:50 - Orders/Labs/Meds Labs: Laboratory Tests 04/25/21 04/25/21 Range/Units 09:39 09:39 Urine Color YELLOW Urine Appearance CLEAR Urine pH 5.0 (5.0-8.0) Ur Specific [place] <= 1.005 (1.001-1.035) Urine Protein NEGATIVE (NEGATIVE) mg/dL Urine Glucose (UA) NEGATIVE (NEGATIVE) mg/dL Urine Ketones NEGATIVE (NEGATIVE) mg/dL Urine Occult Blood NEGATIVE (NEGATIVE) Urine Nitrite NEGATIVE (NEGATIVE) Urine Bilirubin NEGATIVE (NEGATIVE) Urine Urobilinogen 0.2 (<2.0) EU/dL Ur Leukocyte Esterase NEGATIVE (NEGATIVE) Urine HCG, Qual NEGATIVE (NEGATIVE) Meds: Medications Discontinued Medications Generic Name Dose Route Start Last Admin Trade Name Freq PRN Reason Stop Dose Admin Ondansetron HCl 4 mg 04/25/21 09:53 04/25/21 10:00 Ondansetron 4 Mg Tab.Dis PO 04/25/21 09:54 4 mg ONETIME ONE Administration - Re-Assessments/Exams Free Text/Narrative Re-Assessment/Exam: 04/25/21 10:06 Patient is well-appearing. Normal vital signs. Her urinalysis does not show evidence of infection however this could be a partially treated UTI. Patient is that she did not have a urine culture done to see if she was sensitive to Macrobid. Considering her symptoms we will get a urine culture which will be a send out. Patient notes that she has follow-up with her [facility]E [facility]ING [facility] on Monday and results should be back by then. We will place her on antibiotics, Bactrim, for presumptive UTI failed outpatient possibly partially treated considering the normal urinalysis. I explained to patient that we will defer advanced work-up, labs, CT imaging as she is well-appearing without any vomiting and without significant abdominal pain. I advised her that since today's diagnosis is somewhat uncertain it is very important for her to follow-up with [facility] on Mon for further assessment to rule out other causes of her symptoms. I also discussed that if she is developing fever, worsening pain, inability to tolerate p.o. then she should come back to the emergency department rather than wait until appointment on Monday. Departure - Departure Time of Disposition: 10:09 Disposition: Home, Self-Care 01 Condition: Good Clinical Impression: UTI, Urinary tract infectious disease - Discharge Information Prescriptions: Sulfamethoxazole/Trimethoprim [Bactrim Ds Tablet] 1 each PO BID 10 Days #20 tablet Instructions: Urinary Tract Infection, Adult, [id number] Referrals: Yelena Lindquist CNM [Primary Care Provider] - Additional Instructions: Your urinalysis does not reveal evidence of urinary tract infection. This could be due to a partially treated infection considering the Macrobid you were recently on. As we discussed I will give you a course of Bactrim to treat for UTI and we did send a culture which should be back in the next couple of days. Definitely keep your follow-up with your [facility]E [facility]ING CL[facility]ER on Monday as your symptoms may be from something else and this needs to be worked up. If you are developing fever, worsening pain, inability to tolerate food secondary to vomiting then you should come back to the emergency department for further work-up here. The following information is given to patients seen in the emergency department who are being discharged to home. This information is to outline your options for follow-up care. We provide all patients seen in our emergency department with a follow-up referral. The need for follow-up, as well as the timing and circumstances, are variable depending upon the specifics of your emergency department visit. If you don't have a primary care physician on staff, we will provide you with a referral. We always advise you to contact your personal physician following an emergency department visit to inform them of the circumstance of the visit and for follow-up with them and/or the need for any referrals to a consulting specialist. The emergency department will also refer you to a specialist when appropriate. This referral assures that you have the opportunity for follow-up care with a specialist. All of these measure are taken in an effort to provide you with optimal care, which includes your follow-up. Under all circumstances we always encourage you to contact your private physician who remains a resource for coordinating your care. When calling for follow-up care, please make the office aware that this follow-up is from your recent emergency room visit. If for any reason you are refused follow-up, please contact the [facility] Emergency Department at and asked to speak to the emergency department charge nurse. Please follow up with your primary care physician. If you do not have a primary care physician, see below: [facility] [address] [place] [id number] [facility] [address] [place] [address] [facility] [address] [place] [address] Sepsis Event Note (ED) - Focused Exam Vital Signs: Vital Signs Temp Pulse BP Pulse Ox 04/25/21 09:50 97.6 F 85 128/77 99
[2021-04-25] MEDS ORDERED: Ondansetron 4 MG Tab.DIS PO ONE (09:53)
== END 2021-04-25 10:23 | disposition home or self-care (01) ==
LOC: MW.ED 09:31
DX: N39.0 Urinary tract infection, site not specified (principal); I10 Essential (primary) hypertension; Z91.041 Radiographic dye allergy status; Z88.8 Allergy status to other drugs, medicaments and biological substances
CPT/HCPCS: 81003; 81025; 87086; 99283; A9270

== ENCOUNTER 2024-01-07 01:01 | Emergency (ER) | payer BC | END 2024-01-07 02:19 | disposition home or self-care (01) | LOC: MW.ED 01:01 | DX: K59.00 Constipation, unspecified (principal); I10 Essential (primary) hypertension; Z88.8 Allergy status to other drugs, medicaments and biological substances; Z91.041 Radiographic dye allergy status | CPT/HCPCS: 74018; 74018-26; 99282; 99283 ==

== ENCOUNTER 2024-12-12 20:30 | Emergency (ER) | payer BC ==
[2024-12-12 21:11] LABS: BASOPHILS ABSOLUTE AUTO 0.07 K/uL (0.00-0.20); BASOPHILS PERCENT AUTO 0.7 % (0.0-1.0); EOSINOPHILS ABSOLUTE AUTO 0.39 K/uL (0.00-0.45); HEMATOCRIT 35.1 % (37.0-47.0); HEMOGLOBIN 12.1 g/dL (12.0-16.0); IMMATURE GRAN ABSOLUTE AUTO 0.02 K/uL (0.00-0.05); IMMATURE GRAN PERCENT AUTO 0.2 % (0.0-0.4); LYMPHOCYTES ABSOLUTE AUTO 2.55 K/uL (1.00-4.80); LYMPHOCYTES PERCENT AUTO 26.5 % (24.0-44.0); MEAN CORPUSCULAR HEMOGLOBIN 28.9 pg (28.0-32.0); MEAN CORPUSCULAR HGB CONC 34.5 g/dL (32.0-36.0); MEAN PLATELET VOLUME 9.2 fL (9.4-12.3); MONOCYTES ABSOLUTE AUTO 0.59 K/uL (0.00-0.80); MONOCYTES PERCENT AUTO 6.1 % (0.0-8.0); NEUTROPHILS ABSOLUTE AUTO 6.02 K/uL (1.80-7.70); NEUTROPHILS PERCENT AUTO 62.5 % (41.0-71.0); PLATELET COUNT,PLT 267 K/uL (150-400); RED BLOOD CELL COUNT 4.18 M/uL (4.10-5.30); WHITE BLOOD CELL COUNT,WBC 9.64 K/uL (3.9-11.3)
[2024-12-12 21:18] LABS: INR 1.1 (0.86-1.11)
[2024-12-12 21:45] LABS: A/G RATIO 1.2 (0.9-1.6); ALBUMIN 4.1 g/dL (3.4-5.0); BILIRUBIN TOTAL 0.3 mg/dL (0.2-1.0); CALCIUM 9.3 mg/dL (8.5-10.1); CARBON DIOXIDE,CO2 23.1 mmol/L (21.0-32.0); CREATININE 0.9 mg/dL (0.6-1.0); EST CRCL DRUG DOSING (CG) 74.23 mL/min; POTASSIUM,K 3.2 mmol/L (3.5-5.1); PROTEIN TOTAL,TP 7.4 g/dL (6.4-8.2)
[2024-12-12 22:19] LABS: BILIRUBIN,URINE NEGATIVE (NEGATIVE); COLOR,URINE YELLOW; GLUCOSE,URINE NEGATIVE (NEGATIVE); KETONES,URINE TRACE mg/dL (NEGATIVE); LEUKOCYTE ESTERASE,URINE NEGATIVE (NEGATIVE); NITRITE,URINE NEGATIVE (NEGATIVE); OCCULT BLOOD,URINE MODERATE (NEGATIVE); PROTEIN,URINE NEGATIVE (NEGATIVE); UROBILINOGEN,URINE 0.2 EU/dL (<2.0)
[2024-12-12 22:22] LABS: APPEARANCE,URINE HAZY
[2024-12-12 22:31] LABS: BACTERIA,URINE FEW (NEGATIVE); EPITHELIAL CELLS,URINE RARE (NONE-FEW); WBC,URINE NONE SEEN (0-5/HPF); YEAST,URINE OCCASIONAL
[2024-12-12 23:12] LABS: CANDIDA DNA PROBE NEGATIVE (NEGATIVE); GARDNERELLA DNA PROBE NEGATIVE (NEGATIVE); TRICHOMONAS DNA PROBE NEGATIVE (NEGATIVE)
== END 2024-12-12 23:31 | disposition home or self-care (01) ==
LOC: MW.ED 20:30
DX: O20.9 Hemorrhage in early pregnancy, unspecified (principal); Z67.40 Type O blood, Rh positive; Z88.8 Allergy status to other drugs, medicaments and biological substances; Z91.041 Radiographic dye allergy status; Z79.899 Other long term (current) drug therapy; Z75.8 Other problems related to medical facilities and other health care; Z3A.01 Less than 8 weeks gestation of pregnancy
CPT/HCPCS: 36415; 76817; 76817-26; 80053; 81001; 84702; 85025; 85610; 86850; 86900; 86901; 87480; 87510; 87660; 99284

== ENCOUNTER 2024-12-28 10:57 | Day surgery (SDC) | payer BC ==
[2024-12-28 13:53] LABS: BASOPHILS ABSOLUTE AUTO 0.05 K/uL (0.00-0.20); BASOPHILS PERCENT AUTO 0.6 % (0.0-1.0); EOSINOPHILS ABSOLUTE AUTO 0.04 K/uL (0.00-0.45); EOSINOPHILS PERCENT AUTO 0.5 % (0.0-6.0); HEMATOCRIT 32.7 % (37.0-47.0); HEMOGLOBIN 11.3 g/dL (12.0-16.0); IMMATURE GRAN ABSOLUTE AUTO 0.01 K/uL (0.00-0.05); IMMATURE GRAN PERCENT AUTO 0.1 % (0.0-0.4); LYMPHOCYTES ABSOLUTE AUTO 0.88 K/uL (1.00-4.80); LYMPHOCYTES PERCENT AUTO 10.1 % (24.0-44.0); MEAN CORPUSCULAR HGB CONC 34.6 g/dL (32.0-36.0); MEAN CORPUSCULAR VOLUME 84.1 fL (83.0-99.0); MEAN PLATELET VOLUME 8.9 fL (9.4-12.3); MONOCYTES ABSOLUTE AUTO 0.35 K/uL (0.00-0.80); NEUTROPHILS ABSOLUTE AUTO 7.39 K/uL (1.80-7.70); NEUTROPHILS PERCENT AUTO 84.7 % (41.0-71.0); PLATELET COUNT,PLT 308 K/uL (150-400); RED BLOOD CELL COUNT 3.89 M/uL (4.10-5.30); WHITE BLOOD CELL COUNT,WBC 8.72 K/uL (3.9-11.3)
[2024-12-28 14:01] LABS: INR 1.08 (0.86-1.11); PTT,PARTIAL THROMBOPLSTIN TIME 29.1 SEC (23.9-30.7)
[2024-12-28 14:10] LABS: A/G RATIO 1.1 (0.9-1.6); BILIRUBIN TOTAL 0.4 mg/dL (0.2-1.0); CARBON DIOXIDE,CO2 22.2 mmol/L (21.0-32.0); CREATININE 0.9 mg/dL (0.6-1.0); EST CRCL DRUG DOSING (CG) 70.98 mL/min; POTASSIUM,K 3.9 mmol/L (3.5-5.1); PROTEIN TOTAL,TP 7.5 g/dL (6.4-8.2)
[2024-12-28] MEDS ORDERED: Sodium Chloride 0.9% 2.5 ML Syringe FLUSH PRN (14:51)
[2024-12-28] MEDS ORDERED: Sodium Chloride 0.9% 20 ML SDV IV PRN (14:51)
[2024-12-28] MEDS ORDERED: Sodium Chloride 0.9% 10 ML Syringe FLUSH PRN (14:51)
[2024-12-28] MEDS ORDERED: Bupivacaine 0.25% 30 ML SDV ONE (15:01)
[2024-12-28] MEDS ORDERED: propofoL 500 MG/50 ML 50 ML ONE ×2 (15:12→16:42)
[2024-12-28] MEDS ORDERED: Morphine 10 MG/ML SDV ONE (15:13)
[2024-12-28] MEDS ORDERED: Propofol 200 MG/20 ML SDV ONE (15:13)
[2024-12-28] MEDS ORDERED: fentaNYL 250 MCG/5 ML SDV ONE (15:13)
[2024-12-28] MEDS ORDERED: Ropivacaine 0.5% 5 MG/ML 30 ML SDV ONE (15:18)
[2024-12-28] MEDS ORDERED: Famotidine 20 MG/2 ML SDV ONE (15:19)
[2024-12-28] MEDS ORDERED: Sodium Chloride 0.9% 20 ML ONE (15:19)
[2024-12-28] MEDS ORDERED: Ketamine HCL/NACL, ISO-OSM 50 MG/5 ML Syringe ONE (15:21)
[2024-12-28] MEDS ORDERED: Lidocaine 2% 11 ML Jelly Filled Syringe ONE ×2 (15:45→21:55)
[2024-12-28] MEDS ORDERED: ceFAZolin 1 GM Vial ONE (15:58)
[2024-12-28] MEDS ORDERED: fentaNYL 100 MCG/2 ML SDV ONE (16:25)
[2024-12-28] MEDS ORDERED: Sugammadex Sodium 200 MG/2 ML VIAL IV ONE (17:09)
[2024-12-28] MEDS ORDERED: Ondansetron 4 MG/2 ML SDV ONE (17:09)
[2024-12-28] MEDS ORDERED: dexmedeTOMIDine HCl 200 MCG/2 ML SDV ONE (17:09)
[2024-12-28] MEDS ORDERED: Dexamethasone 4 MG/ML 5 ML MDV ONE (17:09)
[2024-12-28] MEDS ORDERED: HYDROmorphone 1 MG/ML Syringe ONE ×2 (17:28→17:39)
[2024-12-28] MEDS ORDERED: diphenhydrAMINE 50 MG/ML SDV ONE (18:01)
[2024-12-28] MEDS ORDERED: Acetaminophen/oxyCODONE 325-5 MG Tab PO PRN (18:27)
[2024-12-28] MEDS ORDERED: Naloxone 0.4 MG/ML SDV IVPUSH PRN (18:27)
[2024-12-28] MEDS ORDERED: HYDROmorphone 1 MG/ML Syringe IVPUSH PRN (18:27)
[2024-12-28] MEDS: ceFAZolin 1 GM Vial IM ONE (19:20)
[2024-12-29] MEDS ORDERED: Morphine 4 MG/ML Syringe IVPUSH PRN (00:05)
[2024-12-29] MEDS ORDERED: Ondansetron 4 MG/2 ML SDV IVPUSH PRN (00:05)
[2024-12-29] MEDS ORDERED: Acetaminophen/oxyCODONE 325-5 MG Tab PO PRN (00:05)
[2024-12-29] MEDS ORDERED: Naloxone 0.4 MG/ML SDV IVPUSH PRN (00:05)
[2024-12-29] MEDS ORDERED: Ibuprofen 600 MG Tab PO PRN (00:05)
[2024-12-29] MEDS ORDERED: Promethazine 25 MG/ML SDV IM PRN (00:05)
[2024-12-29 06:08] LABS: HEMATOCRIT 26.7 % (37.0-47.0); HEMOGLOBIN 9.1 g/dL (12.0-16.0); MEAN CORPUSCULAR HEMOGLOBIN 28.7 pg (28.0-32.0); MEAN CORPUSCULAR HGB CONC 34.1 g/dL (32.0-36.0); MEAN CORPUSCULAR VOLUME 84.2 fL (83.0-99.0); MEAN PLATELET VOLUME 9.3 fL (9.4-12.3); PLATELET COUNT,PLT 259 K/uL (150-400); RED BLOOD CELL COUNT 3.17 M/uL (4.10-5.30); WHITE BLOOD CELL COUNT,WBC 12.54 K/uL (3.9-11.3)
[2024-12-29] MEDS: Acetaminophen/HYDROcodone 325-5 MG Tab PO PRN (07:50)
== END 2024-12-29 09:40 | disposition home or self-care (01) ==
LOC: MW.ED 10:57 → MW.MS 14:26 → MW.SDS 14:26
PROVIDERS: ATTEND Obstetrics & Gynecology
DX: O00.101 Right tubal pregnancy without intrauterine pregnancy (principal); I10 Essential (primary) hypertension; F41.9 Anxiety disorder, unspecified; Z91.041 Radiographic dye allergy status
CPT/HCPCS: 36415; 59151; 76817; 80053; 84702; 85025; 85027; 85610; 85730; 86850; 86900; 86901; 93005; 99285; A9270; J0131; J0665; J0690; J1100; J1200; J2272; J2405; J2704; J2795; J3010; 00840; 64488; 93010; 99203; 99283; J1171; J3490

== ENCOUNTER 2025-08-11 08:50 | Emergency (ER) | payer BC ==
[2025-08-11 10:03] LABS: MEAN PLATELET VOLUME 9.3 fL (9.4-12.3); NRBC PERCENT 0.0 /100WBC (0.0-0.2); PLATELET COUNT,PLT 280 K/uL (150-400); RED BLOOD CELL COUNT 4.79 M/uL (4.10-5.30); WHITE BLOOD CELL COUNT,WBC 5.11 K/uL (3.9-11.3)
[2025-08-11 10:16] LABS: A/G RATIO 1.1 (0.9-1.6); ALANINE AMINOTRANSFERASE,ALT 12.0 IU/L (14-63); ASPARTATE AMNIOTRANSFERASE,AST 16.0 IU/L (15-37); BILIRUBIN TOTAL 0.3 mg/dL (0.2-1.0); BLOOD UREA NITROGEN,BUN 13.0 mg/dL (7.0-18.0); CARBON DIOXIDE,CO2 27.5 mmol/L (21.0-32.0); CHLORIDE,CL 104.0 mmol/L (98-107); CREATININE 1.0 mg/dL (0.6-1.0); EST CRCL DRUG DOSING (CG) 66.81 mL/min; GLUCOSE RANDOM 106.0 mg/dL (74-106); POTASSIUM,K 4.4 mmol/L (3.5-5.1); PROTEIN TOTAL,TP 7.6 g/dL (6.4-8.2); SODIUM,NA 139.0 mmol/L (136-145)
[2025-08-11 10:17] LABS: ESTIMATED GFR 77.0 mL/min (>60)
[2025-08-11 10:30] LABS: EOSINOPHILS ABSOLUTE MAN 0.26 K/uL (0.00-0.45); EOSINOPHILS PERCENT MAN 5 % (0-6); LYMPHOCYTES ABSOLUTE MAN 1.28 K/uL (1.00-4.80); LYMPHOCYTES PERCENT MAN 25 % (24-44); MONOCYTES ABSOLUTE MAN 0.20 K/uL (0.00-0.80); MONOCYTES PERCENT MAN 4 % (0-8); SEG NEUTROPHILS ABSOLUTE MAN 3.37 K/uL (1.80-7.70); SEG NEUTROPHILS PERCENT MAN 66 % (41-71)
== END 2025-08-11 10:47 | disposition home or self-care (01) ==
LOC: MW.ED 08:50
DX: R42 Dizziness and giddiness (principal)
CPT/HCPCS: 36415; 80053; 81025; 85007; 85027; 99283; 99284